=== PATIENT | female | born 1945 | race Caucasian/White ===

== ENCOUNTER → 2017-03-28 | Outpatient (CLI) | payer BC ==
[~2017-03-28] MED LIST: APIX5TAB PO; ASCO10006 PO; ASCO500T20 GT; ASP81TEC PO; CALC-69 PO; CALC-80 PO; DILT120C53 PO; DILT240C53; DILT240C86 PO; DILT360C36 PO; HYDR-3583 PO; IBAN150T5 PO; LEVO125T6 PO; LEVO200T PO; LEVO25TA2 PO; MAGN100T3 PO; MAGN250T13 PO; MAGN400T39 PO; METO-351 PO; METO-370 PO; METO-387 PO; MULT-608 PO; PANT40TA3 PO; RABE20TA PO; VITA-189 PO
--- NOTE | 2017-03-29 23:07 | Diagnostic Imaging Report ---
Digital mammogram bilateral screening with tomosynthesis This study was compared to the prior exams of 03/27/16, 03/26/15, 10/02/14 and 03/26/14. At this time, there are no current complaints. The current study was also evaluated with a Computer Aided Detection (CAD) system. The patient did undergo a lumpectomy for carcinoma in the right breast in 2010. The scar formation in the lumpectomy site in the upper-outer aspect of the right breast seen on the previous exams is again evident and no different. There is no sign of recurrent malignancy in this area. Fat necrosis calcifications are also visualized in this region. The overall appearance of the breast has not changed significantly otherwise. The fibroglandular tissues in both breasts are heterogeneously dense. This does limit the sensitivity of this exam. Overall, there does not appear to have been any adverse change. There is no primary or secondary sign of malignancy noted. The tomographic views also failed to show any sign of malignancy. The stereotactic clip in the left breast seen previously is again evident. IMPRESSION: 1. There is no evidence for recurrent malignancy in the lumpectomy site on the right. 2. There is no sign of malignancy involving either breast otherwise. ACR BI-RADS Category 1: Negative. Result letter will be mailed to the patient. Note: At least 10% of breast cancer is not imaged by mammography. Dictated by: Dictated on workstation # [id number]
== END ==
LOC: RAD 09:40
PROVIDERS: ATTEND Internal Medicine Hematology & Oncology
DX: Z12.31 Encounter for screening mammogram for malignant neoplasm of breast (principal); C50.919 Malignant neoplasm of unspecified site of unspecified female breast
CPT/HCPCS: 77067

== ENCOUNTER 2017-04-18 09:55 | Outpatient (RCR) | payer BC ==
[~2017-04-18 09:55] MED LIST changes: +METO-270 PO; +METO-272 PO; -METO-370 PO; -METO-387 PO
[2017-04-18 10:08] LABS: BASOPHILS # (AUTO) 0.1 10^3/uL (0.0-0.1); BASOPHILS % (AUTO) 1 % (0-10); EOSINOPHILS # (AUTO) 0.3 10^3/uL (0.0-0.3); EOSINOPHILS % (AUTO) 4 % (0-10); LYMPHOCYTES % (AUTO) 29 % (12-44); MEAN CORPUSCULAR HEMOGLOBIN 28 PG (25-34); MEAN CORPUSCULAR HGB CONC 32 G/DL (32-36); MEAN CORPUSCULAR VOLUME 87 FL (80-99); MEAN PLATELET VOLUME 9.6 FL (7.4-10.4); MONOCYTES # (AUTO) 0.5 X 10^3 (0.0-1.0); MONOCYTES % (AUTO) 8 % (0-12); NEUTROPHILS # (AUTO) 3.9 X 10^3 (1.8-7.8); NEUTROPHILS % (AUTO) 58 % (42-75); PLATELET COUNT 466 10^3/uL (130-400); RED BLOOD COUNT 4.54 10^6/uL (4.35-5.85); RED CELL DISTRIBUTION WIDTH 15.6 % (10.0-14.5); WHITE BLOOD COUNT 6.6 10^3/uL (4.3-11.0)
[2017-04-18 10:44] LABS: ALANINE AMINOTRANSFERASE 47 U/L (0-55); ALBUMIN 3.9 GM/DL (3.2-4.5); ANION GAP 7 MMOL/L (5-14); ASPARTATE AMINO TRANSFERASE 28 U/L (5-34); BILIRUBIN,TOTAL 0.6 MG/DL (0.1-1.0); BLOOD UREA NITROGEN 12 MG/DL (7-18); BUN/CREATININE RATIO 16; CALCIUM 9.4 MG/DL (8.5-10.1); CARBON DIOXIDE 27 MMOL/L (21-32); CHLORIDE 106 MMOL/L (98-107); CREATININE SERUM 0.73 MG/DL (0.60-1.30); GFR ESTIMATED > 60; GLUCOSE 88 MG/DL (70-105); POTASSIUM 4.3 MMOL/L (3.6-5.0); SODIUM 140 MMOL/L (135-145); TOTAL PROTEIN 7.4 GM/DL (6.4-8.2)
== END 2017-04-28 | disposition home or self-care (01) ==
LOC: ONC 09:55
PROVIDERS: ATTEND Internal Medicine Hematology & Oncology
DX: Z08 Encounter for follow-up examination after completed treatment for malignant neoplasm (principal); Z85.3 Personal history of malignant neoplasm of breast; I48.0 Paroxysmal atrial fibrillation; Z79.01 Long term (current) use of anticoagulants; Z92.3 Personal history of irradiation
CPT/HCPCS: 36415; 80053; 85025; 99213

== ENCOUNTER 2017-12-11 12:12 | Day surgery (SDC) | payer MEDICARE, BC ==
[~2017-12-11] VITALS: Ht 165.1 cm; Wt 113.4 kg
[2017-12-11] VITALS (11 sets, daily range): BP systolic 126–174; BP diastolic 66–99
[~2017-12-11 12:12] MED LIST changes: -METO-270 PO; -METO-272 PO; +METO-370 PO; +METO-387 PO
[2017-12-11] MEDS ORDERED: NS IV 1000 ML 3,000 ML ONE (12:54)
[2017-12-11 13:21] LABS: HEMOGLOBIN 14.3 G/DL (11.5-16.0); MEAN PLATELET VOLUME 10.5 FL (7.4-10.4); RED BLOOD COUNT 4.85 10^6/uL (4.35-5.85); RED CELL DISTRIBUTION WIDTH 15.3 % (10.0-14.5); WHITE BLOOD COUNT 8.1 10^3/uL (4.3-11.0)
[2017-12-11] MEDS ORDERED: NS IV 1000 ML 1,000 ML IV SCH ×2 (13:30→15:11)
[2017-12-11] MEDS ORDERED: REGADENOSON 0.4 MG/5 ML SYR (LEXISCAN) IV ONE (13:30)
[2017-12-11 13:32] LABS: INR 1.1 (0.8-1.4); PROTHROMBIN TIME PATIENT 14.1 SEC (12.2-14.7)
[2017-12-11] MEDS ORDERED: HEParin 1000 UNIT/ML (10ML VIAL) FOR BOLUS ONE (13:35)
[2017-12-11] MEDS ORDERED: LIDOCAINE 1% INJ 20 ML 20 ML VIAL ONE (13:36)
[2017-12-11 13:43] LABS: ALANINE AMINOTRANSFERASE 26 U/L (0-55); ALBUMIN 4.4 GM/DL (3.2-4.5); ALKALINE PHOSPHATASE 75 U/L (40-136); BILIRUBIN,TOTAL 0.6 MG/DL (0.1-1.0); BUN/CREATININE RATIO 14; CALCIUM 9.9 MG/DL (8.5-10.1); CARBON DIOXIDE 25 MMOL/L (21-32); CHLORIDE 105 MMOL/L (98-107); CHOLESTEROL 187 MG/DL (< 200); CREATININE SERUM 0.73 MG/DL (0.60-1.30); GFR ESTIMATED > 60; GLUCOSE 102 MG/DL (70-105); HDL CHOLESTEROL 64 MG/DL (40-60); POTASSIUM 3.9 MMOL/L (3.6-5.0); SODIUM 141 MMOL/L (135-145); TOTAL PROTEIN 7.9 GM/DL (6.4-8.2); TRIGLYCERIDES 83 MG/DL (<150); VLDL CHOLESTEROL 17 MG/DL (5-40)
[2017-12-11] MEDS ORDERED: DILT240C53 PO (13:52)
[2017-12-11] MEDS ORDERED: ACET-2422 PO (13:52)
[2017-12-11] MEDS ORDERED: METO-387 PO (13:52)
[2017-12-11] MEDS ORDERED: diphenhydrAMINE 50 MG/ML INJ (BENADRYL) ONE (14:10)
[2017-12-11] MEDS ORDERED: MIDAZOLAM 5 MG/5 ML (VERSED) VIAL ONE (14:10)
[2017-12-11] MEDS ORDERED: fentaNYL INJECTION 100 MCG/2 ML AMP ONE (14:10)
--- NOTE | 2017-12-11 14:34 | Cardiac Procedure Note-CS/ASA ---
Pre-Procedure Note Pre-Op Procedure Note H&P Reviewed The H&P was reviewed, patient examined and no changes noted. Date H&P Reviewed: December 11, 2017 Time H&P Reviewed: 14:33 Conscious Sedation Pre-Proced Time Reviewed: 14:33 ASA Class: 3 Airway Mallampati Classification: ([place] appropriate class) I. II. III, IV Lungs Heart ASA score ASA 1: a normal healthy patient ASA 2: a patient with a mild systemic disease (mid diabetes, controlled hypertension, obesity ASA 3: a patient with a severe systemic disease that limits activity (angina , COPD, prior Myocardial infarction) ASA 4: a patient with an incapacitating disease that is a constant threat to life (CHF, renal failure) ASA 5: a moribund patient not expected to survive 24 hrs. (ruptured aneurysm) ASA 6: a declared brain patient whose organs are being harvested. For emergent operations, add the letter E after the classification Grade 3 Sedation Plan: Analgesia, Amnesia, Plan communicated to team members, Discussed options with patient/fam, Discussed risks with patient/fam Note The patient is an appropriate candidate to undergo the planned procedure, sedation, and anesthesia. The patient immediately re-assessed prior to indication. ARIEL LEROY MD FACP FAC CCDS December 11, 2017 14:34
--- NOTE | 2017-12-11 15:13 | Discharge Inst-Post CATH ---
Discharge Inst-CATH Post Cardiac Cath D/C Inst Follow Up/Plan F/u with Dr Clark next week CARDIAC CATH DISCHARGE INSTRUCTIONS *Hold Metformin for 48 hours post heart cath. ACTIVITY * Go Home directly and rest. * Limit activity of the leg (or wrist if it was used) for 7 days including aerobics, swimming, jogging, bicycling, etc. * Restrict stair-climbing for 7 days if possible, if not, climb up with your non -cath leg, then bring together on the same step. * Avoid lifting, pushing, pulling or excessive movement of the affected extremity for 7 days. * Customary sexual activity may be resumed after 2 days-use caution not to use a position that strains or causes pain to the affected extremity. * No driving for 24 hours. * NO SMOKING. * Avoid straining for bowel movements for 7 days. * Gentle walking on level ground is allowed. * Returning to work will depend on the type of procedure and the results. Your doctor will discuss this with you. CALL YOUR DOCTOR FOR ANY OF THE FOLLOWING: *If bleeding from the puncture site occurs- Apply gentle pressure to site with clean cloth and call your doctor or EMS. * If a knot or lump forms under the skin, increases in size, or causes pain. * If bruising appears to be worsening or moving further down your leg instead of disappearing. * Temperature above 101 F. CARE OF YOUR GROIN INCISION; * Bruising or purple discoloration of the skin near the puncture site is common. * You may shower only, no bathtub bathing for 5 days. Be careful to avoid slipping as your leg may feel stiff. * If a closure device was used on your femoral artery, please see the attached guide regarding care of the device and your leg. * REMOVE the dressing from your groin the next day after your procedure in the shower. CARE OF YOUR WRIST INCISION; * Bruising or purple discoloration of the skin near the puncture site is common. * You may shower. * DO NOT submerge wrist. * Remove dressing in 24 hours. ARIEL CLARK MD FACP FAC CCDS December 11, 2017 15:13
--- NOTE | 2017-12-11 15:14 | Discharge Inst-Cardiology ---
Discharge Inst-Cardiac Discharge Medications Continued Medications: Acetaminophen (Acetaminophen ER) 650 Mg Tablet.er 1300 MG PO HS, TAB TAKES 2 (650 MG) TABLETS Apixaban (Eliquis) 5 Mg Tablet 5 MG PO BID, TAB Ascorbic Acid (Vitamin C) 1,000 Mg Tablet 1000 MG PO DAILY, TAB Calcium Citrate/Vitamin D3 (Calcium Citrate - Vit D Tablet) 1 Each Tablet 1 TAB PO BID, TAB Diltiazem HCl (Cartia Xt) 240 Mg Cap.er.24h 240 MG PO BID, CAP Levothyroxine Sodium (Synthroid) 200 Mcg Tablet 200 MCG PO DAILY, TAB TAKES ALONG WITH 25MCG TABLET Levothyroxine Sodium (Synthroid) 25 Mcg Tablet 25 MCG PO DAILY, TAB TAKES ALONG WITH 200MCG TABLET Magnesium Oxide (Magnesium) 250 Mg Tablet 250 MG PO DAILY, TAB Metoprolol Succinate (Metoprolol Succinate) 50 Mg Tab.er.24h 50 MG PO DAILY, TAB Metoprolol Succinate (Metoprolol Succinate) 25 Mg Tab.er.24h 25 MG PO HS, TAB Pantoprazole Sodium (Pantoprazole Sodium) 40 Mg Tablet.dr 40 MG PO DAILY, TAB Vitamin B Complex (B Complex) 1 Each Tablet 1 TAB PO DAILY, TAB ARIEL LEROY MD FACP FACC CCDS December 11, 2017 15:14
[2017-12-11] MEDS ORDERED: PATIENT MAY USE OWN MEDS, ALL PO SCH (15:15)
--- NOTE | 2017-12-11 19:42 | CARDIAC CATHETERIZATION ---
DATE OF SERVICE: 12/11/2017 The patient is a 72-year-old lady who has multiple coronary artery disease risk factors and who has been experiencing increasing shortness of breath. Cardiac catheterization was carried out after having obtained an informed consent. PROCEDURE: She was brought to the cardiac catheterization laboratory in a fasting state. Right groin was prepared and draped in the usual sterile fashion. Lidocaine 1% local anesthesia. Modified Seldinger technique was used to advance a 5-Ecuadorean sheath in right femoral artery, 5-[place]cuadorean JL4 catheter for left coronary angiography, 5-[place]cuadorean JR4 catheter for right coronary angiography, 5-[place]cuadorean pigtail catheter was used for left heart catheterization, left ventricular angiography. At the end of the procedure, angiography of the right femoral artery was carried out through the sheath and Mynx was used to achieve hemostasis. She tolerated the procedure well. HEMODYNAMICS: Left ventricular end-diastolic pressure following coronary angiography was 13 mmHg. There is no significant pressure gradient pullback across the aortic valve. Ascending aortic pressure was 130/74 with a mean of 95 mmHg. LEFT VENTRICULAR ANGIOGRAPHY: Left ventricular angiography was carried out in the right anterior oblique projection. Global left ventricular systolic function normal. No regional wall motion abnormalities seen. Left ventricular ejection fraction approximately 65%. There does not appear to be significant mitral regurgitation. CORONARY ANGIOGRAPHY: Left main coronary artery, left anterior descending artery, left circumflex artery, right coronary artery are all free of any angiographically significant coronary artery disease. Right coronary artery is dominant. CONCLUSION: 1. No angiographically significant coronary artery disease. 2. Normal regional wall motion. 3. Normal global left ventricular systolic function with an ejection fraction of 65%. 4. Mild elevation of left ventricular end-diastolic pressure. DISCUSSION AND RECOMMENDATIONS: Based on results of the study, her shortness of breath does not appear to be of coronary origin or related to cardiomyopathy. It appears likely that the shortness of breath is due to atrial fibrillation with an intermittently rapid ventricular rate. We have advised further follow up as an outpatient for further treatment of her atrial fibrillation. Oral anticoagulation for stroke prophylaxis being continued. Beta blockers and calcium channel blockers are being continued. Job ID: [id number] DocumentID: [id number] Dictated Date: 12/11/2017 15:18:32 Baking Powder Mixer Date: 12/11/2017 19:42:09 Dictated By: ARIEL LEROY MD, MA, FACP, FACC,
== END 2017-12-11 18:15 | disposition home or self-care (01) ==
LOC: CATH 12:12
PROVIDERS: ATTEND Internal Medicine Cardiovascular Disease
DX: I48.0 Paroxysmal atrial fibrillation (principal); R06.02 Shortness of breath; I08.3 Combined rheumatic disorders of mitral, aortic and tricuspid valves; E03.9 Hypothyroidism, unspecified; G47.33 Obstructive sleep apnea (adult) (pediatric); E66.9 Obesity, unspecified; Z68.41 Body mass index [BMI] 40.0-44.9, adult; Z79.01 Long term (current) use of anticoagulants; Z79.899 Other long term (current) drug therapy; Z87.891 Personal history of nicotine dependence
CPT/HCPCS: 36415; 80053; 80061; 85027; 85610; 85730; 87081; 93458

== ENCOUNTER 2017-12-25 06:55 | Day surgery (SDC) | payer MEDICARE ==
[2017-12-25] VITALS (7 sets, daily range): BP systolic 107–142; BP diastolic 62–104
[~2017-12-25] VITALS: Ht 165.1 cm; Wt 113.4 kg
[~2017-12-25 06:55] MED LIST changes: +ACET-2422 PO; +DILT240C53 PO
[2017-12-25] MEDS ORDERED: NS IV 1000 ML 1,000 ML ONE (07:04)
[2017-12-25] MEDS ORDERED: NS IV 1000 ML 1,000 ML IV SCH (07:15)
[2017-12-25 07:31] LABS: MEAN PLATELET VOLUME 10.3 FL (7.4-10.4); RED BLOOD COUNT 4.75 10^6/uL (4.35-5.85); RED CELL DISTRIBUTION WIDTH 15.4 % (10.0-14.5); WHITE BLOOD COUNT 8.1 10^3/uL (4.3-11.0)
[2017-12-25] MEDS ORDERED: FLEC100T PO (07:40)
[2017-12-25 07:43] LABS: INR 1.1 (0.8-1.4); PROTHROMBIN TIME PATIENT 14.1 SEC (12.2-14.7)
[2017-12-25] MEDS ORDERED: proPOfol 200 MG/20 ML (DIPRIVAN) VIAL IV ONE (07:48)
[2017-12-25] MEDS ORDERED: MIDAZOLAM 2 MG/2 ML (VERSED) VIAL ONE (07:48)
[2017-12-25 07:52] LABS: ALANINE AMINOTRANSFERASE 29 U/L (0-55); ALBUMIN 4.1 GM/DL (3.2-4.5); ALKALINE PHOSPHATASE 81 U/L (40-136); BILIRUBIN,TOTAL 0.4 MG/DL (0.1-1.0); BUN/CREATININE RATIO 19; CALCIUM 9.5 MG/DL (8.5-10.1); CARBON DIOXIDE 26 MMOL/L (21-32); CHLORIDE 105 MMOL/L (98-107); CHOLESTEROL 185 MG/DL (< 200); CREATININE SERUM 0.74 MG/DL (0.60-1.30); GFR ESTIMATED > 60; GLUCOSE 103 MG/DL (70-105); HDL CHOLESTEROL 59 MG/DL (40-60); POTASSIUM 4.3 MMOL/L (3.6-5.0); SODIUM 140 MMOL/L (135-145); TOTAL PROTEIN 7.8 GM/DL (6.4-8.2); TRIGLYCERIDES 82 MG/DL (<150); VLDL CHOLESTEROL 16 MG/DL (5-40)
--- NOTE | 2017-12-25 08:42 | Progress Note-Standard ---
Standard Progress Note Progress Notes/Assess & Plan Date Seen by Provider: December 25, 2017 Time Seen by Provider: 08:30 Progress/Assessment & Plan mac anesthesia. afib diagnosis. start time 0830 end time 0835. 50mg propofol iv and 2mg versed iv. patient tolerated procedure well. DERIK VICENTE CRNA December 25, 2017 08:42
--- NOTE | 2017-12-25 09:33 | Cardiac Procedure Note-CS/ASA ---
Pre-Procedure Note Pre-Op Procedure Note H&P Reviewed The H&P was reviewed, patient examined and no changes noted. Date H&P Reviewed: December 25, 2017 Time H&P Reviewed: 08:18 Conscious Sedation Pre-Proced Time Reviewed: 08:18 ASA Class: 3 Airway Mallampati Classification: ([place] appropriate class) I. II. III, IV Lungs Heart ASA score ASA 1: a normal healthy patient ASA 2: a patient with a mild systemic disease (mid diabetes, controlled hypertension, obesity ASA 3: a patient with a severe systemic disease that limits activity (angina , COPD, prior Myocardial infarction) ASA 4: a patient with an incapacitating disease that is a constant threat to life (CHF, renal failure) ASA 5: a moribund patient not expected to survive 24 hrs. (ruptured aneurysm) ASA 6: a declared brain patient whose organs are being harvested. For emergent operations, add the letter E after the classification Grade 3 Sedation Plan: Analgesia, Amnesia, Plan communicated to team members, Discussed options with patient/fam, Discussed risks with patient/fam Note The patient is an appropriate candidate to undergo the planned procedure, sedation, and anesthesia. The patient immediately re-assessed prior to indication. ARIEL LEROY MD FACP FAC CCDS December 25, 2017 09:33
--- NOTE | 2017-12-25 13:45 | OPERATIVE REPORT ---
DATE OF SERVICE: 12/25/2017 PREOPERATIVE DIAGNOSIS: Atrial fibrillation. POSTOPERATIVE DIAGNOSIS: Sinus rhythm. PROCEDURE PERFORMED: External electrical cardioversion. INDICATIONS: The patient is a 72-year-old lady, who is known to have paroxysmal atrial fibrillation, was on chronic anticoagulation with apixaban stroke prophylaxis. She has had recurrent atrial fibrillation. Previously, she has had electrical cardioversion in 2016. She now comes in for repeat electrical cardioversion due to persistent atrial fibrillation associated with the symptoms of palpitation and shortness of breath and signs of a difficult rate control. She has been treated with flecainide after cardiac catheterization did not show any significant coronary artery disease. She remained in atrial fibrillation and external electrical cardioversion was carried out today after having obtained an informed consent. DESCRIPTION OF PROCEDURE: [facility] A short acting anesthesia was given by the nurse ticket collector. She received 100 joules external synchronized electrical cardioversion, which did not convert her to sinus rhythm. She then received another 50 joules of synchronized external electrical cardioversion, which changed atrial fibrillation to sinus rhythm. She tolerated the procedure well. Job ID: [id number] DocumentID: [id number] Dictated Date: 12/25/2017 08:40:11 Film Processor Date: 12/25/2017 13:45:05 Dictated By: ARIEL LEROY MD, MA, FACP, FACC,
== END 2017-12-25 09:50 | disposition home or self-care (01) ==
LOC: CATH 06:55
PROVIDERS: ATTEND Nurse Practitioner Family
DX: I48.91 Unspecified atrial fibrillation (principal); Z11.2 Encounter for screening for other bacterial diseases; Z87.891 Personal history of nicotine dependence; R06.00 Dyspnea, unspecified; E03.9 Hypothyroidism, unspecified; G47.30 Sleep apnea, unspecified; K21.9 Gastro-esophageal reflux disease without esophagitis; Z68.39 Body mass index [BMI] 39.0-39.9, adult; E66.9 Obesity, unspecified
CPT/HCPCS: 36415; 80053; 80061; 85027; 85610; 85730; 87081; 92960; 93005

== ENCOUNTER → 2018-04-02 | Outpatient (CLI) | payer MEDICARE ==
[~2018-04-02] MED LIST changes: +FLEC100T PO
--- NOTE | 2018-04-02 13:02 | Diagnostic Imaging Report ---
INDICATION: Routine screening. COMPARISON: Comparison is made with prior mammogram from 03/28/2017 and 03/27/2016. TECHNIQUE: 2D and 3D bilateral screening mammography was performed with computer-aided detection (CAD) system. FINDINGS: Both breasts remain heterogeneously dense, limiting the sensitivity of mammography. Post-lumpectomy changes in the right breast with calcifications appear stable. Fibronodular parenchymal pattern in the left breast appears stable. There is a biopsy clip in the left breast. No dominant mass or malignant appearing microcalcifications are seen. The axillae are unremarkable. IMPRESSION: No mammographic features suspicious for malignancy are identified. ACR BI-RADS Category 2: Benign findings. Result letter will be mailed to the patient. Note: At least 10% of breast cancer is not imaged by mammography. Dictated by: Dictated on workstation # [id number]
== END ==
LOC: RAD 09:48
PROVIDERS: ATTEND Nurse Practitioner Adult Health
DX: Z12.31 Encounter for screening mammogram for malignant neoplasm of breast (principal)
CPT/HCPCS: 77067

== ENCOUNTER → 2018-05-15 | Outpatient (CLI) | payer MEDICARE ==
--- NOTE | 2018-05-15 15:30 | Diagnostic Imaging Report ---
PROCEDURE: MRI right joint lower extremity without contrast. TECHNIQUE: Multiplanar, multisequence non contrast-enhanced MRI of the right lower extremity was accomplished. INDICATION: Fall in January 2018. Patient complains of pain in the anterior and medial right knee. FINDINGS: Evaluation of the marrow does demonstrate an acute fracture of the distal femur. The fracture appears to be longitudinally oriented along the axis of the distal femur. Fracture line commences proximally at the medial cortex in the supracondylar location and extends slightly obliquely laterally through the intercondylar groove. This does extend to the articular surface. No significant displacement or angulation is seen. The proximal tibia and fibula appear intact. There is a small joint effusion present. There is some edema identified in the subcutaneous tissues. Tricompartmental degenerative changes are seen with joint space narrowing and marginal spurring. The PCL is intact. Proximal third fibers of the ACL are somewhat distorted likely secondary to the patient's distal femur fracture. Middle and distal third fibers of the ACL appear to be intact. Medial and lateral collateral ligament complexes appear to be intact. Medial meniscus is intact. The lateral meniscus body is significantly thinned perhaps on a degenerative basis. No discrete tear or displaced meniscal fragment is identified. The extensor mechanism is unremarkable. IMPRESSION: 1. Acute distal femur fracture with intra-articular extension, as described. 2. Poorly visualized proximal one third fibers of the ACL secondary to the fracture. Tear cannot be entirely excluded. The PCL is intact. No other ligamentous injury is seen. 3. Significant thinning of the body of the lateral meniscus which could be on a degenerative basis. No definite meniscal tear or displaced meniscal fragment is seen. 4. Tricompartmental degenerative changes and small joint effusion. Dr. Luis Fernando Anderson was notified of these results prior to this dictation. Dictated by: Dictated on workstation # [id number]
== END ==
LOC: RAD 13:07
PROVIDERS: ATTEND Orthopaedic Surgery
DX: S72.491A Other fracture of lower end of right femur, initial encounter for closed fracture (principal); S83.241A Other tear of medial meniscus, current injury, right knee, initial encounter; M17.11 Unilateral primary osteoarthritis, right knee; W19.XXXA Unspecified fall, initial encounter
CPT/HCPCS: 73721

== ENCOUNTER 2018-06-16 18:31 | Emergency (ER) | payer MEDICARE ==
[~2018-06-16] VITALS: Ht 165.1 cm; Wt 111.1 kg
[2018-06-16] MEDS ORDERED: HYDROcodone/APAP 7.5 MG/325 MG (LORTAB, LORCET PLUS) TABLET PO STA (19:51)
[2018-06-16] MEDS ORDERED: LIDOCAINE/EPI 1%-1:100,000 (XYLOCAINE) 20ML INJ ONE (20:00)
--- NOTE | 2018-06-16 20:09 | ED Lower Extremity ---
General Chief Complaint: Laceration Stated Complaint: FELL AT HOME, INJURED RIGHT VILLA Nursing Triage Note: PATIENT TO ER VIA WHEELCHAIR WITH DAUGHTER AND SPOUSE. PATIENT COMPLAINS OF A LACERATION TO THE RIGHT LOWER LEG. PATIENT STATES SHE HAD BROKEN HER RIGHT FEMUR IN JANUARY AND WAS JUST RELEASED TO WALK AGAIN. SHE STATES SHE WAS TRANSFERRING FROM HER WALKER TO THE WHEELCHAIR AND THE WHEELCHAIR WAS NOT LOCKED. SHE STATES THE WALKER CAUGHT HER RIGHT LOWER LEG AND SHE HAS A LARGE LACERATION TO THE RIGHT LOWER LEG. LACERATION IS DEEP WITH STEADY BLEEDING PRESENT. Nursing Sepsis Screen: No Definite Risk History of Present Illness Date Seen by Provider: Jun 16, 2018 Time Seen by Provider: 19:50 Initial Comments 72 year old female presents for laceration to her right lower extremity. She was transferring from her walker to her wheelchair, wheelchair was not walked and she fell, catching her lower leg on the walker and causing a laceration. She denies any head injury or additional complaints of discomfort related to the fall. Her right femur is nontender. There was no loss of consciousness. She is on Eliquis for atrial fibrillation. Her last tetanus was 2 years ago. Onset: just prior to arrival Pain/Injury Location: right leg (lower 1/3 ant tibia) Method of Injury: fell Allergies and Home Medications Allergies Coded Allergies: tetracycline (Unverified Allergy, Unknown, 03/23/16) cefdinir (Unverified Adverse Reaction, Intermediate, DIARRHEA, 12/14/10) Home Medications Acetaminophen 650 Mg Tablet.er, 1,300 MG PO BID PRN for PAIN-MILD, (Reported) TAKES 2 (650 MG) TABLETS Apixaban 5 Mg Tablet, 5 MG PO BID, (Reported) Ascorbic Acid 1,000 Mg Tablet, 1,000 MG PO DAILY, (Reported) Calcium Citrate/Vitamin D3 1 Each Tablet, 1 TAB PO DAILY, (Reported) Cephalexin 500 Mg Capsule, 500 MG PO TID Prescribed by: NOE HARRISON on 06/16/182118 Diltiazem HCl 240 Mg Cap.er.24h, 240 MG PO BID, (Reported) Flecainide Acetate 100 Mg Tablet, 100 MG PO Q12H, (Reported) Hydrocodone Bit/Acetaminophen 1 Tab Tab, 1 EACH PO Q6H Prescribed by: NOE HARRISON on 06/16/182118 Levothyroxine Sodium 200 Mcg Tablet, 200 MCG PO DAILY, (Reported) TAKES ALONG WITH 25MCG TABLET Levothyroxine Sodium 25 Mcg Tablet, 25 MCG PO DAILY, (Reported) TAKES ALONG WITH 200MCG TABLET Magnesium Oxide 250 Mg Tablet, 250 MG PO DAILY, (Reported) Metoprolol Succinate 50 Mg Tab.er.24h, 50 MG PO DAILY, (Reported) Metoprolol Succinate 25 Mg Tab.er.24h, 25 MG PO HS, (Reported) Pantoprazole Sodium 40 Mg Tablet.dr, 40 MG PO DAILY, (Reported) Vitamin B Complex 1 Each Tablet, 1 TAB PO DAILY, (Reported) Patient Home Medication List Home Medication List Reviewed: Yes Review of Systems Constitutional: no symptoms reported, see HPI Skin: see HPI, lesions (Large laceration right lower extremity ) All Other Systems Reviewed Negative Unless Noted: Yes Past Wjuukrb-Rpzkei-Ofscvg Hx Past Med/Social Hx: Reviewed Nursing Past Med/Soc Hx Patient Social History Alcohol Use: Denies Use Number of Drinks Today: Alcohol Beverage of Choice: Beer, Wine Recreational Drug Use: No Smoking Status: Former Smoker Type Used: Cigarettes Former Smoker, Quit: Jun 05, 2015 2nd Hand Smoke Exposure: No Recent Foreign Travel: No Contact w/Someone Who Travel: No Recent Infectious Disease Expo: No Recent Hopitalizations: No Immunizations Up To Date Tetanus Booster (TDap): Less than 5yrs PED Vaccines UTD: Yes Date of Pneumonia Vaccine: Apr 19, 2016 Date of Influenza Vaccine: Apr 19, 2016 Seasonal Allergies Seasonal Allergies: Yes (took allergy shots for 5 years) Past Medical History Surgeries: Yes Abdominal, Breast, Gallbladder, Orthopedic Respiratory: No Currently Using CPAP: No Currently Using BIPAP: No Cardiac: Yes Atrial Fibrillation Neurological: No (POLIO) Reproductive Disorders: No Female Reproductive Disorders: Denies Sexually Transmitted Disease: No HIV/AIDS: No Gastrointestinal: No Gastroesophageal Reflux Musculoskeletal: Yes (ARTHRITIS, RECENT FEMUR FRACTURE) Endocrine: Yes Hypothyroidsim Hearing Impairment: Bilateral Hearing Aide Cancer: Yes (lumpectomy in 2010 and radiation 28 days) Breast Psychosocial: No Integumentary: No Blood Disorders: No Adverse Reaction/Blood Tranf: No Family Medical History Cardiovascular disease 19 MOTHER, Onset:79 ( at 79) G8 SISTER, Onset:75 (alive) Completed stroke 19 FATHER, Onset:77 ( at 77 with stroke) Gastroenteritis G8 SISTER, Onset:64 (alive) No Pertinent Family Hx Physical Exam Vital Signs Vital Signs - First Documented 06/16/18 19:01 Temp 98.2 Pulse 117 Resp 20 B/P (MAP) 134/75 (94) Pulse Ox 98 O2 Delivery Room Air Capillary Refill : Less Than 3 Seconds Height, Weight, BMI Height: 5'5.00" Weight: 245lbs. 0.0oz. 111.210600iw; 41.6 BMI Method:Stated General Appearance: WD/WN, no apparent distress Cardiovascular: tachycardia, irregularly irregular Respiratory: chest non-tender, lungs clear, normal breath sounds Gastrointestinal: normal bowel sounds, non tender, soft Legs: right leg soft tissue tenderness, right leg swelling, right leg other ( marked laceration to the right lower extremity, active bleeding noted, skin tear present, anterior distal tibia) Neurologic/Tendon: normal sensation, normal motor functions, normal tendon functions Neurologic/Psychiatric: no motor/sensory deficits, alert, normal mood/affect, oriented x 3 Skin: normal color, warm/dry Lymphatic: no adenopathy Procedures/Interventions Wound Location: Lower Extremities (right, distal one third anterior tibia, 6 x 4 cm) Wound Length (cm): 6 Wound's Depth, Shape: into muscle, irregular, flap Wound Explored: clean Irrigated w/ Saline (ccs): 500 Betadine Prep?: Yes Anesthesia: Lidocaine w/ Epi Volume Anesthetic (ccs): 15 Wound Debrided: minimal Suture: Ethlion Suture Size: 4-0 Number of Sutures: 10 Sterile Dressing Applied?: Yes Progress A letter cautery used to control bleeding and cauterized base of the wound were no skin coverage was available. Edges approximated, where skin coverage available. Patient tolerated procedure well, no active bleeding. Adaptic applied to skin, Telfa, 4 x 4's, ABD pads, Kerlex and Coban and applied. Progress/Results/Core Measures Results/Orders My Orders Orders - NOE HARRISON Hydrocodone/Apap 7.5/325 Tab (Lortab 7. (06/16/18 19:51) Lidocaine/Epi 2% 1:100,000 (Xylocaine/Ep (06/16/18 20:15) Rx-Cephalexin Capsule (Rx-Keflex Capsule (06/16/18 21:13) Medications Given in ED Current Medications Medications Dose Ordered Sig/Darryn Route Start Time Stop Time Status Last Admin Dose Admin Lidocaine/ Epinephrine 20 ml ONCE ONCE INJ 11/18/18 20:15 06/16/18 20:16 DC 06/16/18 21:00 20 ML Vital Signs/I&O 06/16/18 06/16/18 19:01 21:35 Temp 98.2 98.2 Pulse 117 117 Resp 20 20 B/P (MAP) 134/75 (94) 134/75 (94) Pulse Ox 98 98 O2 Delivery Room Air Room Air Blood Pressure Mean: 94 Progress Progress Note : Time: 19:50 Progress Note Initial evaluation completed, hydrocodone/APAP 7.5/325 mg orally for pain. Discussed wound closure with the patient and her family. Due to the limited skin coverage available to approximate. We'll have to try for secondary wound closure. We will attempt to approximate the edges as able to complete, we will cauterize any active bleeders and the base of the wound. She understands this could be a lengthy process in healing. In addition to her taking Eliquis bleeding risk for higher. She has received a tetanus shot in the last 2 years, this will not be repeated. 2100 her blood pressure has been labile throughout the closure of the wound. She is drinking Pedialyte, alert and oriented. No additional complaints of injury or discomfort at this time. She transferred from bed to will chair with minimal assistance. Discharge instructions and return precautions reviewed with the patient. Departure Impression Primary Impression: Laceration of right lower leg Qualified Codes: S81.811A - Laceration without foreign body, right lower leg, initial encounter Disposition: 01 HOME, SELF-CARE Condition: Improved Departure-Patient Inst. Decision time for Depature: 21:00 Referrals: KRISTAL GAYTAN MD (PCP/Family) Primary Care Physician Patient Instructions: Laceration Repair With Stitches (DC), Skin Abrasions (DC) Add. Discharge Instructions: Reenforce dressing as needed for the next 48 hours. Ice for 20 minutes every 2 hours while awake. Elevate right lower extremity. Continue taking your home medications. Schedule appt for or [facility] for wound check and dressing change. Take Keflex 500 mg 3 times a day as prescribed. Consider follow-up with Dr. Kern, [facility] for wound care appointment . Take the hydrocodone every 6-8 hours as needed for pain. Return to emergency department for new problems or concerns. Sutures will need to be removed in 7-10 days. All discharge instructions reviewed with patient and/or family. Voiced understanding. Scripts Hydrocodone Bit/Acetaminophen (Hydrocodone/Acetaminophen 5/325mg Tablet) 1 Tab Tab 1 EACH PO Q6H for PAIN MDD 10, #30 TAB 0 Refills Prov: NOE HARRISON 06/16/18 Cephalexin (Keflex) 500 Mg Capsule 500 MG PO TID, #21 CAP 0 Refills Prov: NOE HARRISON 06/16/18 Copy Copies To 1: KRISTAL GAYTAN MD, AMY ARNP Jun 16, 2018 20:09
[2018-06-16] MEDS ORDERED: LIDOCAINE/EPI 2% 1:100,00 (XYLOCAINE) 20 ML VIAL INJ ONE (20:15)
[2018-06-16] MEDS ORDERED: RX-CEPHALEXIN (KEFLEX) 250 MG CAP PPK#4 PO STA (21:13)
[2018-06-16] MEDS ORDERED: ACHD5005 PO (21:19)
[2018-06-16] MEDS ORDERED: CEPH-507 PO (21:19)
[2018-06-16 21:35] VITALS: BP 134/75
== END 2018-06-16 21:35 | disposition home or self-care (01) ==
LOC: EDUNIT# 18:31 → ER 18:33
DX: S81.811A Laceration without foreign body, right lower leg, initial encounter (principal); I48.91 Unspecified atrial fibrillation; K21.9 Gastro-esophageal reflux disease without esophagitis; E03.9 Hypothyroidism, unspecified; Z85.3 Personal history of malignant neoplasm of breast; Z92.21 Personal history of antineoplastic chemotherapy; Z82.49 Family history of ischemic heart disease and other diseases of the circulatory system; Z86.12 Personal history of poliomyelitis; Z88.1 Allergy status to other antibiotic agents; Z88.8 Allergy status to other drugs, medicaments and biological substances; Z79.01 Long term (current) use of anticoagulants; Z87.891 Personal history of nicotine dependence; W05.0XXA Fall from non-moving wheelchair, initial encounter
CPT/HCPCS: 12032

== ENCOUNTER → 2019-01-16 | Outpatient (CLI) | payer MEDICARE ==
[~2019-01-16] MED LIST changes: +ACHD5005 PO; +CEPH-507 PO
--- NOTE | 2019-01-16 15:21 | Diagnostic Imaging Report ---
PROCEDURE: MRI right joint lower extremity without contrast. TECHNIQUE: Multiplanar, multisequence non contrast-enhanced MRI of the right lower extremity was accomplished. INDICATION: Fell, knee pain. FINDINGS: The previous MRI right knee exam of 05/15/2018 noted an acute intercondylar fracture of the distal femur. On this study, there has been healing of the fracture, although the fracture lines are still partially visualized. Furthermore, in the interval since the previous exam, a prominent area of abnormal signal has developed along the anterior aspect of the medial femoral condyle. Most likely, this is due to bone edema from a recent contusion and/or microfracture. No other acute bony abnormality is appreciated. There is severe degenerative disease involving the articular surfaces of the medial femoral condyle and medial proximal tibia, however. There is also marked narrowing of the lateral aspect of the patellofemoral space. The lateral compartment shows only mild degenerative disease. On the prior exam, there is a question of a partial tear of the anterior cruciate ligament. On this study, the anterior cruciate ligament is not visualized, and I suspect that the ACL is completely torn. The posterior cruciate ligament, the quadriceps tendon, the collateral ligaments, the biceps femoris tendon, and the iliotibial band are intact. On the prior exam, the infrapatellar tendon did have somewhat of a shortened appearance. That finding is again evident. There is no sign of an injury to the infrapatellar tendon. The previous exam did suggest that the lateral meniscus was thinned on a degenerative basis. That finding is again evident. I do suspect that the lateral meniscus is partially torn. There is also now a tear of the anterior horn of the medial meniscus, and there may be an intrasubstance tear of the posterior horn of the medial meniscus as well. In the interval since the prior study, a moderate joint effusion has developed. There is also now generalized soft tissue edema about the knee joint. IMPRESSION: 1. The intercondylar fracture of the distal femur seen on the previous exam has partially healed, although fracture lines are still evident. 2. There is a prominent area of bone edema involving the medial femoral condyle. Most likely, this is due to a recent contusion and/or microfracture. There is no acute bony abnormality noted otherwise. 3. There is severe degenerative disease involving the medial compartment of the knee joint and the patellofemoral space. 4. The poor visualization of the anterior cruciate ligament would indicate that the ACL is completely torn. The other major ligaments and tendons are intact. 4. There are tears involving both menisci. 5. There is a moderate joint effusion present. Dictated by: Dictated on workstation # [id number]
== END ==
LOC: RAD 11:53
PROVIDERS: ATTEND Orthopaedic Surgery
DX: S72.424 Nondisplaced fracture of lateral condyle of right femur (principal); S83.241A Other tear of medial meniscus, current injury, right knee, initial encounter; S83.281A Other tear of lateral meniscus, current injury, right knee, initial encounter; M17.11 Unilateral primary osteoarthritis, right knee; W19.XXXA Unspecified fall, initial encounter
CPT/HCPCS: 73721

== ENCOUNTER 2019-05-21 09:57 | Outpatient (CLI) | payer MEDICARE ==
[~2019-05-21] VITALS: Ht 165 cm; Wt 124.1 kg
[2019-05-21 10:15] VITALS: BP 130/70
== END 2019-05-21 10:37 | disposition home or self-care (01) ==
LOC: PREOP 09:57
PROVIDERS: ATTEND Orthopaedic Surgery
DX: Z01.818 Encounter for other preprocedural examination (principal)
CPT/HCPCS: 87081

== ENCOUNTER → 2019-05-21 | Outpatient (CLI) | payer BC, MEDICARE ==
--- NOTE | 2019-05-21 13:22 | Diagnostic Imaging Report ---
INDICATION: Routine screening. COMPARISON: 04/02/2018 and 03/28/2017. TECHNIQUE: 2D and 3D bilateral screening mammography was performed with CAD. FINDINGS: Scattered fibroglandular densities are identified bilaterally. Post-therapeutic changes in the right breast with calcifications are again noted. A biopsy clip in the retroareolar left breast is noted. The overall parenchymal pattern appears to be stable. No new mass or malignant appearing microcalcifications are seen. The axillae are unremarkable. IMPRESSION: No mammographic features suspicious for malignancy are identified. ACR BI-RADS Category 2: Benign findings. Result letter will be mailed to the patient. Note: At least 10% of breast cancer is not imaged by mammography. Dictated by: Dictated on workstation # [id number]
== END ==
LOC: RAD 10:26
PROVIDERS: ATTEND Family Medicine
DX: Z12.31 Encounter for screening mammogram for malignant neoplasm of breast (principal)
CPT/HCPCS: 77067

== ENCOUNTER 2019-05-28 06:05 | Day surgery (SDC) | payer BC, MEDICARE ==
--- NOTE | 2019-05-15 06:20 | HISTORY AND PHYSICAL ---
DATE OF SERVICE: 05/28/2019 ADMISSION HISTORY AND PHYSICAL This will be for outpatient surgery on 05/28/2019 for right knee arthroscopy. HISTORY OF PRESENT ILLNESS: The patient is a 73-year-old female with longstanding right knee pain. She has significant osteoarthritis of the right knee, but has lack of extension due to polio. Therefore, she is not a right candidate for total knee arthroplasty. She has undergone treatment with injections, anti-inflammatories and rest without relief and due to functional impairment and failure to improve with conservative measures, the patient elected to proceed with arthroscopy to try to obtain some symptomatic relief. REVIEW OF SYSTEMS: No chest pain, no shortness of breath, no dysuria. PAST MEDICAL HISTORY: Atrial fibrillation and polio. PAST SURGICAL HISTORY: Cholecystectomy, breast cancer, herniorrhaphy, right ankle, right shoulder, coronary catheterization. FAMILY HISTORY: Noncontributory. PRIMARY CARE PROVIDER: Dr. Rodriguez. MEDICATIONS: Cartia, Eliquis, metoprolol, Synthroid, pantoprazole, magnesium, vitamin C. ALLERGIES: TETRACYCLINE. SOCIAL HISTORY: The patient is a former smoker. She drinks alcohol rarely. PHYSICAL EXAMINATION: GENERAL: The patient is well-developed, well-nourished, in no acute distress. HEENT: Normocephalic, atraumatic. Pupils are equal, round, reactive to light. Oropharynx is clear. NECK: Supple, no lymphadenopathy. LUNGS: Clear to auscultation bilaterally. HEART: Regular rate and rhythm. ABDOMEN: Soft, nontender, nondistended. EXTREMITIES: Right knee demonstrates tenderness over the medial femoral condyle. She has tenderness along the medial joint line. She has moderate effusion. Range of motion is at her baseline. There is no varus valgus laxity. Negative anterior and posterior drawer. 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 PLAN: Right knee arthroscopy with chondroplasty, partial meniscectomy. Risks, benefits, options, ramifications and recovery have been discussed at length with the patient. She understands and wishes to proceed. Job ID: [id number] DocumentID: [id number] Dictated Date: 05/13/2019 09:45:50 Sports Athletic Trainer Date: 05/13/2019 12:55:31 Dictated By: BINA DOTSON MD
[~2019-05-28] VITALS: Ht 165 cm; Wt 124.1 kg
[2019-05-28] VITALS (9 sets, daily range): BP systolic 93–133; BP diastolic 61–93
[2019-05-28] MEDS ORDERED: LACTATED RINGERS 1,000 ML IV PRN (06:07)
[2019-05-28] MEDS ORDERED: ceFAZolin INJECTION 1,000 MG in WATER (STERILE) FOR INJECTION 10 ML IV ONE (06:15)
[2019-05-28] MEDS ORDERED: CATHETER FLUSH 10 ML SYR IV PRN (06:45)
[2019-05-28] MEDS ORDERED: MIDAZOLAM 2 MG/2 ML (VERSED) VIAL ONE (07:10)
[2019-05-28] MEDS ORDERED: fentaNYL INJECTION 100 MCG/2 ML AMP ONE (07:10)
[2019-05-28] MEDS ORDERED: FAMOTIDINE 20MG/2ML IV (PEPCID) ONE (07:18)
--- NOTE | 2019-05-28 07:24 | Progress Note-Pre Operative ---
Pre-Operative Progress Note H&P Reviewed The H&P was reviewed, patient examined and no changes noted. Date Seen by Provider: May 28, 2019 Time Seen by Provider: 07:24 Date H&P Reviewed: May 28, 2019 Time H&P Reviewed: 07:24 Pre-Operative Diagnosis: right knee medial and lateral meniscus tears and chondromalacia BINA DOTSON MD May 28, 2019 07:24 POS
--- NOTE | 2019-05-28 07:25 | Progress Note-Post Operative ---
Post-Operative Progess Note Surgeon (s)/Kiln Maintenance (s) Surgeon BINA DOTSON MD Kiln Maintenance: Jairo Hanna Pre-Operative Diagnosis right knee medial and lateral meniscus tears and chondromalacia Post-Operative Diagnosis right knee medial and lateral meniscus tears and chondromalacia of the medial and lateral femoral condyles Procedure & Operative Findings Date of Procedure 05/28/19 Procedure Performed/Findings right knee arthroscopic partial medial and lateral meniscectomies and chondroplasty of the medial and lateral femoral condyles Anesthesia Type GETA Estimated Blood Loss Estimated blood loss (mL): minimal Specimens/Packing Specimens Removed none Packing: none BINA DOTSON MD May 28, 2019 07:25 POS
[2019-05-28] MEDS ORDERED: FAMOTIDINE 20MG/2ML IV (PEPCID) IV ONE (07:30)
[2019-05-28] MEDS ORDERED: HYDROcodone/APAP 7.5 MG/325 MG (LORTAB, LORCET PLUS) TABLET PO PRN (07:30)
[2019-05-28] MEDS ORDERED: BUPIVACAINE 0.25% 30 ML (SENSORCAINE) VIAL ONE (07:31)
[2019-05-28] MEDS ORDERED: morphine PF (DURAMORPH) 10 MG/10 ML AMP ONE (07:31)
[2019-05-28] MEDS ORDERED: SEVOFLURANE (ULTANE) 15 ML INHAL SOLN ONE (07:56)
[2019-05-28] MEDS ORDERED: proPOfol 200 MG/20 ML (DIPRIVAN) VIAL IV ONE (07:56)
[2019-05-28] MEDS ORDERED: LIDOCAINE PF 2% 5 ML (XYLOCAINE) VIAL ONE (07:56)
[2019-05-28] MEDS ORDERED: ONDANSETRON 4 MG/2 ML (SDV) Z0FRAN ONE (08:02)
[2019-05-28] MEDS ORDERED: DEXAMETHASONE 10 MG/ML (DECADRON) 1 ML VIAL ONE (08:02)
[2019-05-28] MEDS ORDERED: HYDR-3857 PO (08:13)
[2019-05-28] MEDS ORDERED: ONDANSETRON 4 MG/2 ML (SDV) Z0FRAN IVP PRN (08:15)
[2019-05-28] MEDS ORDERED: morphine INJ 10 MG/ML 1ML (SYR OR VIAL) IVP ONE (08:15)
[2019-05-28] MEDS ORDERED: morphine INJ 10 MG/ML 1ML (SYR OR VIAL) ONE (08:20)
--- NOTE | 2019-05-28 09:03 | Anesthesia-General Post-Op ---
General Patient Condition Mental Status/LOC: Same as Preop Cardiovascular: Satisfactory Nausea/Vomiting: Absent Respiratory: Satisfactory Pain: Controlled Complications: Absent Post Op Complications Complications None Follow Up Care/Instructions Patient Instructions None needed. Anesthesia/Patient Condition Patient Condition Patient is doing well, no complaints, stable vital signs, no apparent adverse anesthesia problems. No complications reported per nursing. GABY RUBY CRNA May 28, 2019 09:03 POS
--- NOTE | 2019-05-28 09:59 | Physical Therapy Ortho Eval ---
PT Orthopedic Evaluation Type of Surgery Knee Scope right side Prior Level of Function Current Living Status: Spouse Locomotion (Upon Admit): Front Wheeled Walker (4 wheeled walker) Subjective Subjective Patient sitting EOB pre tx, she was able to sit to the edge of the bed without assist. Patient has 5/10 pain in right knee. Entry Into Home: Level Entry ROM right knee +5/80 Strength post polio right LE Transfer Transfers (B, C, W/C) (FIM): 6 Gait Gait Assistive Device: Walker 4 Wheeled Gait (FIM): 6 Distance: 150' Summary/Comments Patient ambulated 150' with a 4 wheeled walker with mod I, no LOB or unsteadiness, no knee buckling. Patient did not do a step because she has a level entry into her home. 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
--- NOTE | 2019-05-28 12:44 | OPERATIVE REPORT ---
DATE OF SERVICE: 05/28/2019 PREOPERATIVE DIAGNOSES: 1. Right knee medial meniscus tear. 2. Right knee chondromalacia of the medial femoral condyle. 3. Right knee lateral meniscus tear. 4. Right knee chondromalacia of the patella. POSTOPERATIVE DIAGNOSES: 1. Right knee medial meniscus tear. 2. Right knee chondromalacia of the medial femoral condyle. 3. Right knee lateral meniscus tear. 4. Right knee chondromalacia of the lateral femoral condyle. PROCEDURES: 1. Right knee arthroscopic partial medial meniscectomy. 2. Right knee arthroscopic chondroplasty of the medial femoral condyle. 3. Right knee arthroscopic partial lateral meniscectomy. 4. Right knee arthroscopic chondroplasty of the lateral femoral condyle. SURGEON: Luis Fernando Dotson MD TRAVEL COUNSELOR [employer]: Jairo Hanna, who assisted throughout the procedure and closed the incisions. ANESTHESIA: General endotracheal by Eli Fernandez CRNA. TOURNIQUET TIME: Not applicable. ESTIMATED BLOOD LOSS: Minimal. DRAINS: None. COMPLICATIONS: None. POSTOPERATIVE PLAN: Routine arthroscopy protocol. The patient was transferred to recovery room awake and in stable condition. STATEMENT OF MEDICAL NECESSITY: The patient is a 73-year-old female with longstanding progressive right knee arthritis. She has undergone treatment with injections and anti-inflammatories. She was felt to be a very poor candidate for total knee arthroplasty as she had had polio as a youngster and had no extension of the right knee. Subsequent to this, she understood that an arthroscopy could help with her mechanical symptoms, but would not help with her arthritic symptoms. Examination under anesthesia revealed range of motion 0/0/130 with negative Jeff, negative anterior and posterior drawer. No varus valgus laxity, negative pivot shift. Arthroscopic findings, the patella and trochlea demonstrated diffuse grade IV chondral loss centrally in a 20 x 20 area. The medial and lateral gutters were clear. The ACL and PCL were intact. The medial compartment demonstrated a horizontal cleavage tear of the posterior horn involving approximately 1/3 of the posterior horn. In addition, there was grade IV chondral loss throughout the medial compartment with unstable grade III chondral flaps at the periphery in a 20 x 20 area. The lateral compartment demonstrated a grade II chondral flap centrally in a 10 x 10 area of the femoral condyle and a tear of the posterior horn/body junction of the meniscus involving approximately 1/3rd of the posterior horn body junction. PROCEDURE: After risks and benefits of procedure were discussed and questions were answered, informed consent was signed and placed on chart, the operative site was confirmed in the preoperative holding area initialed by the surgeon. The patient was transferred to the operating room after adequate levels of general endotracheal anesthetic were obtained, a timeout was called, confirming the operative site. The right lower extremity was prepped and draped in the usual sterile fashion. The knee joint was injected with 60 mL of fluid and standard inferolateral portal was placed with the arthroscope under direct visualization, inferior medial portal was created. The menisci and cruciates carefully probed with the above findings noted. Then, stable chondral flaps on the medial femoral condyle were debrided with shaver back to a stable edge. Posterior horn of the medial meniscus was debrided with a biter back to a stable edge. This was carefully probed with no further tearing or instability noted. The scope was redirected into the lateral compartment, unstable chondral flaps of the lateral femoral condyle were debrided with shaver back to a stable edge. The lateral meniscus tear was debrided with shaver back to a stable edge as well. This was carefully probed with no further tearing or instability noted. The knee was copiously irrigated. Portal sites were closed with 4-0 nylon in subcuticular fashion. Knee was injected with Duramorph. Portal sites were infiltrated with plain Marcaine. A soft dressing was applied and the patient was transported to the recovery room awake and in stable condition. Job ID: [id number] DocumentID: [id number] Dictated Date: 05/28/2019 08:12:39 Outreach Worker Date: 05/28/2019 12:43:37 Dictated By: LUIS FERNANDO DOTSON MD
== END 2019-05-28 09:48 | disposition home or self-care (01) ==
LOC: SDC 06:05
PROVIDERS: ATTEND Orthopaedic Surgery
DX: S83.281A Other tear of lateral meniscus, current injury, right knee, initial encounter (principal); S83.241A Other tear of medial meniscus, current injury, right knee, initial encounter; M94.261 Chondromalacia, right knee; M17.11 Unilateral primary osteoarthritis, right knee; I48.91 Unspecified atrial fibrillation; K21.9 Gastro-esophageal reflux disease without esophagitis; E03.9 Hypothyroidism, unspecified; E66.01 Morbid (severe) obesity due to excess calories; Z68.42 Body mass index [BMI] 45.0-49.9, adult; Z86.12 Personal history of poliomyelitis; Z90.49 Acquired absence of other specified parts of digestive tract; Z85.3 Personal history of malignant neoplasm of breast; Z79.01 Long term (current) use of anticoagulants; Z79.899 Other long term (current) drug therapy; Z87.891 Personal history of nicotine dependence; Z88.1 Allergy status to other antibiotic agents; Z88.8 Allergy status to other drugs, medicaments and biological substances

== ENCOUNTER → 2019-09-08 | Outpatient (CLI) | payer BC, MEDICARE ==
[~2019-09-08] MED LIST changes: +HYDR-3857 PO; -METO-370 PO; -METO-387 PO; +METO50TA7 PO; +MTP25TSR PO
== END ==
LOC: CARD 09:59
PROVIDERS: ATTEND Nurse Practitioner Family
DX: I08.3 Combined rheumatic disorders of mitral, aortic and tricuspid valves (principal); I11.9 Hypertensive heart disease without heart failure; I48.91 Unspecified atrial fibrillation
CPT/HCPCS: 93306

== ENCOUNTER 2020-06-30 05:52 | Outpatient (RCR) | payer MEDICARE ==
[~2020-06-30] VITALS: Ht 165 cm; Wt 106.8 kg
[~2020-06-30 05:52] MED LIST changes: +ASCO100024 PO; -ASCO10006 PO; -PANT40TA3 PO; +PANT40TA52 PO
== END 2020-06-30 10:08 | disposition home or self-care (01) ==
LOC: PREOP 05:52
PROVIDERS: ATTEND Specialist
DX: Z01.812 Encounter for preprocedural laboratory examination (principal); H25.9 Unspecified age-related cataract; Z20.828 Contact with and (suspected) exposure to other viral communicable diseases
CPT/HCPCS: 87635

== ENCOUNTER → 2020-07-02 | Day surgery (SDC) | payer BC, MEDICARE ==
[~2020-07-02] VITALS: Ht 165 cm; Wt 106.0 kg
[~2020-07-02] MED LIST changes: +LIDOCAINE PF 1% 2 ML VIAL IR PRN; +MIDAZOLAM 2 MG/2 ML (VERSED) VIAL ONE; +MOXIFLOXACIN OPHTH SOLN 5 MG/ML 0.3 ML SYRINGE OP ONE; +POVIDONE (BETADINE) OPHTH SOLN 5% 30 ML OP ONE; +TIMOLOL MALEATE 0.5% 5 ML (TIMOPTIC) BTL OU PRN; +acetaZOLAMIDE ER 500 MG CAP (DIAMOX SEQUELS) PO ONE
[2020-07-02 08:00] VITALS: BP 139/78
[2020-07-02] MEDS: TETRACAINE 0.5% OPHTH SOLN 4 ML BTL (SINGLE DOSE ONLY) OU PRN ×4 (08:22→08:38)
[2020-07-02] MEDS: TROPICAMIDE 1% OPH SOLN (MYDRIACYL) 15 ML BTL OP SCH ×3 (08:28→08:38)
[2020-07-02] MEDS: PHENYLEPHRINE 10% OPHTH (NEO-SYN) 5 ML BTL OU SCH ×3 (08:28→08:38)
--- NOTE | 2020-07-02 08:34 | Ophthalmologist Pre-Op Note ---
Pre-Operative Progress Note H&P Reviewed The H&P was reviewed, patient examined and no changes noted. Date H&P Reviewed: Jul 02, 2020 Time H&P Reviewed: 08:33 Pre-Op Dx Cataract, Left Eye SHARON WEEMS MD Jul 02, 2020 08:34
--- NOTE | 2020-07-02 09:11 | Ophthalmology Operative Report ---
Cataract removal/placement IOL PREOPERATIVE DIAGNOSIS: Cataract Left Eye POSTOPERATIVE DIAGNOSIS: Cataract Left Eye PROCEDURE: Cataract removal and placement of posterior chamber implant, left eye SURGEON: Geovani Weems ANESTHESIA: Topical with sedation COMPLICATIONS: None ESTIMATED BLOOD LOSS: Minimal DESCRIPTION OF PROCEDURE: After proper informed consent was obtained, the patient, a 74 female, was taken to the Operating Room and the left eye was anesthetized with tetracaine. The left eye was then prepped and draped in the usual manner. A wire lid speculum was placed. A paracentesis was made at the left hand position. Preservative free lidocaine was injected into the anterior chamber followed by viscoelastic. A clear corneal incision was made in the temporal position. A capsulorrhexis was preformed and the central nuclear and cortical material were removed. The posterior capsule was polished and an Nakul 20.5 [id number] was placed into the capsular bag. The residual viscoelastic was aspirated and balanced saline solution was injected into the anterior chamber. Moxifloxacin was injected into the anterior chamber. The wound was checked and found to be water tight. The patient tolerated the procedure well without complications. GEOVANI WEEMS MD Jul 02, 2020 09:11
[2020-07-02 09:20] VITALS: BP 137/73
--- NOTE | 2020-07-02 11:06 | Anesthesia-General Post-Op ---
MAC Patient Condition Mental Status/LOC: Same as Preop Cardiovascular: Satisfactory Nausea/Vomiting: Absent Respiratory: Satisfactory Pain: Controlled Complications: Absent Post Op Complications Complications None Follow Up Care/Instructions Patient Instructions None needed. Anesthesiology Discharge Order Discharge Order Patient is doing well, no complaints, stable vital signs, no apparent adverse anesthesia problems. No complications reported per nursing. ARASH KING CRNA Jul 02, 2020 11:06
== END ==
LOC: SDC 07:54
PROVIDERS: ATTEND Specialist
DX: H25.12 Age-related nuclear cataract, left eye (principal); I48.91 Unspecified atrial fibrillation; E03.9 Hypothyroidism, unspecified; E66.01 Morbid (severe) obesity due to excess calories; Z68.38 Body mass index [BMI] 38.0-38.9, adult; Z79.899 Other long term (current) drug therapy; Z88.1 Allergy status to other antibiotic agents; Z87.891 Personal history of nicotine dependence; Z85.3 Personal history of malignant neoplasm of breast
CPT/HCPCS: 66984; V2632

== ENCOUNTER 2020-07-07 05:37 | Outpatient (RCR) | payer MEDICARE ==
[~2020-07-07 05:37] MED LIST changes: -LIDOCAINE PF 1% 2 ML VIAL IR PRN; -MIDAZOLAM 2 MG/2 ML (VERSED) VIAL ONE; -MOXIFLOXACIN OPHTH SOLN 5 MG/ML 0.3 ML SYRINGE OP ONE; -POVIDONE (BETADINE) OPHTH SOLN 5% 30 ML OP ONE; -TIMOLOL MALEATE 0.5% 5 ML (TIMOPTIC) BTL OU PRN; -acetaZOLAMIDE ER 500 MG CAP (DIAMOX SEQUELS) PO ONE
== END 2020-07-07 11:33 | disposition home or self-care (01) ==
LOC: PREOP 05:37
PROVIDERS: ATTEND Specialist
DX: Z01.812 Encounter for preprocedural laboratory examination (principal); H26.9 Unspecified cataract; Z20.828 Contact with and (suspected) exposure to other viral communicable diseases
CPT/HCPCS: 87635

== ENCOUNTER → 2020-09-24 | Outpatient (CLI) | payer MEDICARE ==
--- NOTE | 2020-09-24 14:55 | Diagnostic Imaging Report ---
INDICATION: Routine screening. Comparison is made with prior mammogram 05/21/2019 and 04/02/2018. 2-D and 3-D bilateral screening mammography was performed with CAD. Both breasts remain heterogeneously dense, limiting the sensitivity of mammography. Post therapeutic changes in the right breast are again noted. There are benign parenchymal and vascular calcifications bilaterally. Biopsy clip left breast is noted. Axillae are unremarkable. IMPRESSION: BI-RADS Category 2 No mammographic features suspicious for malignancy are identified. ACR BI-RADS Category 2: Benign findings. Result letter will be mailed to the patient. Note: At least 10% of breast cancer is not imaged by mammography. Dictated by: Dictated on workstation # [id number]
== END ==
LOC: RAD 10:20
PROVIDERS: ATTEND Nurse Practitioner Family
DX: Z12.31 Encounter for screening mammogram for malignant neoplasm of breast (principal)
CPT/HCPCS: 77063; 77067

== ENCOUNTER → 2020-10-06 | Outpatient (CLI) | payer MEDICARE ==
--- NOTE | 2020-10-06 12:42 | Diagnostic Imaging Report ---
EXAMINATION: Magnetic resonance imaging of the right knee without intravenous contrast DATE: October 06, 2020. COMPARISON: MRI right knee January 16, 2019. INDICATION: 75-year-old female, chronic right knee pain. TECHNIQUE: Multiplanar, multisequence non contrast enhanced MR imaging was accomplished. FINDINGS: There are limitations of the exam relating to patient body habitus and low duplyf-iv-ockoa ratio. MENISCI: The menisci are very difficult to evaluate given the limitations of the study. There is 5 mm medial meniscal extrusion. There is increased signal in the posterior horn of the medial meniscus on the sagittal PD fat saturation sequence not definitely contacting an articular surface. There appears to be at least mild volume loss of the anterior horn and body of the medial meniscus. There appears to be at least mild to moderate volume loss of the lateral meniscus. The lateral meniscus is very poorly evaluated on this study. LIGAMENTS AND TENDONS: The anterior cruciate ligament is difficult to evaluate although it is without definite tear. The posterior cruciate ligament is intact. The medial collateral ligament is intact. The iliotibial band, mid third lateral capsular ligament, fibular collateral ligament, biceps femoris tendon and conjoined tendon are intact. The distal quadriceps tendon is without identified tear. The patella is inferiorly positioned. There is laxity of the patellar tendon without identified tear of the patellar tendon. JOINT: There is likely severe patellofemoral compartment cartilage loss although the cartilage is difficult to directly evaluate. There are broad areas of full-thickness cartilage loss of the mid weightbearing portion of the medial femoral condyle and adjacent medial tibial plateau. There are lateral compartment osteophytes. There is no large knee joint effusion, prominent synovitis, or identified intra-articular body. BONE: There is degenerative related marrow edema adjacent to the medial compartment. There is no acute fracture, bone contusion, or evidence of osteonecrosis. BURSAE AND SOFT TISSUES: There is a small amount of fluid in the popliteal fossa without sizable Rodriguez's cyst. There is mild nonspecific subcutaneous edema at the level of the proximal tibia and fibula. IMPRESSION: 1. Very technically limited exam relating to patient body habitus and low crcjwj-jk-xzgxu ratio. 2. 5 mm medial meniscal extrusion which does raise question of a posterior root attachment or radially oriented tear of the medial meniscus although this is difficult to definitively identify. The medial meniscal extrusion is an interval change since January 16, 2019. 3. Suspected mild to moderate volume loss of the lateral meniscus with very limited evaluation of the lateral meniscus. 4. Limited evaluation of the anterior cruciate ligament. No definite complete tear of the anterior cruciate ligament. The posterior cruciate ligament is intact. 5. The patella is abnormally inferiorly positioned and there is laxity of the patellar tendon. There is no discretely identified tear of the distal quadriceps tendon or patellar tendon. 6. Severe patellofemoral and medial compartment osteoarthritis. No large knee joint effusion. 7. No acute fracture, bone contusion, or evidence of osteonecrosis. Dictated by: Dictated on workstation # [id number]
== END ==
LOC: RAD 10:15
PROVIDERS: ATTEND Nurse Practitioner Family
DX: M17.11 Unilateral primary osteoarthritis, right knee (principal)
CPT/HCPCS: 73721

== ENCOUNTER 2022-01-16 08:27 | Inpatient (IN) | payer MEDICARE ==
[~2022-01-16] VITALS: Ht 165.1 cm; Wt 114.5 kg
[~2022-01-16 08:27] MED LIST changes: -HYDR-3857 PO; +HYDR-4506 PO
--- NOTE | 2022-01-16 08:58 | ED Integumentary General ---
General Stated Complaint: SORE RIGHT ANKLE Source: patient Exam Limitations: no limitations History of Present Illness Date Seen by Provider: Jan 16, 2022 Time Seen by Provider: 08:48 Initial Comments Gracia is a 76-year-old female who presents to the emergency department today with a chief complaint of redness, swelling and discomfort to her right lower le g. She recently had a cat scratch to the right leg. Patient states onset of symptoms fairly quickly over the last 24 to 36 hours. She states about 2 weeks ago she had a little bit of redness to her leg and was on antibiotics. She had seen her primary care doctor for a rash to the right leg and they advised her to keep taking her antibiotics with the cat scratch. She denies fevers or chills. She has had some swelling and drainage. She arrives with the leg bandaged. Patient states over the last 24 hours she has had significant increased pain and redness, lots of swelling. No diarrhea, no reported fever. No burning with urination. She is not a diabetic. All other review of systems reviewed and negative except as stated. Timing/Duration: other (last night) Location: extremities (Right lower leg) Possible Cause: other Associated Symptoms: rash Allergies and Home Medications Allergies Coded Allergies: tetracycline (Unverified Allergy, Mild, HEADACHE, 06/29/20) cefdinir (Unverified Adverse Reaction, Intermediate, DIARRHEA, 06/29/20) Patient Home Medication List Home Medication List Reviewed: Yes Amoxicillin/Potassium Clav (Amox Tr-K Clv 875-125 mg Tab) 875 Mg-125 Mg Tablet, 1 EACH PO BID Prescribed by: LORE DAMICO on 01/18/22 1153 Apixaban (Eliquis) 5 Mg Tablet, 5 MG PO BID, (Reported) Entered as Reported by: RAYMOND BUI on 06/01/16 0832 Last Action: Continued Ascorbic Acid (C-1000 with Mercy Hips) 1,000 Mg Tablet, 1,000 MG PO DAILY, (Reported) Entered as Reported by: HIMA JEFFERSON on 01/16/22 1457 Last Action: Held Calcium Citrate/Vitamin D3 (Calcium Citrate - Vit D Tablet) 1 Each Tablet, 1 TAB PO DAILY, (Reported) Entered as Reported by: YOAN RIVER on 03/23/16 1615 Last Action: Held Diltiazem HCl (Diltiazem 24Hr ER) 240 Mg Cap.er.24h, 240 MG PO Q12H, (Reported) Entered as Reported by: HIMA JEFFERSON on 01/16/22 145 Last Action: Continued Hydrocodone/Acetaminophen (Hydrocodone-Acetamin 10-325 mg) 10 Mg-325 Mg Tablet, 1 EA PO BID PRN for PAIN-MODERATE (5-7), (Reported) Entered as Reported by: HIMA JEFFERSON on 01/16/22 145 Last Action: Reviewed Levothyroxine Sodium (Synthroid) 200 Mcg Tablet, 200 MCG PO DAILY, (Reported) Entered as Reported by: NILES SEAMAN on 09/14/1531 Last Action: Converted Levothyroxine Sodium (Synthroid) 25 Mcg Tablet, 12.5 MCG PO DAILY, (Reported) Entered as Reported by: NILES SEAMAN on 09/14/1531 Last Action: Continued Magnesium Oxide (Magnesium) 250 Mg Tablet, 250 MG PO DAILY, (Reported) Entered as Reported by: YOAN RIVER on 04/13/16 1317 Last Action: Held Metoprolol Succinate (Metoprolol Succinate) 50 Mg Tab.er.24h, 50 MG PO DAILY, (Reported) Entered as Reported by: SERAFIN ALCARAZ on 05/02/16 0950 Last Action: Continued Metoprolol Succinate (Metoprolol Succinate) 25 Mg Tab.er.24h, 25 MG PO 1700, (Reported) Entered as Reported by: YOAN RIVER on 12/11/17 1352 Last Action: Continued Pantoprazole Sodium (Pantoprazole Sodium) 40 Mg Tablet.dr, 40 MG PO DAILY, (Reported) Entered as Reported by: NILES SEAMAN on 09/14/1531 Last Action: Continued Vitamin B Complex (B Complex) 1 Each Tablet, 1 TAB PO DAILY, (Reported) Entered as Reported by: YOAN RIVER on 03/23/16 1617 Last Action: Held Discontinued Medications Diltiazem HCl (Cartia Xt) 240 Mg Cap.er.24h, 240 MG PO BID, (Reported) Discontinued Reason: Duplicate Order Entered as Reported by: YOAN RIVER on 12/11/17 1352 Last Action: Discontinued Hydrocodone/Acetaminophen (Hydrocodon-Acetaminoph 2.5-325) 1 Each Tablet, 1 TAB PO Q4-6HR PRN for PAIN-MODERATE Discontinued Reason: Duplicate Order Prescribed by: KING CRUZ on 05/28/19 0813 Last Action: Discontinued Review of Systems Review of Systems Constitutional: see HPI EENTM: no symptoms reported Respiratory: no symptoms reported Gastrointestinal: no symptoms reported Genitourinary: no symptoms reported Musculoskeletal: other (Right leg pain) Skin: rash All Other Systems Reviewed Negative Unless Noted: Yes Past Jpgmogq-Smniwe-Ezunnq Hx Immunizations Up To Date Tetanus Booster (TDap): Less than 5yrs PED Vaccines UTD: Yes Seasonal Allergies Seasonal Allergies: Yes (took allergy shots for 5 years) Past Medical History Surgeries: Yes (ANKLE X2,UMBIL HERNIA, ROTATOR CUFF, R BREAST LUMPECTOMY) Breast, Gallbladder, Orthopedic Respiratory: No Currently Using CPAP: No Currently Using BIPAP: No Cardiac: Yes Atrial Fibrillation Neurological: No (POLIO) Reproductive Disorders: No Female Reproductive Disorders: Denies Sexually Transmitted Disease: No HIV/AIDS: No Genitourinary: No Gastrointestinal: Yes Gastroesophageal Reflux Musculoskeletal: Yes (ARTHRITIS, RECENT FEMUR FRACTURE) Arthritis Endocrine: Yes Hypothyroidsim HEENT: Yes (GLASSES) Hearing Impairment: Hard of Hearing, Bilateral Hearing Aide Cancer: Yes (lumpectomy in 2011 and radiation 28 days) Breast Did You Recieve Any Treatments: Yes What Type of Treatment Did You: Radiation, Surgical Intervention Psychosocial: No Integumentary: No (DRY SKIN ON ANKLE) Blood Disorders: No Adverse Reaction/Blood Tranf: No (N/A) Family Medical History Cardiovascular disease 19 MOTHER, Onset:79 ( at 79) G8 SISTER, Onset:75 (alive) Completed stroke 19 FATHER, Onset:77 ( at 77 with stroke) Gastroenteritis G8 SISTER, Onset:64 (alive) No Pertinent Family Hx Physical Exam Vital Signs Vital Signs - First Documented 01/16/22 08:41 Temp 36.3 Pulse 98 Resp 16 B/P (MAP) 130/77 (94) Pulse Ox 98 O2 Delivery Room Air Capillary Refill : General Appearance: WD/WN HEENT: PERRL/EOMI, normal ENT inspection Neck: full range of motion Cardiovascular: irregularly irregular (91-110) Respiratory: lungs clear, normal breath sounds, no respiratory distress, no accessory muscle use Gastrointestinal: normal bowel sounds, non tender, soft Extremities: normal range of motion, swelling (RLE with bright red erythema and superficial shallow ulcers medial lower aspect - draining serous fluid; very TTP) Neurologic/Psychiatric: alert, normal mood/affect, oriented x 3, other (tearful with prospect of admission) Skin: other (as above) Procedures/Interventions Suture Size: 4-0 Progress/Results/Core Measures Results/Orders Lab Results Laboratory Tests Test 01/16/22 08:55 01/16/22 09:14 Range/Units White Blood Count 18.5 H 4.3-11.0 10^3/uL Red Blood Count 4.97 3.80-5.11 10^6/uL Hemoglobin 14.7 11.5-16.0 g/dL Hematocrit 46 35-52 % Mean Corpuscular Volume 93 80-99 fL Mean Corpuscular Hemoglobin 30 25-34 pg Mean Corpuscular Hemoglobin Concent 32 32-36 g/dL Red Cell Distribution Width 14.2 10.0-14.5 % Platelet Count 424 H 130-400 10^3/uL Mean Platelet Volume 9.9 9.0-12.2 fL Immature Granulocyte % (Auto) 0 % Neutrophils (%) (Auto) 92 H 42-75 % Lymphocytes (%) (Auto) 4 L 12-44 % Monocytes (%) (Auto) 3 0-12 % Eosinophils (%) (Auto) 0 0-10 % Basophils (%) (Auto) 0 0-10 % Neutrophils # (Auto) 17.0 H 1.8-7.8 10^3/uL Lymphocytes # (Auto) 0.8 L 1.0-4.0 10^3/uL Monocytes # (Auto) 0.6 0.0-1.0 10^3/uL Eosinophils # (Auto) 0.0 0.0-0.3 10^3/uL Basophils # (Auto) 0.1 0.0-0.1 10^3/uL Immature Granulocyte # (Auto) 0.1 0.0-0.1 10^3/uL Neutrophils % (Manual) 90 % Lymphocytes % (Manual) 6 % Monocytes % (Manual) 4 % Eosinophils % (Manual) 0 % Basophils % (Manual) 0 % Band Neutrophils 0 % Blood Morphology Comment NORMAL Erythrocyte Sedimentation Rate 7 0-30 MM/HR Prothrombin Time 17.5 H 12.2-14.7 SEC INR Comment 1.4 0.8-1.4 Activated Partial Thromboplast Time 30 24-35 SEC Sodium Level 138 135-145 MMOL/L Potassium Level 4.1 3.6-5.0 MMOL/L Chloride Level 100 98-107 MMOL/L Carbon Dioxide Level 24 21-32 MMOL/L Anion Gap 14 5-14 MMOL/L Blood Urea Nitrogen 7 7-18 MG/DL Creatinine 0.72 0.60-1.30 MG/DL Estimat Glomerular Filtration Rate 88 BUN/Creatinine Ratio 10 Glucose Level 137 H 70-105 MG/DL Calcium Level 9.7 8.5-10.1 MG/DL Corrected Calcium 9.7 8.5-10.1 MG/DL Total Bilirubin 0.9 0.1-1.0 MG/DL Aspartate Amino Transf (AST/SGOT) 21 5-34 U/L Alanine Aminotransferase (ALT/SGPT) 20 0-55 U/L Alkaline Phosphatase 72 40-136 U/L C-Reactive Protein High Sensitivity 0.39 0.00-0.50 MG/DL Total Protein 8.0 6.4-8.2 GM/DL Albumin 4.0 3.2-4.5 GM/DL Lactic Acid Level 2.56 *H 0.50-2.00 MMOL/L Micro Results Microbiology 01/16/22 Blood Culture - Preliminary, Resulted No growth 01/16/22 Blood Culture - Preliminary, Resulted No growth 01/16/22 Gram Stain - Final, Resulted 01/16/22 Wound Culture - Preliminary, Resulted Enterococcus faecalis Mixed Bacterial Alyssa Testing In Progress My Orders Orders - NICOLE GODOY MD Cbc With Automated Diff (01/16/22 08:58) Comprehensive Metabolic Panel (01/16/22 08:58) Blood Culture (01/16/22 08:58) Urinalysis (01/16/22 08:58) Urine Culture (01/16/22 08:58) Protime With Inr (01/16/22 08:58) Partial Thromboplastin Time (01/16/22 08:58) Chest 1 View, Ap/Pa Only (01/16/22 08:58) Ed Iv/Invasive Line Start (01/16/22 08:58) Ed Iv/Invasive Line Start (01/16/22 08:58) Vital Signs Adult Sepsis Patie Q15M (01/16/22 08:58) O2 (01/16/22 08:58) Remove Rings In Anticipation O (01/16/22 08:58) Wound Culture (01/16/22 08:58) Lactic Acid Analyzer (01/16/22 08:58) Manual Differential (01/16/22 08:55) Piperacillin Sodium/Tazobactam (Zosyn Vi (01/16/22 09:45) Vital Signs/I&O 01/16/22 08:41 Temp 36.3 Pulse 98 Resp 16 B/P (MAP) 130/77 (94) Pulse Ox 98 O2 Delivery Room Air Departure Communication (Admissions) Time/Spoke to Admitting Phy: 10:[address] Damico Impression Primary Impression: Sepsis Qualified Codes: A41.9 - Sepsis, unspecified organism Additional Impression: Cellulitis of right lower extremity Disposition: ADMITTED INPATIENT Condition: Stable Admissions Decision to Admit Reason: Admit from ER (General) Decision to Admit/Date: Jan 16, 2022 Time/Decision to Admit Time: 10:57 Departure-Patient Inst. Referrals: LONNIE MCDONALD MD (PCP) Primary Care Physician KWNA MCNEIL APRN (Family) Primary Care Physician Scripts Amoxicillin/Potassium Clav (Amox Tr-K Clv 875-125 mg Tab) 875 Mg-125 Mg Tablet 1 EACH PO BID for 10 Days, #20 TAB Prov: LORE DAMICO MD 01/18/22 NICOLE GODOY MD Jan 16, 2022 08:58
[2022-01-16 09:08] LABS: BASOPHILS # (AUTO) 0.1 10^3/uL (0.0-0.1); BASOPHILS % (AUTO) 0 % (0-10); EOSINOPHILS % (AUTO) 0 % (0-10); HEMATOCRIT 46 % (35-52); HEMOGLOBIN 14.7 g/dL (11.5-16.0); LYMPHOCYTES # (AUTO) 0.8 10^3/uL (1.0-4.0); LYMPHOCYTES % (AUTO) 4 % (12-44); MEAN CORPUSCULAR HEMOGLOBIN 30 pg (25-34); MEAN CORPUSCULAR HGB CONC 32 g/dL (32-36); MEAN CORPUSCULAR VOLUME 93 fL (80-99); MEAN PLATELET VOLUME 9.9 fL (9.0-12.2); MONOCYTES # (AUTO) 0.6 10^3/uL (0.0-1.0); MONOCYTES % (AUTO) 3 % (0-12); NEUTROPHILS % (AUTO) 92 % (42-75); PLATELET COUNT 424 10^3/uL (130-400); WHITE BLOOD COUNT 18.5 10^3/uL (4.3-11.0)
[2022-01-16 09:14] LABS: CALCIUM 9.7 MG/DL (8.5-10.1); INR 1.4 (0.8-1.4); POTASSIUM 4.1 MMOL/L (3.6-5.0); PROTHROMBIN TIME PATIENT 17.5 SEC (12.2-14.7)
[2022-01-16 09:17] LABS: BILIRUBIN,TOTAL 0.9 MG/DL (0.1-1.0)
[2022-01-16 09:19] LABS: CREATININE SERUM 0.72 MG/DL (0.60-1.30)
[2022-01-16 09:35] LABS: BAND NEUTROPHILS 0 %; BASOPHILS % (MANUAL) 0 %; EOSINOPHILS % (MANUAL) 0 %; LYMPHOCYTES % (MANUAL) 6 %; MONOCYTES % (MANUAL) 4 %; NEUTROPHILS % (MANUAL) 90 %; RBC MORPH NORMAL
[2022-01-16] MEDS ORDERED: PIPERACILLIN SODIUM/TAZOBACTAM 4.5 GM in NS (IVPB) 100 ML IV ONE (09:45)
--- NOTE | 2022-01-16 09:52 | Diagnostic Imaging Report ---
INDICATION: Sepsis. COMPARISON: 06/01/2016. FINDINGS: The heart is enlarged and may have increased in the interim; however, the mediastinal evaluation is challenged by a substantial degree of leftward rotation at today's study. No overt vascular congestion or ezra pulmonary edema. No focal pneumonia. IMPRESSION: Limited by leftward rotation. Equivocal findings for increased heart size but no uncompensated failure, pneumonia, edema, or acute pleural pathology. Dictated by: Dictated on workstation # [id number]
[2022-01-16] MEDS ORDERED: HYDROcodone/APAP 5 MG/325 MG (LORTAB) TAB PO ONE (11:00)
[2022-01-16] MEDS ORDERED: HYDROcodone/APAP 5 MG/325 MG (LORTAB) TAB PO PRN (12:26)
[2022-01-16 12:42] VITALS: BP 142/77
[2022-01-16] MEDS: NS IV 1000 ML 1,000 ML IV SCH ×2 (12:54→22:10)
[2022-01-16 12:56] VITALS: BP 130/77
[2022-01-16] MEDS ORDERED: RT-ALBUTEROL SULF 2.5 MG/3 ML PRE-MIX VIAL INH PRN (14:00)
[2022-01-16 14:09] LABS: BILIRUBIN,URINE NEGATIVE (NEGATIVE); CLARITY,URINE CLEAR; COLOR,URINE DARK YELLOW; GLUCOSE, URINE (UA) NEGATIVE (NEGATIVE); KETONES,URINE NEGATIVE (NEGATIVE); LEUKOCYTE ESTERASE ,URINE 1+ (NEGATIVE); NITRITE,URINE POSITIVE (NEGATIVE); PH,URINE 6.5 (5-9); PROTEIN,URINE TRACE (NEGATIVE)
[2022-01-16 14:27] LABS: BACTERIA,URINE FEW /HPF
[2022-01-16] MEDS ORDERED: [UNRECOGNIZED DRUG - CODE] PO (14:57)
[2022-01-16] MEDS ORDERED: DILT240C91 PO (14:57)
[2022-01-16] MEDS ORDERED: HYDR-3820 PO (14:57)
[2022-01-16 16:00] VITALS: BP 129/61
[2022-01-16] MEDS: PIPERACILLIN SODIUM/TAZOBACTAM 4.5 GM in NS (IVPB) 100 ML IV SCH ×2 (16:09→23:02)
[2022-01-16] MEDS ORDERED: ACETAMINOPHEN 325 MG TABLET PO PRN (18:15)
[2022-01-16] MEDS ORDERED: ANTACID SUSP 30 ML UDC (MYLANTA) PO PRN (18:15)
[2022-01-16] MEDS ORDERED: polyethylene glycoL POWDER 17 GM (MIRALAX) PACK PO PRN (18:15)
[2022-01-16] MEDS ORDERED: ONDANSETRON 4 MG (ZOFRAN) ORAL DISSOLVE TAB PO PRN (18:15)
[2022-01-16] MEDS ORDERED: ONDANSETRON 4 MG/2 ML (SDV) Z0FRAN IV PRN (18:15)
--- NOTE | 2022-01-16 18:16 | History & Physical-Hospitalist ---
History of Present Illness HPI/Chief Complaint Gracia Amaya is a 76 year old female with PMH HTN, AFib, GERD, hypothyroidism, morbid obesity, who presented with right leg pain. Her cat scratched her leg a couple weeks ago. She completed a course of antibiotics at that time but now her right leg is very red. She also has swelling and tenderness. The wounds are weeping. She denies fevers. She denies nausea and vomiting. She denies chest pain and shortness of breath. Source: patient Exam Limitations: no limitations Date Seen 01/16/22 Time Seen by a Provider: 13:00 Attending Physician Carlyn Aguilar MD PCP Admitting Physician: Erika Maldonado MD Attending Physician: Erika Maldonado MD Referring Physician Date of Admission Jan 16, 2022 at 10:51 Home Medications & Allergies Home Medications Reviewed patient Home Medication Reconciliation performed by pharmacy medication reconciliations civil engineering technician and/or nursing. Patients Allergies have been reviewed. Allergies Allergies Coded Allergies tetracycline (Unverified Allergy, Mild, HEADACHE, 06/29/20) cefdinir (Unverified Adverse Reaction, Intermediate, DIARRHEA, 06/29/20) Past Eeorbtw-Jtwjds-Mdwfok Hx Patient Social History Tobacco Use?: No Smoking Status: Former Smoker Use of E-Cig and/or Vaping dev: No Substance use?: No Alcohol Use?: Yes Alcohol type: Hard Liquor Additional alcohol type: bourbon and diet coke Alcohol Frequency: Daily Pt feels they are or have been: No Immunizations Up To Date Date of Influenza Vaccine: Apr 22, 2019 Tetanus Booster (TDap): Unknown Hepatitis A: No Hepatitis B: No PED Vaccines UTD: Yes Date of Pneumonia Vaccine: Apr 11, 2017 Seasonal Allergies Seasonal Allergies: Yes (took allergy shots for 5 years) Current Status Advance Directives: No Communicates: Verbally Primary Language: Croatian Preferred Spoken Language: Croatian Is interpretation needed?: No Sensory deficits: Hearing impairment Past Medical History Surgeries: Breast, Gallbladder, Orthopedic Currently Using CPAP: No Currently Using BIPAP: No Atrial Fibrillation, Hypertension Sexually Transmitted Disease: No HIV/AIDS: No Gastroesophageal Reflux Arthritis Hypothyroidsim Hearing Impairment: Hard of Hearing, Bilateral Hearing Aide Breast Did You Recieve Any Treatments: Yes What Type of Treatment Did You: Radiation, Surgical Intervention Blood Disorders: No Adverse Reaction/Blood Tranf: No (N/A) Family Medical History Cardiovascular disease 19 MOTHER, Onset:79 ( at 79) G8 SISTER, Onset:75 (alive) Completed stroke 19 FATHER, Onset:77 ( at 77 with stroke) Gastroenteritis G8 SISTER, Onset:64 (alive) Review of Systems Constitutional: no symptoms reported EENTM: no symptoms reported Respiratory: no symptoms reported Cardiovascular: no symptoms reported Gastrointestinal: no symptoms reported Genitourinary: no symptoms reported Musculoskeletal: no symptoms reported Skin: change in color Psychiatric/Neurological: No Symptoms Reported Physical Exam Physical Exam Vital Signs Vital Signs - First Documented 01/16/22 01/16/22 08:41 12:56 Temp 36.3 Pulse 98 Resp 16 B/P (MAP) 130/77 (94) Pulse Ox 98 O2 Delivery Room Air O2 Flow Rate 0.00 FiO2 21 Capillary Refill : Less Than 3 Seconds Height, Weight, BMI Height: 5'5.00" Weight: 245lbs. 0.0oz. [id number]; 42.00 BMI Method:Stated General Appearance: No Apparent Distress, Obese HEENT: PERRL/EOMI, Pharynx Normal Neck: Normal Inspection, Supple Respiratory: Lungs Clear, Normal Breath Sounds, No Respiratory Distress Cardiovascular: No Edema, No Murmur, Tachycardia Gastrointestinal: Normal Bowel Sounds, Non Tender, Soft Extremity: Inflammation, Pedal Edema, Swelling Neurologic/Psychiatric: Alert, Oriented x3, Normal Mood/Affect Skin: Erythema (swelling, tenderness of right lower extremity with weeping) Results Results/Procedures Labs Laboratory Tests 01/16/22 08:55 Patient resulted labs reviewed. Imaging: Reviewed Imaging Report Assessment/Plan Admission Diagnosis Severe sepsis due to cellulitis Admission Status: Inpatient Order (span 2 midnights) Reason for Inpatient Admission: IV antibiotics Assessment and Plan Severe sepsis Cellulitis Cat scratch Lactic acidosis SIRS+ with leukocytosis and tachycardia Lactic acid >2 IV fluids Zosyn HTN AFib GERD Hypothyroidism Morbid obesity Continue home meds Diagnosis/Problems Diagnosis/Problems (1) Severe sepsis Status: Acute (2) Cellulitis of right lower extremity Status: Acute (3) Lactic acidosis Status: Acute (4) Cat scratch Status: Acute (5) Atrial fibrillation Status: Acute (6) Morbid obesity Status: Chronic ERIKA MALDONADO MD Jan 16, 2022 18:16
[2022-01-16] MEDS: HYDROcodone/APAP 5 MG/325 MG (LORTAB) TAB PO PRN ×2 (18:43→23:00)
[2022-01-16] MEDS ORDERED: CATHETER FLUSH 10 ML SYR IVP PRN (18:45)
[2022-01-16] MEDS: APIXABAN 5 MG (ELIQUIS) TABLET PO SCH (19:54)
[2022-01-16 20:00] VITALS: BP 134/61
[2022-01-16] MEDS: MELATONIN 3 MG TABLET PO PRN (22:59)
[2022-01-16 23:02] VITALS: BP 134/60
[2022-01-17 04:30] VITALS: BP 118/58
[2022-01-17] MEDS: HYDROcodone/APAP 5 MG/325 MG (LORTAB) TAB PO PRN ×3 (05:21→22:19)
[2022-01-17] MEDS: LEVOTHYROXINE 100 MCG (LEVOTHROID) TAB PO SCH (05:22)
[2022-01-17] MEDS: LEVOTHYROXINE 25 MCG (LEVOTHROID) TAB PO SCH (05:22)
[2022-01-17] MEDS: POTASSIUM CL 10MEQ/50ML IVPB 50 ML IV SCH (06:00)
[2022-01-17] MEDS: KCL 20 MEQ TAB (K-DUR) PO SCH (06:00)
[2022-01-17] MEDS: MAGNESIUM 1 GM/100 ML IVPB 100 ML IV SCH (06:00)
[2022-01-17 06:19] LABS: BASOPHILS % (AUTO) 0 % (0-10); EOSINOPHILS % (AUTO) 0 % (0-10); HEMATOCRIT 37 % (35-52); HEMOGLOBIN 12.2 g/dL (11.5-16.0); LYMPHOCYTES % (AUTO) 7 % (12-44); MEAN CORPUSCULAR HEMOGLOBIN 30 pg (25-34); MEAN CORPUSCULAR HGB CONC 33 g/dL (32-36); MEAN CORPUSCULAR VOLUME 92 fL (80-99); MEAN PLATELET VOLUME 10.1 fL (9.0-12.2); MONOCYTES # (AUTO) 0.6 10^3/uL (0.0-1.0); MONOCYTES % (AUTO) 4 % (0-12); NEUTROPHILS # (AUTO) 12.6 10^3/uL (1.8-7.8); NEUTROPHILS % (AUTO) 88 % (42-75); PLATELET COUNT 339 10^3/uL (130-400); WHITE BLOOD COUNT 14.3 10^3/uL (4.3-11.0)
[2022-01-17 06:28] LABS: POTASSIUM 3.7 MMOL/L (3.6-5.0)
[2022-01-17 06:29] LABS: CALCIUM 8.6 MG/DL (8.5-10.1)
[2022-01-17 06:33] LABS: CREATININE SERUM 0.68 MG/DL (0.60-1.30)
[2022-01-17 07:47] VITALS: BP 132/59
[2022-01-17] MEDS: PANTOPRAZOLE 40 MG (PROTONIX) TAB PO SCH (08:29)
[2022-01-17] MEDS: meTOproloL SUCCINATE 50 MG (TOPROL XL) TAB PO SCH (08:29)
[2022-01-17] MEDS: PIPERACILLIN SODIUM/TAZOBACTAM 4.5 GM in NS (IVPB) 100 ML IV SCH ×3 (08:29→23:15)
[2022-01-17] MEDS: APIXABAN 5 MG (ELIQUIS) TABLET PO SCH ×2 (08:30→19:44)
[2022-01-17] MEDS: NS IV 1000 ML 1,000 ML IV SCH ×3 (08:31→22:19)
--- NOTE | 2022-01-17 11:35 | Physical Therapy Evaluation ---
PT Evaluation-General Medical Diagnosis Admission Date Jan 16, 2022 at 10:51 Medical Diagnosis: sepsis/A-fib/cellulitis right LE Onset Date: Jan 16, 2022 Therapy Diagnosis Therapy Diagnosis: debility/weakness Height/Weight Height (Feet): 5 Height (Inches): 5.00 Weight (Pounds): 245 Weight (Ounces): 0.0 Precautions Precautions/Isolations: Fall Prevention, Standard Precautions Referral Physician: Joel Reason for Referral: Evaluation/Treatment Medical History Pertinent Medical History: Atrial Fib, Arthritis, HTN, Post Polio Syndrome Additional Medical History morbid obesity Current History ER secondary to sore ankle after a cat scratch Reviewed History: Yes Social History Home: Single Level Current Living Status: Alone Entry Into Home: Level Entry Prior Prior Level of Function SCALE: Activities may be completed with or without assistive devices. 8-Gxstbllbia-hnvubad completes the activity by him/herself with no assistance from a helper. 5-Set-up or Clean-up Assistance-helper sets up or cleans up; patient completes activity. [place] assists only prior to or following the activity. 4-Supervision or Touching Assistance-helper provides verbal cues and/or touching/steadying and/or contact guard assistance as patient completes activity. Assistance may be provided throughout the activity or intermittently. 3-Partial/Moderate Assistance-helper does LESS THAN HALF the effort. [place] lifts, holds or supports trunk or limbs, but provides less than half the effort. 2-Substantial/Maximal Assistance-helper does MORE THAN HALF the effort. [place] lifts or holds trunk or limbs and provides more than half the effort. 9-Tytwzwbqr-testny does ALL the effort. Patient does none of the effort to complete the activity. Or, the assistance of 2 or more helpers is required for the patient to complete the activity. If activity was not attempted, code reason: 7-Patient Refused. 9-Not Applicable-not attempted and the patient did not perform the activity before the current illness, exacerbation or injury. 10-Not Attempted due to Environmental Limitations-(lack of equipment, weather restraints, etc.). 88-Not Attempted due to Medical Conditions or Safety Concerns. Bed Mobility: 6 Transfers (B,C,W/C): 6 Gait: 6 Stairs: 9 Wheelchair Mobility: 6 Indoor Mobility (Ambulation): Independent Prior Devices Use: Manual wheelchair, Motorized scooter, Walker (4WW) PT Evaluation-Current Subjective Patient agrees to PT. Pain Numeric Pain Scale: 8 Location: Right Location Body Site: Calf Pain Description: Acute Objective Patient Orientation: Normal For Age Attachments: [place] Catheter, IV ROM/Strength ROM Lower Extremities bilateral LE WFL Strength Lower Extremities right LE 3-/5 grossly/left LE 3/5 grossly Integumentary/Posture Integumentary refer to nursing notes Bladder Incontinence: [place]ina Cath Posture WFL Neuromuscular (Tone, Coordination, Reflexes) grossly intact Sensory Vision: Wears Glasses Hearing: Impaired Transfers Lying to Sitting/Side of Bed(Q: 3 Sit to Stand (QC): 3 Chair/Hec-se-Bbcbj Xfer(QC): 3 Gait Mode of Locomotion: Walk Anticipated Mode of Locomotion: Walk Walk 10 feet (QC): 3 Walk 50 ft with 2 Turns(QC): 3 Walk 150 ft (QC): 88 Distance: 100' Gait Assistive Device: FWW Comments/Gait Description slow, slightly antalgic Balance Sitting Static: Normal Sitting Dynamic: Normal Standing Static: Fair Standing Dynamic: Fair Assessment/Needs 76 y.o. female, will benefit from skilled PT to address functional strength and mobility to improve current LOF to safely return to home at maximum LOF. Rehab Potential: Fair PT Jail Goals Manhole Builder Goals PT Jail Goals Time Frame: Jan 28, 2022 Roll Left & Right (QC): 6 Sit to Lying (QC): 6 Lying-Sitting on Side/Bed(QC): 6 Sit to Stand (QC): 6 Chair/Yqa-dv-Cmixg Xfer(QC): 6 Toilet Transfer (QC): 6 Walk 10 feet (QC): 6 Walk 50ft with 2 Turns (QC): 6 PT Plan Problem List Problem List: Activity Tolerance, Functional Strength, Safety, Balance, Gait, Transfer, Bed Mobility Treatment/Plan Treatment Plan: Continue Plan of Care Treatment Plan: Bed Mobility, Education, Functional Activity Uyne, Functional Strength, Gait, Safety, Therapeutic Exercise, Transfers Treatment Duration: Jan 28, 2022 Frequency: 6 times per week Estimated Hrs Per Day: .25 hour per day Patient and/or Family Agrees t: Yes Time/GCodes Time In: 1103 Time Out: 1114 Total Billed Treatment Time: 11 [facility] PT Jan 17, 2022 11:35
[2022-01-17 11:53] VITALS: BP 131/56
--- NOTE | 2022-01-17 14:15 | Occupational Therapy Eval ---
OT Evaluation-General/PLF Medical Diagnosis Admission Date Jan 16, 2022 at 10:51 Medical Diagnosis: sepsis/A-fib/cellulitis right LE Onset Date: Jan 16, 2022 Therapy Diagnosis Therapy Diagnosis: cellulitis Height/Weight Height (Feet): 5 Height (Inches): 5.00 Weight (Pounds): 245 Weight (Ounces): 0.0 Precautions Precautions/Isolations: Fall Prevention, Standard Precautions Referral Physician: Joel Referral Reason: Evaluation/Treatment Medical History Pertinent Medical History: Atrial Fib, Arthritis, GERD, HTN, Post Polio Syndrome Additional Medical History obesity Current History Pt presents to hospital with RLE pain, swelling and tenderness after being scratched from her cat. Per patient, she lives alone in a single story home. She was indep with adls and has a caregiver 4x/week for IADLs. "She does whatever I ask, literally whatever I ask." Pt uses a 4WW and a wheelchair and just recently purchased a motorized scooter. She has supportive family that can also be available to help if needed. Reviewed History: Yes Social History Home: Single Level Current Living Status: Alone Entry Into Home: Level Entry ADL-Prior Level of Function SCALE: Activities may be completed with or without assistive devices. 2-Dcvrxbarfw-qkbpyvt completes the activity by him/herself with no assistance from a helper. 5-Set-up or Clean-up Assistance-helper sets up or cleans up; patient completes activity. [place] assists only prior to or following the activity. 4-Supervision or Touching Assistance-helper provides verbal cues and/or touching/steadying and/or contact guard assistance as patient completes activity. Assistance may be provided throughout the activity or intermittently. 3-Partial/Moderate Assistance-helper does LESS THAN HALF the effort. [place] lifts, holds or supports trunk or limbs, but provides less than half the effort. 2-Substantial/Maximal Assistance-helper does MORE THAN HALF the effort. [place] lifts or holds trunk or limbs and provides more than half the effort. 2-Mtrgkmrua-tgotvc does ALL the effort. Patient does none of the effort to complete the activity. Or, the assistance of 2 or more helpers is required for the patient to complete the activity. If activity was not attempted, code reason: 7-Patient Refused. 9-Not Applicable-not attempted and the patient did not perform the activity before the current illness, exacerbation or injury. 10-Not Attempted due to Environmental Limitations-(lack of equipment, weather restraints, etc.). 88-Not Attempted due to Medical Conditions or Safety Concerns. Self Care: Independent Functional Cognition: Independent DME/Equipment: Shower (walk in tub ) Drive Self: No OT Current Status Subjective Pt reports pain in back of calf, 5/10. RN aware. Appearance Pt returned to bed per request. All needs within reach, RN notified at OT departure. Mental Status/Objective Patient Orientation: Person, Place, Situation Attachments: IV Current Hand Dominance: Right Upper Extremity ROM Old rotator cuff injury in R shoulder but still able to get full range with extra time. All other joints WNL Upper Extremity Strength Not formally tested, appear at least 3+/5 ADL-Treatment Eating (QC): 6 Oral Hygiene (QC): 5 On/Off Footwear (QC): 4 Toileting Hygiene (QC): 6 Pt sitting on toilet at OT arrival. She stood to perform shankar care and clothing management without assist. She ambulated ~15 feet to bed with walker and SBA for management of IV pole. Good sitting balance at EOB. She was able to demonstrate ability to don L sock by bending at waist. She declines attempt to don R sock secondary to pain and swelling. She reports that she owns and uses a sock aid to don R sock at home. She was able to verbalize correct use of AE to therapist. SBA to return to supine. Pt denies any self care concerns and declines any further OT services at this time. Education OT Patient Education: Purpose of tx/functional activities, Transfer techniques Teaching Recipient: Patient Teaching Methods: Discussion Response to Teaching: Verbalize Understanding, Return Demonstration OT Auto Electrician Goals Shelter Goals 1=Demonstrate adherence to instructed precautions during ADL tasks. 2=Patient will verbalize/demonstrate understanding of assistive d evices/modifications for ADL. 3=Patient will improve strength/tolerance for activity to enable patient to perform ADL's. OT Education/Plan Problem List/Assessment Assessment: No Skilled OT Needs ID'd Discharge Recommendations Plan/Recommendations: Discontinue OT Therapy Discharge Recommendati: Home & Family Treatment Plan/Plan of Care Treatment,Training & Education: Yes Patient would benefit from OT for education, treatment and training to promote independence in ADL's, mobility, safety and/or upper extremity function for ADL's. Plan of Care: ADL Retraining, Functional Mobility Treatment Duration: Jan 17, 2022 Frequency: 1 time per week Estimated Hrs Per Day: .25 hour per day Agreement: Yes Time/GCodes Start Time: 13:50 Stop Time: 14:02 Total Time Billed (hr/min): 12 Billed Treatment Time 1 visit Tomasa Alonzo OT Jan 17, 2022 14:15
[2022-01-17 16:00] VITALS: BP 122/74
--- NOTE | 2022-01-17 16:01 | Progress Note - Hospitalist ---
Subjective HPI/CC On Admission Date Seen by Provider: Jan 17, 2022 Time Seen by Provider: 10:20 Gracia Amaya is a 76 year old female with PMH HTN, AFib, GERD, hypothyroidism, morbid obesity, who presented with right leg pain. Her cat scratched her leg a couple weeks ago. She completed a course of antibiotics at that time but now her right leg is very red. She also has swelling and tenderness. The wounds are weeping. She denies fevers. She denies nausea and vomiting. She denies chest pain and shortness of breath. Subjective/Events-last exam She is feeling better. She has less pain. She has no other complaints. Focused Exam Lactate Level 01/16/22 09:14: Lactic Acid Level 2.56*H 01/16/22 12:30: Lactic Acid Level 1.58 Objective Exam Vital Signs Vital Signs Date Time Temp Pulse Resp B/P (MAP) Pulse Ox O2 Delivery O2 Flow Rate FiO2 01/17/22 13:23 80 01/17/22 11:53 37.2 20 131/56 (81) 96 Room Air 01/16/22 12:56 21 01/16/22 12:56 0.00 Capillary Refill : Less Than 3 Seconds General Appearance: No Apparent Distress, Obese Respiratory: Lungs Clear, No Respiratory Distress Cardiovascular: Regular Rate, Rhythm, No Murmur Gastrointestinal: Normal Bowel Sounds, Soft Extremity: No Non Tender; Inflammation, Swelling Neurologic/Psychiatric: Alert, Normal Mood/Affect Skin: Erythema (right lower extremity with tenderness, warmth, ans swelling) Results/Procedures Lab Laboratory Tests 01/17/22 05:54 Patient resulted labs reviewed. Imaging: Reviewed Imaging Report Assessment/Plan Assessment and Plan Assess & Plan/Chief Complaint Cellulitis Cat scratch IV fluids Continue Zosyn HTN AFib GERD Hypothyroidism Morbid obesity Continue home meds Lactic acidosis, resolved Severe sepsis, resolved Diagnosis/Problems Diagnosis/Problems (1) Severe sepsis Status: Acute (2) Cellulitis of right lower extremity Status: Acute (3) Lactic acidosis Status: Acute (4) Cat scratch Status: Acute (5) Atrial fibrillation Status: Acute (6) Morbid obesity Status: Chronic LORE DAMICO MD Jan 17, 2022 16:01
[2022-01-17 19:36] VITALS: BP 111/66
[2022-01-17] MEDS: MELATONIN 3 MG TABLET PO PRN (22:18)
[2022-01-17 23:00] VITALS: BP 141/77
[2022-01-18 03:24] VITALS: BP 120/54
[2022-01-18] MEDS: LEVOTHYROXINE 25 MCG (LEVOTHROID) TAB PO SCH (05:33)
[2022-01-18] MEDS: LEVOTHYROXINE 100 MCG (LEVOTHROID) TAB PO SCH (05:33)
[2022-01-18] MEDS: KCL 20 MEQ TAB (K-DUR) PO SCH (06:00)
[2022-01-18] MEDS: POTASSIUM CL 10MEQ/50ML IVPB 50 ML IV SCH (06:00)
[2022-01-18] MEDS: MAGNESIUM 1 GM/100 ML IVPB 100 ML IV SCH (06:00)
[2022-01-18 06:14] LABS: POTASSIUM 3.7 MMOL/L (3.6-5.0)
[2022-01-18 06:15] LABS: CALCIUM 8.5 MG/DL (8.5-10.1)
[2022-01-18 06:20] LABS: CREATININE SERUM 0.6 MG/DL (0.60-1.30)
[2022-01-18 06:22] LABS: MAGNESIUM 2.1 MG/DL (1.6-2.4)
[2022-01-18 07:36] VITALS: BP 131/61
[2022-01-18] MEDS: APIXABAN 5 MG (ELIQUIS) TABLET PO SCH (08:53)
[2022-01-18] MEDS: PANTOPRAZOLE 40 MG (PROTONIX) TAB PO SCH (08:53)
[2022-01-18] MEDS: meTOproloL SUCCINATE 50 MG (TOPROL XL) TAB PO SCH (08:53)
[2022-01-18] MEDS: PIPERACILLIN SODIUM/TAZOBACTAM 4.5 GM in NS (IVPB) 100 ML IV SCH (08:53)
[2022-01-18 11:17] VITALS: BP 129/72
[2022-01-18] MEDS ORDERED: AMOX1TAB12 PO (11:53)
[2022-01-18 14:10] VITALS: BP 129/72
--- NOTE | 2022-01-18 16:27 | Discharge Summary ---
Discharge Summary Hospital Course Problems/Dx: (1) Severe sepsis Status: Acute (2) Cellulitis of right lower extremity Status: Acute (3) Lactic acidosis Status: Acute (4) Cat scratch Status: Acute (5) Atrial fibrillation Status: Acute (6) Morbid obesity Status: Chronic Hospital Course Date of Admission: Jan 16, 2022 at 10:51 Admission Diagnosis : Severe sepsis due to cellulitis Family Physician/Provider: Sary Prado Boxing Promoter Date of Discharge: 01/18/22 Discharge Diagnosis: Severe sepsis due to cellulitis Hospital course: Grcaia Amaya is a 76 year old female who was admitted with severe sepsis due to cellulitis of the right lower extremity. She had been scratched by her cat. She had redness, swelling, warmth, and tenderness. She had been on outpatient antibiotics without improvement. She was started on IV Zosyn and improved each day. Her erythema began to receed. Her pain improved significantly. She was transitioned to oral Augmentin to complete a course of antibiotics as an outpatient. She should follow up with her PCP in about a week to monitor progress. She was discharged home in stable condition. Labs and Pending Lab Test: Laboratory Tests 01/18/22 05:25: Sodium Level 139, Potassium Level 3.7, Chloride Level 108H, Carbon Dioxide Level 23, Anion Gap 8, Blood Urea Nitrogen 6L, Creatinine 0.60, Estimat Glomerular Filtration Rate 94, BUN/Creatinine Ratio 10, Glucose Level 93, Calcium Level 8.5, Magnesium Level 2.1 Microbiology 01/16/22 Urine Culture - Final, Complete Escherichia coli 01/16/22 Blood Culture - Preliminary, Resulted No growth 01/16/22 Gram Stain - Final, Resulted 01/16/22 Wound Culture - Preliminary, Resulted Enterococcus faecalis Mixed Bacterial Alyssa Testing In Progress Home Meds Active Amox Tr-K Clv 875-125 mg Tab (Amoxicillin/Potassium Clav) 875 Mg-125 Mg Tablet 1 Each PO BID 10 Days Reported Diltiazem 24Hr ER (Diltiazem HCl) 240 Mg Cap.er.24h 240 Mg PO Q12H Hydrocodone-Acetamin 10-325 mg (Hydrocodone/Acetaminophen) 10 Mg-325 Mg Tablet 1 Ea PO BID PRN C-1000 with [place]ips (Ascorbic Acid) 1,000 Mg Tablet 1,000 Mg PO DAILY Metoprolol Succinate 25 Mg Tab.er.24h 25 Mg PO 1700 Eliquis (Apixaban) 5 Mg Tablet 5 Mg PO BID Metoprolol Succinate 50 Mg Tab.er.24h 50 Mg PO DAILY Magnesium (Magnesium Oxide) 250 Mg Tablet 250 Mg PO DAILY B Complex (Vitamin B Complex) 1 Each Tablet 1 Tab PO DAILY Calcium Citrate - Vit D Tablet (Calcium Citrate/Vitamin D3) 1 Each Tablet 1 Tab PO DAILY Pantoprazole Sodium 40 Mg Tablet.dr 40 Mg PO DAILY Synthroid (Levothyroxine Sodium) 25 Mcg Tablet 12.5 Mcg PO DAILY TAKES OF A 25MCG TAB TAKES 12.5MCG +200MCG TO EQUAL 212.5MCG DAILY Synthroid (Levothyroxine Sodium) 200 Mcg Tablet 200 Mcg PO DAILY TAKES 12.5MCG +200MCG TO EQUAL 212.5MCG DAILY Assessment/Pt Instructions Take medications as prescribed. Follow up with your PCP. Return with worsening redness, swelling, pain, or if you feel like you are getting worse. Discharge Planning: >30 minutes discharge planning Discharge Instructions Discharge Diet: No Restrictions Activity as Tolerated: Yes Discharge Physical Examination Vital Signs Vital Signs Date Time Temp Pulse Resp B/P (MAP) Pulse Ox O2 Delivery O2 Flow Rate FiO2 01/18/22 14:10 37.5 78 20 129/72 96 Room Air 01/16/22 12:56 21 01/16/22 12:56 0.00 General Appearance: No Apparent Distress, Obese Respiratory: Lungs Clear, No Respiratory Distress Cardiovascular: Regular Rate, Rhythm, No Murmur Gastrointestinal: Normal Bowel Sounds, Soft Extremity: Normal Inspection, No Pedal Edema Skin: Erythema (warmth, tenderness) Neurologic/Psychiatric: Alert, Normal Mood/Affect Allergies: Coded Allergies: tetracycline (Unverified Allergy, Mild, HEADACHE, 06/29/20) cefdinir (Unverified Adverse Reaction, Intermediate, DIARRHEA, 06/29/20) Discharge Summary Date of Admission Jan 16, 2022 at 10:51 Date of Discharge Discharge Date: Jan 18, 2022 Discharge Time: 16:24 Admission Diagnosis Severe sepsis due to cellulitis Discharge Diagnosis Severe sepsis Cellulitis of right lower extremity Cat scratch (1) Severe sepsis Status: Acute (2) Cellulitis of right lower extremity Status: Acute (3) Lactic acidosis Status: Acute (4) Cat scratch Status: Acute (5) Atrial fibrillation Status: Acute (6) Morbid obesity Status: Chronic LORE DAMICO MD Jan 18, 2022 16:27
== END 2022-01-18 14:10 | disposition home or self-care (01) | DRG 872 ==
LOC: EDUNIT# 08:27 → ER 08:29 → 4TH 10:51
PROVIDERS: ADMIT Internal Medicine; ATTEND Internal Medicine
DX: A41.9 Sepsis, unspecified organism (principal); L03.115 Cellulitis of right lower limb; E87.2 Acidosis; Z68.41 Body mass index [BMI] 40.0-44.9, adult; I48.91 Unspecified atrial fibrillation; K21.9 Gastro-esophageal reflux disease without esophagitis; M19.90 Unspecified osteoarthritis, unspecified site; E03.9 Hypothyroidism, unspecified; Z85.3 Personal history of malignant neoplasm of breast; Z92.3 Personal history of irradiation; I10 Essential (primary) hypertension; E66.01 Morbid (severe) obesity due to excess calories; Z87.891 Personal history of nicotine dependence; R65.20 Severe sepsis without septic shock; W55.03XA Scratched by cat, initial encounter
CPT/HCPCS: 36415; 71045; 80048; 80053; 81000; 83605; 83735; 85007; 85025; 85027; 85610; 85652; 85730; 86141; 87040; 87070; 87077; 87088; 87186; 87205; 94760

== ENCOUNTER 2022-04-17 19:59 | Inpatient (IN) | payer MEDICARE ==
[~2022-04-17] VITALS: Ht 165.1 cm; Wt 119.2 kg
[~2022-04-17 19:59] MED LIST changes: +AMOX1TAB12 PO; +DILT240C91 PO; +HYDR-3820 PO; +[UNRECOGNIZED DRUG - CODE] PO
[2022-04-17] MEDS ORDERED: PIPERACILLIN SODIUM/TAZOBACTAM 4.5 GM in NS (IVPB) 100 ML IV ONE (20:15)
[2022-04-17] MEDS ORDERED: LIDOCAINE UROJET 2% GEL 10 ML PKG TOP ONE (20:15)
[2022-04-17] MEDS ORDERED: IBUPROFEN 800 MG (MOTRIN) TAB PO ONE (20:15)
[2022-04-17] MEDS ORDERED: ACETAMINOPHEN 500 MG TAB (TYLENOL) PO ONE (20:15)
[2022-04-17] MEDS ORDERED: LACTATED RINGERS 1,000 ML IV ONE (20:15)
[2022-04-17] MEDS ORDERED: ACETAMINOPHEN 500 MG TAB (TYLENOL) PO PRN ×2 (20:15→23:15)
--- NOTE | 2022-04-17 20:18 | ED General ---
General Chief Complaint: Back Problems Stated Complaint: FEVER/CHILLS/WEAKNESS Nursing Triage Note: patient arrived via ems with lower back pain. patient had fever of 101, tachy. states back pain started this am. Source of Information: Patient (VERY LIMITED HISTORIAN), Old Records (ALL PMH IS FROM OLD CHART) History of Present Illness Date Seen by Provider: Apr 17, 2022 Time Seen by Provider: 20:00 Initial Comments PT ARRIVES VIA [facility] EMS PT C/O FEVER, CHILLS, GENERALIZED WEAKNESS, BODY ACHES, BACK PAIN SINCE THIS MORNING TEMP 101 FOR EMS HAS HAD A MILD COUGH NO SHORTNESS OF BREATH NO CHEST PAIN NO GI SYMPTOMS NO PAIN ON URINATION, BUT STATES SHE CHRONICALLY HAS BLADDER CONTROL ISSUES. NO HEADACHE HAS BEEN EATING AND DRINKING NORMALLY NO ABDOMINAL PAIN HAS NOT TAKEN ANYTHING FOR SYMPTOMS PCP: CORINE LIZ, DR. MCDONALD Allergies and Home Medications Allergies Coded Allergies: tetracycline (Unverified Allergy, Mild, HEADACHE, 06/29/20) cefdinir (Unverified Adverse Reaction, Intermediate, DIARRHEA, 06/29/20) Patient Home Medication List Home Medication List Reviewed: Yes Amoxicillin/Potassium Clav (Amox Tr-K Clv 875-125 mg Tab) 875 Mg-125 Mg Tablet, 1 EACH PO BID Prescribed by: LORE DAMICO on 01/18/22 1153 Apixaban (Eliquis) 5 Mg Tablet, 5 MG PO BID, (Reported) Entered as Reported by: RAYMOND BUI on 06/01/16 0832 Ascorbic Acid (C-1000 with [facility] Hips) 1,000 Mg Tablet, 1,000 MG PO DAILY, (Reported) Entered as Reported by: HIMA JEFFERSON on 01/16/22 1457 Calcium Citrate/Vitamin D3 (Calcium Citrate - Vit D Tablet) 1 Each Tablet, 1 TAB PO DAILY, (Reported) Entered as Reported by: YOAN RIVER on 03/23/16 1615 Diltiazem HCl (Diltiazem 24Hr ER) 240 Mg Cap.er.24h, 240 MG PO Q12H, (Reported) Entered as Reported by: HIMA JEFFERSON on 01/16/22 1457 Hydrocodone/Acetaminophen (Hydrocodone-Acetamin 10-325 mg) 10 Mg-325 Mg Tablet, 1 EA PO BID PRN for PAIN-MODERATE (5-7), (Reported) Entered as Reported by: HIMA JEFFERSON on 01/16/22 1457 Levothyroxine Sodium (Synthroid) 200 Mcg Tablet, 200 MCG PO DAILY, (Reported) Entered as Reported by: NILES SEAMAN on 09/14/15 003 Levothyroxine Sodium (Synthroid) 25 Mcg Tablet, 12.5 MCG PO DAILY, (Reported) Entered as Reported by: NILES SEAMAN on 09/14/15 003 Magnesium Oxide (Magnesium) 250 Mg Tablet, 250 MG PO DAILY, (Reported) Entered as Reported by: YOAN RIVER on 04/13/16 1317 Metoprolol Succinate (Metoprolol Succinate) 50 Mg Tab.er.24h, 50 MG PO DAILY, (Reported) Entered as Reported by: SERAFIN ALCARAZ on 05/02/16 0950 Metoprolol Succinate (Metoprolol Succinate) 25 Mg Tab.er.24h, 25 MG PO 1700, (Reported) Entered as Reported by: YOAN RIVER on 12/11/17 1352 Pantoprazole Sodium (Pantoprazole Sodium) 40 Mg Tablet.dr, 40 MG PO DAILY, (Reported) Entered as Reported by: NILES SEAMAN on 09/14/1531 Vitamin B Complex (B Complex) 1 Each Tablet, 1 TAB PO DAILY, (Reported) Entered as Reported by: YOAN RIVER on 03/23/16 1617 Review of Systems Review of Systems Constitutional: see HPI, chills, fever, malaise, weakness EENTM: no symptoms reported Respiratory: no symptoms reported Cardiovascular: no symptoms reported Gastrointestinal: no symptoms reported Genitourinary: no symptoms reported Musculoskeletal: see HPI, back pain, muscle pain, other (C/O CHRONIC RIGHT KNEE PAIN ) Skin: no symptoms reported Psychiatric/Neurological: No Symptoms Reported Hematologic/Lymphatic: No Symptoms Reported Past Mxpsghi-Xlttxt-Onnafk Hx Patient Social History Tobacco Use?: No Use of E-Cig and/or Vaping Urban: Unknown if Ever Used Alcohol Use?: No Immunizations Up To Date Tetanus Booster (TDap): Less than 5yrs PED Vaccines UTD: Yes Seasonal Allergies Seasonal Allergies: Yes (took allergy shots for 5 years) Past Medical History Surgeries: Yes (ANKLE X2,UMBIL HERNIA, ROTATOR CUFF, R BREAST LUMPECTOMY) Abdominal, Breast, Cardiac, Gallbladder, Orthopedic Respiratory: No Currently Using CPAP: No Currently Using BIPAP: No Cardiac: Yes (RIGHT LEG MORE SWOLLEN THAN LEFT CHRONICALLY) Atrial Fibrillation, Chronic Edema/Swelling, Hypertension, Valvular Heart Disease Neurological: Yes (POLIO--RIGHT LEG AFFECTED) Reproductive Disorders: No Female Reproductive Disorders: Denies 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 Sexually Transmitted Disease: No HIV/AIDS: No Genitourinary: No Gastrointestinal: Yes Abdominal Hernia, Gastroesophageal Reflux, Gall Bladder Disease Musculoskeletal: Yes (R FEMUR FRACTURE-NO SURG; MULTIPLE ORTHO SURGERIES;R LEG POLIO) Arthritis Endocrine: Yes (MORBID OBESITY) Hypothyroidsim HEENT: Yes (GLASSES) Cataract Hearing Impairment: Hard of Hearing, Bilateral Hearing Aide Cancer: Yes (lumpectomy in 2010 and radiation 28 days) Breast Did You Recieve Any Treatments: Yes What Type of Treatment Did You: Radiation, Surgical Intervention Psychosocial: No Integumentary: Yes (CELLULITIS OF LEG 12/2021) Blood Disorders: No Adverse Reaction/Blood Tranf: No (N/A) Family Medical History Cardiovascular disease 19 MOTHER, Onset:79 ( at 79) G8 SISTER, Onset:75 (alive) Completed stroke 19 FATHER, Onset:77 ( at 77 with stroke) Gastroenteritis G8 SISTER, Onset:66 (alive) CHRONIC RIGHT KNEE PAIN PAST SURGICAL HISTORY: -LEFT CATARACT SURGERY 06/2020 -CHOLECYSTECTOMY -UMBILICAL HERNIA REPAIR -RIGHT BREAST LUMPECTOMY FOR CANCER 2010 -RIGHT ANKLE X 2 -RIGHT SHOULDER ROTATOR CUFF REPAIR -RIGHT KNEE SCOPE 04/[address] DOTSON -CARDIOVERSIONS FOR ATRIAL FIBRILLATION 12/25/2017 AND 01/22/[address] LEROY -CARDIAC CATH 12/11/[address] LEROY. CONCLUSION: 1. No angiographically significant coronary artery disease. 2. Normal regional wall motion. 3. Normal global left ventricular systolic function with an ejection fraction of 65%. 4. Mild elevation of left ventricular end-diastolic pressure. Physical Exam Vital Signs Vital Signs - First Documented 04/17/22 20:05 Temp 37.8 Pulse 133 Resp 20 B/P (MAP) 144/105 (118) Pulse Ox 93 O2 Delivery Room Air Capillary Refill : Less Than 3 Seconds Height, Weight, BMI Height: 5'5.00" Weight: 245lbs. 0.0oz. 111.737390fl; 38.00 BMI Method:Stated General Appearance: No Apparent Distress, WD/WN, Obese (MORBIDLY OBESE) HEENT: PERRL/EOMI, Normal ENT Inspection Neck: Normal Inspection Respiratory: Normal Breath Sounds, No Accessory Muscle Use, No Respiratory Distress Cardiovascular: Irregularly Irregular, Tachycardia (120-130'S) Gastrointestinal: Soft, Tenderness (MILD SUPRAPUBIC TENDERNESS) Back: CVA Tenderness (L), CVA Tenderness (R) Extremity: Normal Capillary Refill, Other (RIGHT LEG WITH 4+ EDEMA/ LEFT LEG WITH 2-3+ EDEMA--NORMAL FOR PT. ) Neurologic/Psychiatric: Alert, Oriented x3 (BUT POOR MEMORY), No Motor/Sensory Deficits, Normal Mood/Affect, bee tender II-XII Norm as Tested, Other (RIGHT LEG WEAKNESS/ POST POLIO--NORMAL BASELINE) Skin: Warm/Dry, Other (FLUSHED, WARM. ) Focused Exam Lactate Level 04/17/22 20:20: Lactic Acid Level 1.60 Lactic Acid Level Laboratory Tests Test 04/17/22 20:20 Lactic Acid Level 1.60 MMOL/L (0.50-2.00) Procedures/Interventions Suture Size: 4-0 Progress/Results/Core Measures Suspected Sepsis SIRS Temperature: Pulse: 133 Respiratory Rate: 20 Laboratory Tests 04/17/22 20:06: White Blood Count 13.6H Blood Pressure 144 /105 Mean: 118 04/17/22 20:20: Lactic Acid Level 1.60 Laboratory Tests 04/17/22 20:06: Creatinine 0.79, INR Comment 1.8H, Platelet Count 347, Total Bilirubin 1.1H Results/Orders Lab Results Laboratory Tests Test 04/17/22 20:06 04/17/22 20:08 04/17/22 20:20 04/17/22 20:23 Range/Units White Blood Count 13.6 H 4.3-11.0 10^3/uL Red Blood Count 4.54 3.80-5.11 10^6/uL Hemoglobin 13.1 11.5-16.0 g/dL Hematocrit 40 35-52 % Mean Corpuscular Volume 87 80-99 fL Mean Corpuscular Hemoglobin 29 25-34 pg Mean Corpuscular Hemoglobin Concent 33 32-36 g/dL Red Cell Distribution Width 14.6 H 10.0-14.5 % Platelet Count 347 130-400 10^3/uL Mean Platelet Volume 10.4 9.0-12.2 fL Immature Granulocyte % (Auto) 1 % Neutrophils (%) (Auto) 90 H 42-75 % Lymphocytes (%) (Auto) 5 L 12-44 % Monocytes (%) (Auto) 5 0-12 % Eosinophils (%) (Auto) 0 0-10 % Basophils (%) (Auto) 0 0-10 % Neutrophils # (Auto) 12.2 H 1.8-7.8 10^3/uL Lymphocytes # (Auto) 0.6 L 1.0-4.0 10^3/uL Monocytes # (Auto) 0.7 0.0-1.0 10^3/uL Eosinophils # (Auto) 0.0 0.0-0.3 10^3/uL Basophils # (Auto) 0.0 0.0-0.1 10^3/uL Immature Granulocyte # (Auto) 0.1 0.0-0.1 10^3/uL Neutrophils % (Manual) 90 % Lymphocytes % (Manual) 6 % Monocytes % (Manual) 4 % Polychromasia SLIGHT Target Cells SLIGHT Prothrombin Time 21.3 H 12.2-14.7 SEC INR Comment 1.8 H 0.8-1.4 Activated Partial Thromboplast Time 35 24-35 SEC Sodium Level 135 135-145 MMOL/L Potassium Level 4.3 3.6-5.0 MMOL/L Chloride Level 101 98-107 MMOL/L Carbon Dioxide Level 20 L 21-32 MMOL/L Anion Gap 14 5-14 MMOL/L Blood Urea Nitrogen 13 7-18 MG/DL Creatinine 0.79 0.60-1.30 MG/DL Estimat Glomerular Filtration Rate 78 BUN/Creatinine Ratio 16 Glucose Level 150 H 70-105 MG/DL Calcium Level 9.3 8.5-10.1 MG/DL Corrected Calcium 9.7 8.5-10.1 MG/DL Magnesium Level 1.7 1.6-2.4 MG/DL Total Bilirubin 1.1 H 0.1-1.0 MG/DL Aspartate Amino Transf (AST/SGOT) 46 H 5-34 U/L Alanine Aminotransferase (ALT/SGPT) 35 0-55 U/L Alkaline Phosphatase 87 40-136 U/L Total Protein 7.4 6.4-8.2 GM/DL Albumin 3.5 3.2-4.5 GM/DL Amylase Level 25 25-125 U/L Procalcitonin 1.12 H <0.10 NG/ML Influenza Type A (RT-PCR) Not Detected Not Detecte Influenza Type B (RT-PCR) Not Detected Not Detecte SARS-CoV-2 RNA (RT-PCR) Not Detected Not Detecte Lactic Acid Level 1.60 0.50-2.00 MMOL/L Urine Color YELLOW Urine Clarity CLEAR Urine pH 6.0 5-9 Urine Specific [place] <=1.005 1.016-1.022 Urine Protein TRACE H NEGATIVE Urine Glucose (UA) NEGATIVE NEGATIVE Urine Ketones NEGATIVE NEGATIVE Urine Nitrite POSITIVE H NEGATIVE Urine Bilirubin NEGATIVE NEGATIVE Urine Urobilinogen 0.2 < = 1.0 MG/DL Urine Leukocyte Esterase 2+ H NEGATIVE Urine RBC (Auto) 3+ H NEGATIVE Urine RBC 0-2 /HPF Urine WBC 5-10 H /HPF Urine Squamous Epithelial Cells NONE /HPF Urine Renal Epithelial Cells NONE /HPF Urine Crystals NONE /LPF Urine Bacteria LARGE H /HPF Urine Casts NONE /LPF Urine Mucus NEGATIVE /LPF Urine Culture Indicated CULTURE PENDING My Orders Orders - REECE FUENTES DO Covid 19 Inhouse Test (04/17/22 20:04) Influenza A And B By Pcr (04/17/22 20:04) Isolation Central Supply Req (04/17/22 20:04) Cbc With Automated Diff (04/17/22 20:10) Comprehensive Metabolic Panel (04/17/22 20:10) Blood Culture (04/17/22 20:10) Sputum Culture (04/17/22 20:10) Urinalysis (04/17/22 20:10) Urine Culture (04/17/22 20:10) Protime With Inr (04/17/22 20:10) Partial Thromboplastin Time (04/17/22 20:10) Chest 1 View, Ap/Pa Only (04/17/22 20:10) Acetaminophen Tablet (Tylenol Tablet) (04/17/22 20:15) Ed Iv/Invasive Line Start (04/17/22 20:10) Ed Iv/Invasive Line Start (04/17/22 20:10) Vital Signs Adult Sepsis Patie Q15M (04/17/22 20:10) O2 (04/17/22 20:10) Remove Rings In Anticipation O (04/17/22 20:10) Lactic Acid Analyzer (04/17/22 20:10) Lactated Ringers (Lr 1000 Ml Iv Solution (04/17/22 20:15) Piperacillin Sodium/Tazobactam (Zosyn Vi (04/17/22 20:15) Amylase (04/17/22 20:10) Magnesium (04/17/22 20:10) Procalcitonin (Pct) (04/17/22 20:10) Catheter(Urinary) Insert & Ass 03,15 (04/17/22 20:10) Lidocaine 2% (Urojet) (Xylocaine Urojet) (04/17/22 20:15) Acetaminophen Tablet (Tylenol Tablet) (04/17/22 20:15) Ibuprofen Tablet (Motrin Tablet) (04/17/22 20:15) Ekg Tracing (04/17/22 20:18) Monitor-Rhythm Ecg Trace Only (04/17/22 20:18) Manual Differential (04/17/22 20:06) Medications Given in ED Current Medications Medications Dose Ordered Sig/Darryn Route Start Time Stop Time Status Last Admin Dose Admin Acetaminophen 1,000 mg ONCE ONCE PO 04/17/22 20:15 04/17/22 20:16 DC 04/17/22 20:38 1,000 MG Ibuprofen 800 mg ONCE ONCE PO 04/17/22 20:15 04/17/22 20:16 DC 04/17/22 20:38 800 MG Lactated Ringer's 1,000 ml @ 0 mls/hr Q0M ONCE IV 04/17/22 20:15 04/17/22 20:16 DC 04/17/22 20:38 1,000 MLS/HR Vital Signs/I&O 04/17/22 20:05 Temp 37.8 Pulse 133 Resp 20 B/P (MAP) 144/105 (118) Pulse Ox 93 O2 Delivery Room Air Capillary Refill : Less Than 3 Seconds Blood Pressure Mean: 118 Progress Note : Progress Note PLACED IN ISOLATION ROOM PPE WORN COVID AND FLU TESTING DONE SEPSIS PROTOCOL INITIATED GIVEN: -IV FLUIDS -TYLENOL AND MOTRIN -ANTIBIOTICS -FENTANYL FOR CHRONIC RIGHT KNEE PAIN COMPLAINT--IS PT'S MAIN COMPLAINT DURING ER STAY NO COUGH NO DYSPNEA NO HYPOXIA NO HYPOTENSION NO AGGRESSIVE TREATMENT OF AFIB/RVR PT CURRENTLY HAS A FEVER--WILL HYDRATE AND GIVE ANTI-PYRETICS PT IS NOT HYPOTENSIVE. PT IS CURRENTLY ON ELIQUIS FOR CHRONIC ANTICOAGULATION NO DETERIORATION IN PT'S CONDITION DURING ER STAY ECG Initial ECG Impression Date: Apr 17, 2022 Initial ECG Impression Time: 20:29 Initial ECG Rate: 126 Initial ECG Impression: Atrial Fibrillation w/RVR Diagnostic Imaging Comments CXR--PER RADIOLOGIST REPORT AT 2049 FINDINGS: There is a possible infiltrate at the left lung base with adjacent pleural fluid. Right lung clear. There is cardiomegaly. Pulmonary vasculature normal. No pneumothorax. IMPRESSION: 1. Suspected left base infiltrate with small adjacent effusion. Reviewed: Reviewed by Me Departure Communication (Admissions) 2099--SPOKE WITH DR. YANCEY, HOSPITALIST, ACCEPTS PT FOR ADMIT Impression Primary Impression: Sepsis Additional Impressions: UTI (urinary tract infection) LLL pneumonia Atrial fibrillation with rapid ventricular response HTN (hypertension) Disposition: ADMITTED INPATIENT Condition: Stable Admissions Decision to Admit Reason: Admit from ER (General) Decision to Admit/Date: Apr 17, 2022 Time/Decision to Admit Time: 21:00 Departure-Patient Inst. Referrals: LONNIE MCDONALD MD (PCP) Primary Care Physician KWAN MCNEIL APRN (Family) Primary Care Physician REECE FUENTES DO Apr 17, 2022 20:18
[2022-04-17 20:20] LABS: BASOPHILS % (AUTO) 0 % (0-10); EOSINOPHILS % (AUTO) 0 % (0-10); HEMATOCRIT 40 % (35-52); HEMOGLOBIN 13.1 g/dL (11.5-16.0); LYMPHOCYTES # (AUTO) 0.6 10^3/uL (1.0-4.0); LYMPHOCYTES % (AUTO) 5 % (12-44); MEAN CORPUSCULAR HEMOGLOBIN 29 pg (25-34); MEAN CORPUSCULAR HGB CONC 33 g/dL (32-36); MEAN CORPUSCULAR VOLUME 87 fL (80-99); MEAN PLATELET VOLUME 10.4 fL (9.0-12.2); MONOCYTES # (AUTO) 0.7 10^3/uL (0.0-1.0); MONOCYTES % (AUTO) 5 % (0-12); NEUTROPHILS # (AUTO) 12.2 10^3/uL (1.8-7.8); NEUTROPHILS % (AUTO) 90 % (42-75); PLATELET COUNT 347 10^3/uL (130-400); WHITE BLOOD COUNT 13.6 10^3/uL (4.3-11.0)
[2022-04-17 20:38] LABS: INR 1.8 (0.8-1.4); PROTHROMBIN TIME PATIENT 21.3 SEC (12.2-14.7)
[2022-04-17 20:40] LABS: BILIRUBIN,URINE NEGATIVE (NEGATIVE); CLARITY,URINE CLEAR; COLOR,URINE YELLOW; GLUCOSE, URINE (UA) NEGATIVE (NEGATIVE); KETONES,URINE NEGATIVE (NEGATIVE); LEUKOCYTE ESTERASE ,URINE 2+ (NEGATIVE); NITRITE,URINE POSITIVE (NEGATIVE); PROTEIN,URINE TRACE (NEGATIVE)
--- NOTE | 2022-04-17 20:43 | Diagnostic Imaging Report ---
INDICATION: Fever EXAMINATION: Chest 04/17/2022 COMPARISON: 01/16/2022 FINDINGS: There is a possible infiltrate at the left lung base with adjacent pleural fluid. Right lung clear. There is cardiomegaly. Pulmonary vasculature normal. No pneumothorax. IMPRESSION: 1. Suspected left base infiltrate with small adjacent effusion. Dictated by: Dictated on workstation # [id number]
[2022-04-17 20:44] LABS: LYMPHOCYTES % (MANUAL) 6 %; MONOCYTES % (MANUAL) 4 %; NEUTROPHILS % (MANUAL) 90 %; POLYCHROMASIA SLIGHT; TARGET CELLS SLIGHT
[2022-04-17 20:49] LABS: BACTERIA,URINE LARGE /HPF; RBC,URINE 0-2 /HPF
[2022-04-17 20:51] LABS: ALBUMIN 3.5 GM/DL (3.2-4.5); BILIRUBIN,TOTAL 1.1 MG/DL (0.1-1.0); CALCIUM 9.3 MG/DL (8.5-10.1); CREATININE SERUM 0.79 MG/DL (0.60-1.30); MAGNESIUM 1.7 MG/DL (1.6-2.4); POTASSIUM 4.3 MMOL/L (3.6-5.0); TOTAL PROTEIN 7.4 GM/DL (6.4-8.2)
[2022-04-17] MEDS ORDERED: fentaNYL INJ 100 MCG/2 ML AMP IVP ONE (21:30)
[2022-04-17 22:27] VITALS: BP 109/68
[2022-04-17 23:06] VITALS: BP 144/105
[2022-04-17] MEDS ORDERED: IBUPROFEN 800 MG (MOTRIN) TAB PO PRN (23:15)
[2022-04-17] MEDS ORDERED: ONDANSETRON 4 MG/2 ML (SDV) Z0FRAN IV PRN (23:15)
[2022-04-17] MEDS: LACTATED RINGERS 1,000 ML IV SCH (23:16)
[2022-04-17] MEDS: fentaNYL INJ 100 MCG/2 ML AMP IV PRN (23:17)
[2022-04-17] MEDS ORDERED: RT-IPRATROPIUM (ATROVENT) 0.5MG/2.5ML AMP IH PRN (23:30)
[2022-04-18] VITALS (7 sets, daily range): BP systolic 102–138; BP diastolic 57–94
[2022-04-18] MEDS: PIPERACILLIN SODIUM/TAZOBACTAM 4.5 GM in NS (IVPB) 100 ML IV SCH ×3 (03:32→19:22)
[2022-04-18] MEDS: LACTATED RINGERS 1,000 ML IV SCH ×3 (03:32→16:56)
[2022-04-18] MEDS: fentaNYL INJ 100 MCG/2 ML AMP IV PRN (03:56)
[2022-04-18 05:47] LABS: BASOPHILS # (AUTO) 0.1 10^3/uL (0.0-0.1); BASOPHILS % (AUTO) 0 % (0-10); EOSINOPHILS % (AUTO) 0 % (0-10); HEMATOCRIT 35 % (35-52); HEMOGLOBIN 11.5 g/dL (11.5-16.0); LYMPHOCYTES # (AUTO) 1.5 10^3/uL (1.0-4.0); LYMPHOCYTES % (AUTO) 13 % (12-44); MEAN CORPUSCULAR HEMOGLOBIN 29 pg (25-34); MEAN CORPUSCULAR HGB CONC 33 g/dL (32-36); MEAN CORPUSCULAR VOLUME 89 fL (80-99); MEAN PLATELET VOLUME 10.1 fL (9.0-12.2); MONOCYTES # (AUTO) 0.8 10^3/uL (0.0-1.0); MONOCYTES % (AUTO) 7 % (0-12); NEUTROPHILS # (AUTO) 9.4 10^3/uL (1.8-7.8); NEUTROPHILS % (AUTO) 80 % (42-75); PLATELET COUNT 293 10^3/uL (130-400); WHITE BLOOD COUNT 11.8 10^3/uL (4.3-11.0)
[2022-04-18 06:00] LABS: ALBUMIN 3.1 GM/DL (3.2-4.5); POTASSIUM 3.7 MMOL/L (3.6-5.0)
[2022-04-18 06:02] LABS: CALCIUM 8.8 MG/DL (8.5-10.1)
[2022-04-18 06:03] LABS: TOTAL PROTEIN 6.2 GM/DL (6.4-8.2)
[2022-04-18 06:05] LABS: BILIRUBIN,TOTAL 0.9 MG/DL (0.1-1.0)
[2022-04-18 06:06] LABS: CREATININE SERUM 0.81 MG/DL (0.60-1.30)
--- NOTE | 2022-04-18 09:35 | Diagnostic Imaging Report ---
EXAMINATION: Chest 1 view HISTORY: Follow-up pneumonia. Shortness of breath. Fever. COMPARISON: 04/17/2022. FINDINGS: Increased opacities are seen in the left lung base. No large pleural effusion or pneumothorax. Stable prominent cardiac silhouette. There is calcified aortic atherosclerotic plaque. There is prominence of the central pulmonary vasculature which is increased compared to the prior exam. IMPRESSION: 1. Increasing consolidative opacities in the left lung base concerning for worsening pneumonia. 2. New central pulmonary vascular congestion with continued cardiomegaly. Dictated by: Dictated on workstation # [id number]
--- NOTE | 2022-04-18 09:36 | History & Physical-Hospitalist ---
History of Present Illness HPI/Chief Complaint Patient is 76-year-old female with past medical history of postpolio syndrome, Hypothyroidism, hypertension, hyperlipidemia, osteoarthritis who presented to the emergency department due to weakness and fevers. She did complain of a little bit of a cough but no shortness of breath or chest pain. She complained to the emergency room of back pain but complained to me of right knee pain. She did complain of some urinary incontinence but that is chronic for her. She reported having myalgias as well. In the emergency room she was found to be septic from a urinary tract infection with possible infiltrate on chest x-ray. She was admitted for further management. This morning she reports feeling slightly better and would like her catheter out. She also complains of her right knee pain but states that she follows with 5 different orthopedic surgeons for that and would just like her home pain medication restarted. Source: patient Date Seen 04/18/22 Time Seen by a Provider: 09:29 Attending Physician Carlyn Aguilar MD PCP Admitting Physician: Garry Ojeda MD Attending Physician: Garry Ojeda MD Referring Physician Date of Admission Apr 17, 2022 at 21:00 Home Medications & Allergies Home Medications Reviewed patient Home Medication Reconciliation performed by pharmacy medication reconciliations respiratory technician and/or nursing. Patients Allergies have been reviewed. Allergies Allergies Coded Allergies tetracycline (Unverified Allergy, Mild, HEADACHE, 06/29/20) cefdinir (Unverified Adverse Reaction, Intermediate, DIARRHEA, 06/29/20) Past Mzisiqc-Qzysam-Yvxvrz Hx Patient Social History Tobacco Use?: No Smoking Status: Former Smoker Use of E-Cig and/or Vaping dev: No Use of E-Cig and/or Vaping Urban: Unknown if Ever Used Substance use?: No Alcohol Use?: Yes Alcohol type: Hard Liquor Additional alcohol type: whiskey sours 2 per day Alcohol Frequency: Daily Pt feels they are or have been: No Immunizations Up To Date Date of Influenza Vaccine: Apr 22, 2019 First/Initial COVID19 Vaccinat: 2020 Second COVID19 Vaccination Woo: 2020 Tetanus Booster (TDap): Unknown Hepatitis A: No Hepatitis B: No PED Vaccines UTD: Yes Date of Pneumonia Vaccine: Apr 11, 2017 Seasonal Allergies Seasonal Allergies: Yes (took allergy shots for 5 years) Current Status status: No status: No Advance Directives: Unable to obtain Communicates: Verbally Primary Language: Malaysian Preferred Spoken Language: Malaysian Is interpretation needed?: No Sensory deficits: Vision impairment, Hearing impairment Implanted or Applied Medical D: None Past Medical History Surgeries: Abdominal, Breast, Cardiac, Gallbladder, Orthopedic Currently Using CPAP: No Currently Using BIPAP: No Atrial Fibrillation, Chronic Edema/Swelling, Hypertension, Valvular Heart Disease 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 Sexually Transmitted Disease: No HIV/AIDS: No Abdominal Hernia, Gastroesophageal Reflux, Gall Bladder Disease Arthritis Hypothyroidsim Cataract Hearing Impairment: Hard of Hearing, Bilateral Hearing Aide Breast Did You Recieve Any Treatments: Yes What Type of Treatment Did You: Radiation, Surgical Intervention Blood Disorders: No Adverse Reaction/Blood Tranf: No (N/A) Family Medical History Cardiovascular disease 19 MOTHER, Onset:79 ( at 79) G8 SISTER, Onset:75 (alive) Completed stroke 19 FATHER, Onset:77 ( at 77 with stroke) Gastroenteritis G8 SISTER, Onset:64 (alive) CHRONIC RIGHT KNEE PAIN PAST SURGICAL HISTORY: -LEFT CATARACT SURGERY 06/2020 -CHOLECYSTECTOMY -UMBILICAL HERNIA REPAIR -RIGHT BREAST LUMPECTOMY FOR CANCER 2010 -RIGHT ANKLE X 2 -RIGHT SHOULDER ROTATOR CUFF REPAIR -RIGHT KNEE SCOPE 04/[address] DOTSON -CARDIOVERSIONS FOR ATRIAL FIBRILLATION 12/25/2017 AND 01/22/[address] LEROY -CARDIAC CATH 12/11/[address] LEROY. CONCLUSION: 1. No angiographically significant coronary artery disease. 2. Normal regional wall motion. 3. Normal global left ventricular systolic function with an ejection fraction of 65%. 4. Mild elevation of left ventricular end-diastolic pressure. Review of Systems Constitutional: chills, fever, malaise, weakness EENTM: no symptoms reported Respiratory: cough; No dyspnea on exertion, No short of breath Cardiovascular: No chest pain, No palpitations Gastrointestinal: No abdominal pain; constipation; No nausea, No vomiting Genitourinary: see HPI, incontinence Musculoskeletal: back pain, joint pain Skin: no symptoms reported Psychiatric/Neurological: No Symptoms Reported Physical Exam Physical Exam Vital Signs Vital Signs - First Documented 04/17/22 04/17/22 04/18/22 20:05 23:06 07:42 Temp 37.8 Pulse 133 Resp 20 B/P (MAP) 144/105 (118) Pulse Ox 93 O2 Delivery Room Air O2 Flow Rate 0.00 FiO2 21 Capillary Refill : Less Than 3 Seconds Height, Weight, BMI Height: 5'5.00" Weight: 245lbs. 0.0oz. 111.114299pn; 43.73 BMI Method:Stated General Appearance: No Apparent Distress, Chronically ill, Obese HEENT: PERRL/EOMI, Moist Mucous Membranes Neck: Normal Inspection, Supple Respiratory: Lungs Clear, No Accessory Muscle Use, No Respiratory Distress Cardiovascular: Regular Rate, Rhythm, No JVD, No Murmur Gastrointestinal: Normal Bowel Sounds, Non Tender, Soft Extremity: Normal Capillary Refill, No Calf Tenderness, No Pedal Edema, Swelling (around right knee) Neurologic/Psychiatric: Alert, Oriented x3, Normal Mood/Affect; No Aphasia, No Facial Droop Results Results/Procedures Labs Laboratory Tests 04/17/22 20:06 04/18/22 05:40 Patient resulted labs reviewed. Imaging: Reviewed Imaging Report Imaging [facility] [place] NAME: MICHEL PR[facility]CE [facility] REC#: [id number] PT STATUS: ADM IN : 1945 PHYSICIAN: REECE FUENTES DO ADMIT DATE: 04/17/22 Signed Date of Exam:04/17/22 CHEST 1 VIEW, AP/PA ONLY INDICATION: Fever EXAMINATION: Chest 04/17/2022 COMPARISON: 01/16/2022 FINDINGS: There is a possible infiltrate at the left lung base with adjacent pleural fluid. Right lung clear. There is cardiomegaly. Pulmonary vasculature normal. No pneumothorax. IMPRESSION: 1. Suspected left base infiltrate with small adjacent effusion. Dictated by: Dictated on workstation # [id number] Dict: 04/17/[id number] Trans: 04/17/222244 [facility] [phone] Interpreted by: ISAK MANRIQUE MD Electronically signed by: ISAK MANRIQUE MD 04/17/222 Assessment/Plan Admission Diagnosis Sepsis Admission Status: Inpatient Order (span 2 midnights) Reason for Inpatient Admission: see below Assessment and Plan Sepsis UTI CAP-LLL Tachy with fever on arrival UA consistent with UTI and LLL infiltrate on CXR Continue on abx Await cultures and sensitivities HTN A-fib Continue home meds Postpolio syndrome Arthritis PT/OT Continue home hydrocodone Hypothyroidism Continue home synthroid when med rec done DVT ppx: Eliquis Diagnosis/Problems Diagnosis/Problems (1) CAP (community acquired pneumonia) (2) Essential (primary) hypertension (3) HLD (hyperlipidemia) (4) Hypothyroidism (5) Post-polio syndrome (6) Post-poliomyelitis muscular atrophy (7) LLL pneumonia Status: Acute (8) Atrial fibrillation with rapid ventricular response Status: Acute (9) UTI (urinary tract infection) Status: Acute (10) Sepsis Status: Acute (11) HTN (hypertension) Status: Acute (12) Morbid obesity Status: Chronic CHEMA CUENCA MD Apr 18, 2022 09:36
[2022-04-18] MEDS ORDERED: PANTOPRAZOLE 40 MG (PROTONIX) TAB PO NR (10:00)
[2022-04-18] MEDS: APIXABAN 5 MG (ELIQUIS) TABLET PO SCH ×2 (10:04→20:04)
[2022-04-18] MEDS ORDERED: OXYM30SP25 NSEACH (11:39)
[2022-04-18] MEDS ORDERED: ACET-2650 PO (11:39)
[2022-04-18] MEDS ORDERED: DIPH25TA65 PO (11:39)
[2022-04-18] MEDS ORDERED: TOLT4CAP26 PO (11:39)
[2022-04-18] MEDS ORDERED: MAGN1TAB31 PO (11:39)
[2022-04-18] MEDS ORDERED: ACET-3075 PO (11:39)
[2022-04-18] MEDS ORDERED: SODI30SP2 NSEACH (11:39)
[2022-04-18] MEDS ORDERED: DOCUSATE SODIUM 100 MG (COLACE) CAP PO NR (13:30)
[2022-04-18] MEDS ORDERED: SALINE NASAL SPRAY (OCEAN) 45 ML BTL NS PRN (15:00)
[2022-04-18] MEDS: DOCUSATE SODIUM 100 MG (COLACE) CAP PO SCH (20:04)
[2022-04-19 04:00] VITALS: BP 138/72
[2022-04-19] MEDS: PIPERACILLIN SODIUM/TAZOBACTAM 4.5 GM in NS (IVPB) 100 ML IV SCH ×3 (04:56→20:39)
[2022-04-19] MEDS: LEVOTHYROXINE 25 MCG (LEVOTHROID) TAB PO SCH (05:44)
[2022-04-19] MEDS: LEVOTHYROXINE 100 MCG (LEVOTHROID) TAB PO SCH (05:44)
[2022-04-19 06:09] LABS: BASOPHILS # (AUTO) 0.1 10^3/uL (0.0-0.1); BASOPHILS % (AUTO) 1 % (0-10); EOSINOPHILS # (AUTO) 0.5 10^3/uL (0.0-0.3); EOSINOPHILS % (AUTO) 4 % (0-10); HEMATOCRIT 38 % (35-52); LYMPHOCYTES # (AUTO) 1.3 10^3/uL (1.0-4.0); LYMPHOCYTES % (AUTO) 12 % (12-44); MEAN CORPUSCULAR HEMOGLOBIN 28 pg (25-34); MEAN CORPUSCULAR HGB CONC 32 g/dL (32-36); MEAN CORPUSCULAR VOLUME 89 fL (80-99); MEAN PLATELET VOLUME 10.1 fL (9.0-12.2); MONOCYTES # (AUTO) 0.8 10^3/uL (0.0-1.0); MONOCYTES % (AUTO) 7 % (0-12); NEUTROPHILS % (AUTO) 76 % (42-75); PLATELET COUNT 313 10^3/uL (130-400); WHITE BLOOD COUNT 10.6 10^3/uL (4.3-11.0)
[2022-04-19 06:24] LABS: ALBUMIN 3.4 GM/DL (3.2-4.5); POTASSIUM 3.6 MMOL/L (3.6-5.0)
[2022-04-19 06:27] LABS: TOTAL PROTEIN 6.9 GM/DL (6.4-8.2)
[2022-04-19 06:28] LABS: BILIRUBIN,TOTAL 0.5 MG/DL (0.1-1.0)
[2022-04-19 06:30] LABS: CREATININE SERUM 0.71 MG/DL (0.60-1.30)
[2022-04-19 07:37] VITALS: BP 136/79
[2022-04-19] MEDS ORDERED: NON-FORMULARY MEDICATION 1 EA EA (Levothyroxine Sodium (Synthroid) 200 MCG) PO SCH (09:00)
[2022-04-19] MEDS ORDERED: NON-FORMULARY MEDICATION 1 EA EA (Tolterodine Tartrate (Tolterodine Tartrate ER) 4 MG) PO SCH (09:00)
[2022-04-19] MEDS ORDERED: SENNA W/DOCUSATE (SENOKOT S) TABLET PO PRN (09:30)
[2022-04-19] MEDS: LACTATED RINGERS 1,000 ML IV SCH ×2 (09:38→12:56)
[2022-04-19] MEDS: APIXABAN 5 MG (ELIQUIS) TABLET PO SCH ×2 (09:39→20:39)
[2022-04-19] MEDS: TOLTERODINE LA 2 MG (DETROL LA) CAP PO SCH (09:39)
[2022-04-19] MEDS: PANTOPRAZOLE 40 MG (PROTONIX) TAB PO SCH (09:39)
[2022-04-19] MEDS: meTOproloL SUCCINATE 50 MG (TOPROL XL) TAB PO SCH (09:39)
[2022-04-19] MEDS: DOCUSATE SODIUM 100 MG (COLACE) CAP PO SCH ×2 (09:40→20:39)
--- NOTE | 2022-04-19 10:19 | Progress Note - Hospitalist ---
Subjective HPI/CC On Admission Date Seen by Provider: Apr 19, 2022 Patient is 76-year-old female with past medical history of postpolio syndrome, Hypothyroidism, hypertension, hyperlipidemia, osteoarthritis who presented to the emergency department due to weakness and fevers. She did complain of a little bit of a cough but no shortness of breath or chest pain. She complained to the emergency room of back pain but complained to me of right knee pain. She did complain of some urinary incontinence but that is chronic for her. She reported having myalgias as well. In the emergency room she was found to be septic from a urinary tract infection with possible infiltrate on chest x-ray. She was admitted for further management. This morning she reports feeling slightly better and would like her catheter out. She also complains of her right knee pain but states that she follows with 5 different orthopedic surgeons for that and would just like her home pain medication restarted. Subjective/Events-last exam Pt reports doing well physically. She is frustrated about her home meds. She states she did not get her synthroid this morning (it is documented she did though she is adamant she did not). She also was concerned about her BP medications not being her normal meds. We discussed reason for decreased antihyp ertensives (normal BP). She expressed understanding and then requested Miralax for constipation. Focused Exam Lactate Level 04/17/22 20:20: Lactic Acid Level 1.60 Objective Exam Vital Signs Vital Signs Date Time Temp Pulse Resp B/P (MAP) Pulse Ox O2 Delivery O2 Flow Rate FiO2 04/19/22 07:37 37.2 81 18 136/79 (98) 95 Room Air 04/18/22 20:04 0.00 04/17/22 23:06 21 Capillary Refill : Less Than 3 Seconds General Appearance: No Apparent Distress, Obese Respiratory: Lungs Clear, No Respiratory Distress Cardiovascular: Regular Rate, Rhythm, No Murmur Gastrointestinal: Normal Bowel Sounds, Non Tender, Soft Neurologic/Psychiatric: Alert, Oriented x3 Results/Procedures Lab Laboratory Tests 04/19/22 05:53 Patient resulted labs reviewed. Imaging: Reviewed Imaging Report Assessment/Plan Assessment and Plan Assess & Plan/Chief Complaint Sepsis UTI CAP-LLL UA consistent with UTI and LLL infiltrate on CXR Continue on abx Culture with e coli in urine and blood Await sensitivities HTN A-fib Continue home meds as able BP normal so lower than normal dose given Postpolio syndrome Arthritis PT Continue home hydrocodone Hypothyroidism Continue home synthroid RN to clarify about AM dose DVT ppx: Eliquis Diagnosis/Problems Diagnosis/Problems (1) CAP (community acquired pneumonia) (2) Essential (primary) hypertension (3) HLD (hyperlipidemia) (4) Hypothyroidism (5) Post-polio syndrome (6) Post-poliomyelitis muscular atrophy (7) LLL pneumonia Status: Acute (8) Atrial fibrillation with rapid ventricular response Status: Acute (9) UTI (urinary tract infection) Status: Acute (10) Sepsis Status: Acute (11) HTN (hypertension) Status: Acute (12) Morbid obesity Status: Chronic CHEMA CUENCA MD Apr 19, 2022 10:19
--- NOTE | 2022-04-19 11:10 | Physical Therapy Progress Note ---
Therapy Progress Note Order for PT evaluation received. Patient adamantly and angrily refuses therapy. Patient states she isn't going to do it because there isn't any point in doing it because 5 orthopedic doctors have told her she is "S-O-L". Patient cannot be redirected or encouraged to participate. ROD WU PT Apr 19, 2022 11:10
[2022-04-19 11:59] VITALS: BP 97/75
[2022-04-19] MEDS: polyethylene glycoL POWDER 17 GM (MIRALAX) PACK PO PRN ×2 (13:28→20:44)
[2022-04-19 15:38] VITALS: BP 157/79
[2022-04-19 19:32] VITALS: BP 171/71
[2022-04-20] VITALS: BP 154/86
[2022-04-20] MEDS: LACTATED RINGERS 1,000 ML IV SCH (02:20)
[2022-04-20] MEDS: PIPERACILLIN SODIUM/TAZOBACTAM 4.5 GM in NS (IVPB) 100 ML IV SCH ×2 (03:12→11:11)
[2022-04-20 05:30] VITALS: BP 154/71
[2022-04-20] MEDS: LEVOTHYROXINE 25 MCG (LEVOTHROID) TAB PO SCH (05:30)
[2022-04-20] MEDS: LEVOTHYROXINE 100 MCG (LEVOTHROID) TAB PO SCH (05:30)
[2022-04-20 05:44] LABS: BASOPHILS # (AUTO) 0.1 10^3/uL (0.0-0.1); BASOPHILS % (AUTO) 1 % (0-10); EOSINOPHILS # (AUTO) 0.3 10^3/uL (0.0-0.3); EOSINOPHILS % (AUTO) 3 % (0-10); HEMATOCRIT 35 % (35-52); HEMOGLOBIN 10.9 g/dL (11.5-16.0); LYMPHOCYTES # (AUTO) 1.3 10^3/uL (1.0-4.0); LYMPHOCYTES % (AUTO) 15 % (12-44); MEAN CORPUSCULAR HEMOGLOBIN 28 pg (25-34); MEAN CORPUSCULAR HGB CONC 31 g/dL (32-36); MEAN CORPUSCULAR VOLUME 91 fL (80-99); MEAN PLATELET VOLUME 10.3 fL (9.0-12.2); MONOCYTES # (AUTO) 0.8 10^3/uL (0.0-1.0); MONOCYTES % (AUTO) 9 % (0-12); NEUTROPHILS # (AUTO) 6.2 10^3/uL (1.8-7.8); NEUTROPHILS % (AUTO) 72 % (42-75); PLATELET COUNT 311 10^3/uL (130-400); WHITE BLOOD COUNT 8.6 10^3/uL (4.3-11.0)
[2022-04-20 06:06] LABS: BILIRUBIN,TOTAL 0.7 MG/DL (0.1-1.0); CALCIUM 8.8 MG/DL (8.5-10.1); CREATININE SERUM 0.65 MG/DL (0.60-1.30); POTASSIUM 3.7 MMOL/L (3.6-5.0); TOTAL PROTEIN 6.1 GM/DL (6.4-8.2)
[2022-04-20 07:20] VITALS: BP 151/76
[2022-04-20] MEDS: meTOproloL SUCCINATE 50 MG (TOPROL XL) TAB PO SCH (09:32)
[2022-04-20] MEDS: APIXABAN 5 MG (ELIQUIS) TABLET PO SCH (09:32)
[2022-04-20] MEDS: DOCUSATE SODIUM 100 MG (COLACE) CAP PO SCH (09:32)
[2022-04-20] MEDS: PANTOPRAZOLE 40 MG (PROTONIX) TAB PO SCH (09:32)
[2022-04-20] MEDS: TOLTERODINE LA 2 MG (DETROL LA) CAP PO SCH (09:33)
--- NOTE | 2022-04-20 10:12 | Discharge Inst-Simple/Standard ---
Discharge Inst-Standard Discharge Medications New, Converted or Re-Newed RX: Transmitted to Pharmacy Patient Instructions/Follow Up Plan of Care/Instructions/FU: Please continue to take your medications as written. Please follow up with your primary care doctor to follow up this hospital stay. Activity as Tolerated: Yes Discharge Diet: Cardiac Diet Return to The Hospital For: Chest pain, shortness of breath, fever, weakness, if you feel you are getting worse. CHEMA CUENCA MD Apr 20, 2022 10:12
[2022-04-20] MEDS ORDERED: AMOX1TAB12 PO (10:16)
--- NOTE | 2022-04-20 10:32 | Physical Therapy Evaluation ---
PT Evaluation-General Medical Diagnosis Admission Date Apr 17, 2022 at 21:00 Medical Diagnosis: sepsis/UTI/pneumonia/A-fib with RVR Onset Date: Apr 17, 2022 Therapy Diagnosis Therapy Diagnosis: debility/weakness Height/Weight Height (Feet): 5 Height (Inches): 5.00 Weight (Pounds): 245 Weight (Ounces): 0.0 Precautions Precautions/Isolations: Fall Prevention, Standard Precautions Referral Physician: Loreto Reason for Referral: Evaluation/Treatment Medical History Pertinent Medical History: Atrial Fib, Arthritis, GERD, HTN, Post Polio Syndrome History of Falls (past yr): Yes Prior Surgery (last 100 days): No Current History EMS secondary to LBP and fever Reviewed History: Yes Social History Home: Single Level Current Living Status: Entry Into Home: Level Entry Prior Prior Level of Function SCALE: Activities may be completed with or without assistive devices. 6-Scmeukhaqv-eydizgm completes the activity by him/herself with no assistance from a helper. 5-Set-up or Clean-up Assistance-helper sets up or cleans up; patient completes activity. [place] assists only prior to or following the activity. 4-Supervision or Touching Assistance-helper provides verbal cues and/or touching/steadying and/or contact guard assistance as patient completes a ctivity. Assistance may be provided throughout the activity or intermittently. 3-Partial/Moderate Assistance-helper does LESS THAN HALF the effort. [place] lifts, holds or supports trunk or limbs, but provides less than half the effort. 2-Substantial/Maximal Assistance-helper does MORE THAN HALF the effort. [place] lifts or holds trunk or limbs and provides more than half the effort. 6-Araajizqf-txyrif does ALL the effort. Patient does none of the effort to complete the activity. Or, the assistance of 2 or more helpers is required for the patient to complete the activity. If activity was not attempted, code reason: 7-Patient Refused. 9-Not Applicable-not attempted and the patient did not perform the activity before the current illness, exacerbation or injury. 10-Not Attempted due to Environmental Limitations-(lack of equipment, weather restraints, etc.). 88-Not Attempted due to Medical Conditions or Safety Concerns. Bed Mobility: 6 (sleep number bed with moveable bed frame) Transfers (B,C,W/C): 6 Gait: 6 Stairs: 9 Wheelchair Mobility: 6 Stairs: Not Applicalbe Prior Devices Use: Manual wheelchair, Motorized scooter, Walker PT Evaluation-Current Subjective Patient reports she has caregivers during the week and does fine at home. She initially declined PT, however agrees to assessment. Objective Patient Orientation: Normal For Age Attachments: IV ROM/Strength ROM Lower Extremities bilateral LE WFL Strength Lower Extremities right LE 3-/5 grossly(old femur fracture, quad tear); left LE 4/5 grossly all planes Integumentary/Posture Integumentary refer to nursing notes Bowel Incontinence: No Bladder Incontinence: No Posture WFL Neuromuscular (Tone, Coordination, Reflexes) grossly intact Sensory Vision: Neglect Left Hearing: Impaired Transfers Lying to Sitting/Side of Bed(Q: 6 Sit to Stand (QC): 6 Chair/Hjn-sp-Knsnu Xfer(QC): 6 Toilet Transfer (QC): 6 (toilets self independently) Gait Mode of Locomotion: Both Anticipated Mode of Locomotion: Both Walk 10 feet (QC): 6 Walk 50 ft with 2 Turns(QC): 9 Walk 150 ft (QC): 9 Distance: 15' Gait Assistive Device: FWW Comments/Gait Description functional gait sequence with noted right LE slight lag and ER Balance Sitting Static: Normal Sitting Dynamic: Normal Standing Static: Normal Standing Dynamic: Normal Assessment/Needs Patient is currently at independent PLOF with gross motor skills and does not require skilled PT intervention. Patient did decline continued PT intervention. Rehab Potential: Fair PT Plan Treatment/Plan Treatment Plan: Discontinue PT, goals met Treatment Duration: Apr 20, 2022 Frequency: 1 time per week Estimated Hrs Per Day: .25 hour per day Patient and/or Family Agrees t: Yes Time/GCodes Time In: 931 Time Out: 946 Total Billed Treatment Time: 15 Total Billed Treatment 1 visit EVModC 15 min WILMER SCHMIDT PT Apr 20, 2022 10:32
[2022-04-20 11:15] VITALS: BP 148/86
== END 2022-04-20 15:40 | disposition home or self-care (01) | DRG 871 ==
LOC: EDUNIT# 19:59 → ER 20:01 → 4TH 21:00
PROVIDERS: ADMIT Internal Medicine; ATTEND Internal Medicine
DX: A41.51 Sepsis due to Escherichia coli [E. coli] (principal); J18.9 Pneumonia, unspecified organism; N39.0 Urinary tract infection, site not specified; I38 Endocarditis, valve unspecified; Z68.41 Body mass index [BMI] 40.0-44.9, adult; I48.91 Unspecified atrial fibrillation; I10 Essential (primary) hypertension; E78.5 Hyperlipidemia, unspecified; M19.91 Primary osteoarthritis, unspecified site; E66.01 Morbid (severe) obesity due to excess calories; E03.9 Hypothyroidism, unspecified; H91.93 Unspecified hearing loss, bilateral; G14 Postpolio syndrome; M25.561 Pain in right knee; H54.7 Unspecified visual loss; K21.9 Gastro-esophageal reflux disease without esophagitis; R32 Unspecified urinary incontinence; K59.00 Constipation, unspecified; Z87.891 Personal history of nicotine dependence; Z85.3 Personal history of malignant neoplasm of breast; Z97.4 Presence of external hearing-aid; Z79.01 Long term (current) use of anticoagulants; Z88.1 Allergy status to other antibiotic agents; Z82.49 Family history of ischemic heart disease and other diseases of the circulatory system; Z20.822 Contact with and (suspected) exposure to COVID-19
CPT/HCPCS: 36415; 51702; 71045; 80053; 81000; 82150; 83605; 83735; 84145; 85007; 85025; 85027; 85610; 85730; 87040; 87077; 87088; 87186; 87636; 93005; 93041; 94760

== ENCOUNTER 2022-04-28 22:38 | Emergency (ER) | payer MEDICARE ==
[~2022-04-28] VITALS: Ht 162.5 cm; Wt 115.9 kg
[~2022-04-28 22:38] MED LIST changes: +ACET-2650 PO; +ACET-3075 PO; +DIPH25TA65 PO; +MAGN1TAB31 PO; +OXYM30SP25 NSEACH; +SODI30SP2 NSEACH; +TOLT4CAP26 PO
[2022-04-28 23:09] LABS: BASOPHILS # (AUTO) 0.1 10^3/uL (0.0-0.1); BASOPHILS % (AUTO) 1 % (0-10); EOSINOPHILS % (AUTO) 0 % (0-10); HEMATOCRIT 41 % (35-52); HEMOGLOBIN 13.1 g/dL (11.5-16.0); LYMPHOCYTES # (AUTO) 2.2 10^3/uL (1.0-4.0); LYMPHOCYTES % (AUTO) 22 % (12-44); MEAN CORPUSCULAR HEMOGLOBIN 28 pg (25-34); MEAN CORPUSCULAR HGB CONC 32 g/dL (32-36); MEAN CORPUSCULAR VOLUME 87 fL (80-99); MEAN PLATELET VOLUME 9.4 fL (9.0-12.2); MONOCYTES # (AUTO) 0.5 10^3/uL (0.0-1.0); MONOCYTES % (AUTO) 5 % (0-12); NEUTROPHILS # (AUTO) 7.2 10^3/uL (1.8-7.8); NEUTROPHILS % (AUTO) 73 % (42-75); PLATELET COUNT 523 10^3/uL (130-400)
[2022-04-28 23:20] LABS: ALBUMIN 4.1 GM/DL (3.2-4.5); POTASSIUM 3.9 MMOL/L (3.6-5.0)
[2022-04-28 23:21] LABS: CALCIUM 9.6 MG/DL (8.5-10.1)
[2022-04-28 23:22] LABS: TOTAL PROTEIN 8.3 GM/DL (6.4-8.2)
[2022-04-28 23:23] LABS: INR 1.2 (0.8-1.4); PROTHROMBIN TIME PATIENT 15.5 SEC (12.2-14.7)
[2022-04-28 23:24] LABS: BILIRUBIN,TOTAL 0.3 MG/DL (0.1-1.0)
[2022-04-28 23:26] LABS: CREATININE SERUM 0.85 MG/DL (0.60-1.30)
[2022-04-28 23:28] LABS: MAGNESIUM 2.1 MG/DL (1.6-2.4)
--- NOTE | 2022-04-29 00:40 | ED Respiratory ---
General Chief Complaint: Respiratory Problems Stated Complaint: SOB Nursing Triage Note: pt states it is hard to get a breath, family states pt has increased weakness, chest tightness and shortness of breath all day today. pt says she felt like a fever broke a few hours ago Source: patient Exam Limitations: no limitations Allergies and Home Medications Allergies Coded Allergies: tetracycline (Unverified Allergy, Mild, HEADACHE, 06/29/20) cefdinir (Unverified Adverse Reaction, Intermediate, DIARRHEA, 06/29/20) Patient Home Medication List Acetaminophen (Tylenol Arthritis) 650 Mg Tablet.er, 650-1,300 MG PO Q8H PRN for PAIN-MILD (1-4), (Reported) Entered as Reported by: HIMA JEFFERSON on 04/18/22 1139 Acetaminophen/Diphenhydramine (Tylenol Pm Ex-Strength Caplet) 500 Mg-25 Mg Tablet, 1-2 EACH PO HS PRN for SLEEP, (Reported) Entered as Reported by: HIMA JEFFERSON on 04/18/22 1139 Amoxicillin/Potassium Clav (Amox Tr-K Clv 875-125 mg Tab) 875 Mg-125 Mg Tablet, 1 EACH PO BID Prescribed by: CHEMA CUENCA on 04/20/22 1016 Apixaban (Eliquis) 5 Mg Tablet, 5 MG PO BID, (Reported) Entered as Reported by: RAYMOND BUI on 06/01/16 0832 Ascorbic Acid (C-1000 with Mercy Hips) 1,000 Mg Tablet, 1,000 MG PO 1200, (Reported) Entered as Reported by: HIMA JEFFERSON on 01/16/22 1457 Calcium Citrate/Vitamin D3 (Calcium Citrate - Vit D Tablet) 315 Mg Calcium-5 Mcg (200 Unit) Tablet, 1 TAB PO 1200, (Reported) Entered as Reported by: YOAN RIVER on 03/23/16 1615 Diltiazem HCl (Diltiazem 24Hr ER) 240 Mg Cap.er.24h, 240 MG PO BID, (Reported) Entered as Reported by: HIMA JEFFERSON on 01/16/22 1457 Diphenhydramine HCl (Benadryl Allergy) 25 Mg Tablet, 25-50 MG PO Q6H PRN for ALLERGY SYMPTOMS, (Reported) Entered as Reported by: HIMA JEFFERSON on 04/18/22 1139 Hydrocodone/Acetaminophen (Hydrocodone-Acetamin 10-325 mg) 10 Mg-325 Mg Tablet, 1 EA PO BID PRN for PAIN-MODERATE (5-7), (Reported) Entered as Reported by: HIMA JEFFERSON on 01/16/22 1457 Levothyroxine Sodium (Synthroid) 200 Mcg Tablet, 200 MCG PO DAILY, (Reported) Entered as Reported by: NILES SEAMAN on 09/14/15 003 Levothyroxine Sodium (Synthroid) 25 Mcg Tablet, 25 MCG PO DAILY, (Reported) Entered as Reported by: NILES SEAMAN on 09/14/15 003 Magnesium Carbonate/Al Hydrox (Gaviscon Es Tablet Chew) 105 Mg-160 Mg Tab.chew, 1-2 EACH PO QID PRN for INDIGESTION, (Reported) Entered as Reported by: HIMA JEFFERSON on 04/18/22 113 Magnesium Oxide (Magnesium) 250 Mg Tablet, 250 MG PO 1200, (Reported) Entered as Reported by: YOAN RIVER on 04/13/16 1317 Metoprolol Succinate (Metoprolol Succinate) 50 Mg Tab.er.24h, 50 MG PO DAILY, (Reported) Entered as Reported by: SERAFIN ALCARAZ on 05/02/16 0950 Metoprolol Succinate (Metoprolol Succinate) 25 Mg Tab.er.24h, 25 MG PO HS, (Reported) Entered as Reported by: YOAN RIVER on 12/11/17 1352 Oxymetazoline HCl (Afrin) 0.05 % Lysite, 2-3 SPRAYS NSEACH UD PRN for CONGESTION, (Reported) Entered as Reported by: HIMA JEFFERSON on 04/18/22 113 Pantoprazole Sodium (Pantoprazole Sodium) 40 Mg Tablet.dr, 40 MG PO DAILY, (Reported) Entered as Reported by: NILES SEAMAN on 09/14/15 003 Sodium Chloride (Saline Nasal Lysite) 0.65 % Lysite, 2 SPRAYS NSEACH UD PRN for CONGESTION/DRY NOSE, (Reported) Entered as Reported by: HIMA JEFFERSON on 04/18/22 113 Tolterodine Tartrate (Tolterodine Tartrate ER) 4 Mg Cap.er.24h, 4 MG PO DAILY, (Reported) Entered as Reported by: HIMA JEFFERSON on 04/18/22 113 Vitamin B Complex (B Complex) 1 Each Tablet, 1 TAB PO 1200, (Reported) Entered as Reported by: YOAN RIVER on 03/23/16 1617 Past Bghnktb-Wlnysm-Oqajdr Hx Patient Social History Smoking Status: Former Smoker Substance use?: No Alcohol Use?: Yes Alcohol type: Hard Liquor Alcohol Frequency: Daily Pt feels they are or have been: No Immunizations Up To Date Tetanus Booster (TDap): Less than 5yrs PED Vaccines UTD: Yes First/Initial COVID19 Vaccinat: 2020 Second COVID19 Vaccination Woo: 2020 Third COVID19 Vaccination Date: 2021 Seasonal Allergies Seasonal Allergies: Yes (took allergy shots for 5 years) Past Medical History Surgery/Hospitalization HX: Cellulitis/Sepsis 12/2021 Surgeries: Yes (ANKLE X2,UMBIL HERNIA, ROTATOR CUFF, R BREAST LUMPECTOMY) Abdominal, Breast, Cardiac, Gallbladder, Orthopedic Respiratory: No Currently Using CPAP: No Currently Using BIPAP: No Cardiac: Yes (RIGHT LEG MORE SWOLLEN THAN LEFT CHRONICALLY) Atrial Fibrillation, Chronic Edema/Swelling, Hypertension, Valvular Heart Disease Neurological: Yes (POLIO--RIGHT LEG AFFECTED) Reproductive Disorders: No Female Reproductive Disorders: Denies 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 Sexually Transmitted Disease: No HIV/AIDS: No Genitourinary: No Gastrointestinal: Yes Abdominal Hernia, Gastroesophageal Reflux, Gall Bladder Disease Musculoskeletal: Yes (R FEMUR FRACTURE-NO SURG; MULTIPLE ORTHO SURGERIES;R LEG POLIO) Arthritis Endocrine: Yes (MORBID OBESITY) Hypothyroidsim HEENT: Yes (GLASSES) Cataract Hearing Impairment: Hard of Hearing, Bilateral Hearing Aide Cancer: Yes (lumpectomy in 2010 and radiation 28 days) Breast Did You Recieve Any Treatments: Yes What Type of Treatment Did You: Radiation, Surgical Intervention Psychosocial: No Integumentary: Yes (CELLULITIS OF LEG 12/2021) Blood Disorders: No Adverse Reaction/Blood Tranf: No (N/A) Family Medical History Cardiovascular disease 19 MOTHER, Onset:79 ( at 79) G8 SISTER, Onset:75 (alive) Completed stroke 19 FATHER, Onset:77 ( at 77 with stroke) Gastroenteritis G8 SISTER, Onset:64 (alive) CHRONIC RIGHT KNEE PAIN PAST SURGICAL HISTORY: -LEFT CATARACT SURGERY 06/2020 -CHOLECYSTECTOMY -UMBILICAL HERNIA REPAIR -RIGHT BREAST LUMPECTOMY FOR CANCER 2010 -RIGHT ANKLE X 2 -RIGHT SHOULDER ROTATOR CUFF REPAIR -RIGHT KNEE SCOPE 04/[address] DOTSON -CARDIOVERSIONS FOR ATRIAL FIBRILLATION 12/25/2017 AND 01/22/[address] LEROY -CARDIAC CATH 12/11/[address] LEROY. CONCLUSION: 1. No angiographically significant coronary artery disease. 2. Normal regional wall motion. 3. Normal global left ventricular systolic function with an ejection fraction of 65%. 4. Mild elevation of left ventricular end-diastolic pressure. Physical Exam Vital Signs - First Documented 04/28/22 22:55 Temp 36.8 Pulse 90 Resp 22 B/P (MAP) 150/74 (99) Pulse Ox 95 O2 Delivery Room Air Capillary Refill : Less Than 3 Seconds Height: 5'5.00" Weight: 245lbs. 0.0oz. [id number]; 43.00 BMI Method:Stated Procedures/Interventions Suture Size: 4-0 Progress/Results/Core Measures Suspected Sepsis SIRS Temperature: Pulse: 90 Respiratory Rate: 22 Laboratory Tests 04/28/22 22:57: White Blood Count 10.0 Blood Pressure 150 /74 Mean: 99 Laboratory Tests 04/28/22 22:57: Creatinine 0.85, INR Comment 1.2, Platelet Count 523H, Total Bilirubin 0.3 Results/Orders Lab Results Laboratory Tests Test 04/28/22 22:57 04/28/22 23:01 Range/Units White Blood Count 10.0 4.3-11.0 10^3/uL Red Blood Count 4.67 3.80-5.11 10^6/uL Hemoglobin 13.1 11.5-16.0 g/dL Hematocrit 41 35-52 % Mean Corpuscular Volume 87 80-99 fL Mean Corpuscular Hemoglobin 28 25-34 pg Mean Corpuscular Hemoglobin Concent 32 32-36 g/dL Red Cell Distribution Width 14.6 H 10.0-14.5 % Platelet Count 523 H 130-400 10^3/uL Mean Platelet Volume 9.4 9.0-12.2 fL Immature Granulocyte % (Auto) 0 % Neutrophils (%) (Auto) 73 42-75 % Lymphocytes (%) (Auto) 22 12-44 % Monocytes (%) (Auto) 5 0-12 % Eosinophils (%) (Auto) 0 0-10 % Basophils (%) (Auto) 1 0-10 % Neutrophils # (Auto) 7.2 1.8-7.8 10^3/uL Lymphocytes # (Auto) 2.2 1.0-4.0 10^3/uL Monocytes # (Auto) 0.5 0.0-1.0 10^3/uL Eosinophils # (Auto) 0.0 0.0-0.3 10^3/uL Basophils # (Auto) 0.1 0.0-0.1 10^3/uL Immature Granulocyte # (Auto) 0.0 0.0-0.1 10^3/uL Prothrombin Time 15.5 H 12.2-14.7 SEC INR Comment 1.2 0.8-1.4 Activated Partial Thromboplast Time 34 24-35 SEC Sodium Level 133 L 135-145 MMOL/L Potassium Level 3.9 3.6-5.0 MMOL/L Chloride Level 99 98-107 MMOL/L Carbon Dioxide Level 23 21-32 MMOL/L Anion Gap 11 5-14 MMOL/L Blood Urea Nitrogen 9 7-18 MG/DL Creatinine 0.85 0.60-1.30 MG/DL Estimat Glomerular Filtration Rate 72 BUN/Creatinine Ratio 11 Glucose Level 123 H 70-105 MG/DL Calcium Level 9.6 8.5-10.1 MG/DL Corrected Calcium 9.5 8.5-10.1 MG/DL Magnesium Level 2.1 1.6-2.4 MG/DL Total Bilirubin 0.3 0.1-1.0 MG/DL Aspartate Amino Transf (AST/SGOT) 29 5-34 U/L Alanine Aminotransferase (ALT/SGPT) 31 0-55 U/L Alkaline Phosphatase 89 40-136 U/L Myoglobin 21.9 10.0-92.0 NG/ML Troponin I < 0.028 <0.028 NG/ML C-Reactive Protein High Sensitivity 0.32 0.00-0.50 MG/DL B-Type Natriuretic Peptide 146.3 H <100.0 PG/ML Total Protein 8.3 H 6.4-8.2 GM/DL Albumin 4.1 3.2-4.5 GM/DL Influenza Type A (RT-PCR) Not Detected Not Detecte Influenza Type B (RT-PCR) Not Detected Not Detecte SARS-CoV-2 RNA (RT-PCR) Not Detected Not Detecte My MUSA Kahn MD Cbc With Automated Diff (04/28/22 22:43) Magnesium (04/28/22 22:43) Chest 1 View, Ap/Pa Only (04/28/22:43) Ekg Tracing (04/28/22:43) Comprehensive Metabolic Panel (04/28/22:43) Myoglobin Serum (04/28/22 22:43) Protime With Inr (04/28/22:43) Partial Thromboplastin Time (04/28/22:43) O2 (04/28/22:43) Monitor-Rhythm Ecg Trace Only (04/28/22:43) Lipid Panel (04/29/22 06:00) Ed Iv/Invasive Line Start (04/28/22:43) Bnp Joie (04/28/22:43) Troponin I Joie (04/28/22:43) Hs C Reactive Protein (04/28/22:43) Covid 19 Inhouse Test (04/28/22:43) Influenza A And B By Pcr (04/28/22:43) Albuterol Inhaler (Albuterol) (04/29/22 02:00) Vital Signs/I&O 04/28/22 04/28/22 22:55 23:02 Temp 36.8 Pulse 90 Resp 22 B/P (MAP) 150/74 (99) Pulse Ox 95 O2 Delivery Room Air Room Air Capillary Refill : Less Than 3 Seconds Blood Pressure Mean: 99 Departure Impression Primary Impression: Shortness of breath Additional Impressions: Wheezing Postnasal drip Disposition: 01 HOME, SELF-CARE Condition: Stable Departure-Patient Inst. Decision time for Depature: 00:38 Referrals: LONNIE MCDONALD MD (PCP) Primary Care Physician KWAN MCNEIL APRN (Family) Primary Care Physician Patient Instructions: Wheezing Add. Discharge Instructions: You have some mild wheezing on your exam. This may be due to bronchitis or bronchospasm from allergies or postnasal drip. Use your inhaler 1 puff every 1-2 hours as needed for shortness of breath or wheezing. Use the spacer. Monitor your heart rate after using albuterol as it may increase heart rate. Try using a nasal steroid spray such as fluticasone (Flonase) 2 sprays in each nostril daily. Follow-up with your primary care provider in the near future. Return to the ER if you have worsening symptoms despite following these instructions. All discharge instructions reviewed with patient and/or family. Voiced understanding. MUSA ZHU MD Apr 29, 2022 00:40
[2022-04-29] MEDS ORDERED: RT-ALBUTEROL HFA 8.5 GM INHALER IH ONE ×2 (00:58→02:00)
[2022-04-29 01:04] VITALS: BP 148/84
--- NOTE | 2022-04-29 06:43 | Diagnostic Imaging Report ---
Indication: Chest pain. Comparison: 04/18/2022. Discussion: Single portable upright view of the chest was obtained. Elevated right hemidiaphragm is stable. Cardiomegaly is stable. Improved aeration of the lungs which could be due to a better inspiratory effort on today's exam though more likely this represents resolving edema or pneumonia. No new consolidation. No pleural fluid or pneumothorax. No osseous abnormality. Impression: 1. Stable cardiomegaly with improved aeration of the lungs. Dictated by: Dictated on workstation # [id number]
== END 2022-04-29 01:09 | disposition home or self-care (01) ==
LOC: EDUNIT# 22:38 → ER 22:39
DX: R06.02 Shortness of breath (principal); R06.2 Wheezing; R09.82 Postnasal drip; E66.01 Morbid (severe) obesity due to excess calories; Z87.891 Personal history of nicotine dependence; Z68.41 Body mass index [BMI] 40.0-44.9, adult; Z20.822 Contact with and (suspected) exposure to COVID-19
CPT/HCPCS: 36415; 71045; 80053; 83735; 83874; 83880; 84484; 85025; 85610; 85730; 86141; 87636; 93005; 93041

== ENCOUNTER 2022-05-31 09:01 | Emergency (ER) | payer MEDICARE ==
[~2022-05-31] VITALS: Ht 165.1 cm; Wt 116.1 kg
[2022-05-31 09:30] LABS: BASOPHILS % (AUTO) 1 % (0-10); EOSINOPHILS % (AUTO) 0 % (0-10); HEMATOCRIT 42 % (35-52); HEMOGLOBIN 13.9 g/dL (11.5-16.0); LYMPHOCYTES # (AUTO) 1.7 10^3/uL (1.0-4.0); LYMPHOCYTES % (AUTO) 22 % (12-44); MEAN CORPUSCULAR HEMOGLOBIN 28 pg (25-34); MEAN CORPUSCULAR HGB CONC 33 g/dL (32-36); MEAN CORPUSCULAR VOLUME 87 fL (80-99); MEAN PLATELET VOLUME 9.7 fL (9.0-12.2); MONOCYTES # (AUTO) 0.5 10^3/uL (0.0-1.0); MONOCYTES % (AUTO) 7 % (0-12); NEUTROPHILS # (AUTO) 5.3 10^3/uL (1.8-7.8); NEUTROPHILS % (AUTO) 70 % (42-75); PLATELET COUNT 457 10^3/uL (130-400); WHITE BLOOD COUNT 7.5 10^3/uL (4.3-11.0)
[2022-05-31 09:43] LABS: INR 1.2 (0.8-1.4); PROTHROMBIN TIME PATIENT 15.6 SEC (12.2-14.7)
[2022-05-31 09:52] LABS: ALBUMIN 4.3 GM/DL (3.2-4.5); BILIRUBIN,TOTAL 0.7 MG/DL (0.1-1.0); CALCIUM 10.2 MG/DL (8.5-10.1); CREATININE SERUM 0.71 MG/DL (0.60-1.30); MAGNESIUM 1.8 MG/DL (1.6-2.4); TOTAL PROTEIN 8.5 GM/DL (6.4-8.2)
--- NOTE | 2022-05-31 09:56 | Diagnostic Imaging Report ---
PATIENT HISTORY: Chest pain. TECHNIQUE: Single frontal view of the chest. COMPARISON: 04/28/2022 FINDINGS: The lung volumes are normal. No focal consolidation is seen. No large pleural effusion or pneumothorax is seen. The cardiomediastinal silhouette is mildly large but stable in size. There is aortic atherosclerosis. No acute osseous abnormality is seen. IMPRESSION: No acute pulmonary abnormality seen. Dictated by: Dictated on workstation # [id number]
--- NOTE | 2022-05-31 11:28 | ED Cough/URI ---
General Chief Complaint: Respiratory Problems Stated Complaint: SOB Nursing Triage Note: PT TO RM 9 VIA WC W C/O SOA SX LAST NIGHT. PT A&OX4. (MARYANNE OSCAR APRN) History of Present Illness Date Seen by Provider: May 31, 2022 Time Seen by Provider: 11:28 Initial Comments Patient reports that she has had shortness of breath since last night. Denies chest pain. Denies recent sick contacts that she is aware of. Denies fever or COVID. Denies nausea, vomiting, weakness or dizziness. Timing/Duration: yesterday Modifying Factors: Improves With Rest Associated Symptoms: shortness of breath (MARYANNE OSCAR APRN) Allergies and Home Medications Allergies Coded Allergies: tetracycline (Unverified Allergy, Mild, HEADACHE, 06/29/20) cefdinir (Unverified Adverse Reaction, Intermediate, DIARRHEA, 06/29/20) Patient Home Medication List Home Medication List Reviewed: Yes (MARYANNE OSCAR APRN) Acetaminophen (Tylenol Arthritis) 650 Mg Tablet.er, 650-1,300 MG PO Q8H PRN for PAIN-MILD (1-4), (Reported) Entered as Reported by: HIMA JEFFERSON on 04/18/22 1139 Acetaminophen/Diphenhydramine (Tylenol Pm Ex-Strength Caplet) 500 Mg-25 Mg Tablet, 1-2 EACH PO HS PRN for SLEEP, (Reported) Entered as Reported by: HIMA JEFFERSON on 04/18/22 1139 Amoxicillin/Potassium Clav (Amox Tr-K Clv 875-125 mg Tab) 875 Mg-125 Mg Tablet, 1 EACH PO BID Prescribed by: CHEMA CUENCA on 04/20/22 1016 Apixaban (Eliquis) 5 Mg Tablet, 5 MG PO BID, (Reported) Entered as Reported by: RAYMOND BUI on 06/01/16 0832 Ascorbic Acid (C-1000 with [place]) 1,000 Mg Tablet, 1,000 MG PO 1200, (Reported) Entered as Reported by: HIMA JEFFERSON on 01/16/22 1457 Calcium Citrate/Vitamin D3 (Calcium Citrate - Vit D Tablet) 315 Mg Calcium-5 Mcg (200 Unit) Tablet, 1 TAB PO 1200, (Reported) Entered as Reported by: YOAN RIVER on 03/23/16 1615 Diltiazem HCl (Diltiazem 24Hr ER) 240 Mg Cap.er.24h, 240 MG PO BID, (Reported) Entered as Reported by: HIMA JEFFERSON on 01/16/22 1457 Diphenhydramine HCl (Benadryl Allergy) 25 Mg Tablet, 25-50 MG PO Q6H PRN for ALLERGY SYMPTOMS, (Reported) Entered as Reported by: HIMA JEFFERSON on 04/18/22 1139 Hydrocodone/Acetaminophen (Hydrocodone-Acetamin 10-325 mg) 10 Mg-325 Mg Tablet, 1 EA PO BID PRN for PAIN-MODERATE (5-7), (Reported) Entered as Reported by: HIMA JEFFERSON on 01/16/22 1457 Levothyroxine Sodium (Synthroid) 200 Mcg Tablet, 200 MCG PO DAILY, (Reported) Entered as Reported by: NILES SEAMAN on 09/14/15 003 Levothyroxine Sodium (Synthroid) 25 Mcg Tablet, 25 MCG PO DAILY, (Reported) Entered as Reported by: NILES SEAMAN on 09/14/15 003 Magnesium Carbonate/Al Hydrox (Gaviscon Es Tablet Chew) 105 Mg-160 Mg Tab.chew, 1-2 EACH PO QID PRN for INDIGESTION, (Reported) Entered as Reported by: HIMA JEFFERSON on 04/18/22 1139 Magnesium Oxide (Magnesium) 250 Mg Tablet, 250 MG PO 1200, (Reported) Entered as Reported by: YOAN RIVER on 04/13/16 1317 Metoprolol Succinate (Metoprolol Succinate) 50 Mg Tab.er.24h, 50 MG PO DAILY, (Reported) Entered as Reported by: SERAFIN ALCARAZ on 05/02/16 0950 Metoprolol Succinate (Metoprolol Succinate) 25 Mg Tab.er.24h, 25 MG PO HS, (Reported) Entered as Reported by: YOAN RIVER on 12/11/17 1352 Oxymetazoline HCl (Afrin) 0.05 % [place], 2-3 SPRAYS NSEACH UD PRN for CONGESTION, (Reported) Entered as Reported by: HIMA JEFFERSON on 04/18/22 1139 Pantoprazole Sodium (Pantoprazole Sodium) 40 Mg Tablet.dr, 40 MG PO DAILY, (Reported) Entered as Reported by: NILES SEAMAN on 09/14/15 0032 Sodium Chloride (Saline Nasal [place]) 0.65 % [place], 2 SPRAYS NSEACH UD PRN for CO NGESTION/DRY NOSE, (Reported) Entered as Reported by: HIMA JEFFERSON on 04/18/22 1139 Sulfamethoxazole/Trimethoprim (Bactrim Ds Tablet) 800 Mg-160 Mg Tablet, 1 EACH PO BID Prescribed by: Maryanne Oscar on 05/31/22 1223 Tolterodine Tartrate (Tolterodine Tartrate ER) 4 Mg Cap.er.24h, 4 MG PO DAILY, (Reported) Entered as Reported by: HIMA JEFFERSON on 04/18/22 1139 Vitamin B Complex (B Complex) 1 Each Tablet, 1 TAB PO 1200, (Reported) Entered as Reported by: YOAN RIVER on 03/23/16 1617 Review of Systems Review of Systems Constitutional: No chills, No dizziness, No fever, No weakness EENTM: no symptoms reported Respiratory: No cough, No phlegm; short of breath; No stridor, No wheezing Cardiovascular: No chest pain, No palpitations Gastrointestinal: No abdominal pain, No diarrhea, No nausea, No vomiting Genitourinary: No dysuria, No frequency Musculoskeletal: no symptoms reported Skin: No pruritus, No rash Psychiatric/Neurological: Denies Headache (MARYANNE OSCAR APRN) All Other Systems Reviewed Negative Unless Noted: Yes (MARYANNE OSCAR APRN) Past Prguftb-Htsjfq-Bjqtzh Hx Patient Social History Tobacco Use?: No Use of E-Cig and/or Vaping dev: No Substance use?: No Alcohol Use?: Yes Alcohol type: Hard Liquor Alcohol Frequency: Daily (MARYANNE OSCAR APRN) Immunizations Up To Date Tetanus Booster (TDap): Less than 5yrs PED Vaccines UTD: Yes Influenza Vaccine Up-to-Date: Yes; Up-to-Date First/Initial COVID19 Vaccinat: 2020 Second COVID19 Vaccination Woo: 2020 Third COVID19 Vaccination Date: 2021 COVID19 Vaccine Solid Waste Engineer: NAWAF (MARYANNE OSCAR APRN) Seasonal Allergies Seasonal Allergies: Yes (took allergy shots for 5 years) (MARYANNE OSCAR APRN) Past Medical History Surgery/Hospitalization HX: Cellulitis/Sepsis 12/2021 Surgeries: Yes (ANKLE X2,UMBIL HERNIA, ROTATOR CUFF, R BREAST LUMPECTOMY) Abdominal, Breast, Cardiac, Gallbladder, Orthopedic Respiratory: No Currently Using CPAP: No Currently Using BIPAP: No Cardiac: Yes (RIGHT LEG MORE SWOLLEN THAN LEFT CHRONICALLY) Atrial Fibrillation, Chronic Edema/Swelling, Hypertension, Valvular Heart Disease Neurological: Yes (POLIO--RIGHT LEG AFFECTED) Reproductive Disorders: No Female Reproductive Disorders: Denies PLEATER HAND History: Menopausal Sexually Transmitted Disease: No HIV/AIDS: No Genitourinary: No Gastrointestinal: Yes Abdominal Hernia, Gastroesophageal Reflux, Gall Bladder Disease Musculoskeletal: Yes (R FEMUR FRACTURE-NO SURG; MULTIPLE ORTHO SURGERIES;R LEG POLIO) Arthritis Endocrine: Yes (MORBID OBESITY) Hypothyroidsim HEENT: Yes (GLASSES) Cataract Hearing Impairment: Hard of Hearing, Bilateral Hearing Aide Cancer: Yes (lumpectomy in 2010 and radiation 28 days) Breast Did You Recieve Any Treatments: Yes What Type of Treatment Did You: Radiation, Surgical Intervention Psychosocial: No Integumentary: Yes (CELLULITIS OF LEG 12/2021) Blood Disorders: No Adverse Reaction/Blood Tranf: No (N/A) (MARYANNE OSCAR APRN) Family Medical History Reviewed Nursing Family Hx (MARYANNE OSCAR APRN) Cardiovascular disease 19 MOTHER, Onset:79 ( at 79) G8 SISTER, Onset:75 (alive) Completed stroke 19 FATHER, Onset:77 ( at 77 with stroke) Gastroenteritis G8 SISTER, Onset:64 (alive) CHRONIC RIGHT KNEE PAIN PAST SURGICAL HISTORY: -LEFT CATARACT SURGERY 06/2020 -CHOLECYSTECTOMY -UMBILICAL HERNIA REPAIR -RIGHT BREAST LUMPECTOMY FOR CANCER 2010 -RIGHT ANKLE X 2 -RIGHT SHOULDER ROTATOR CUFF REPAIR -RIGHT KNEE SCOPE 04/[address] DOTSON -CARDIOVERSIONS FOR ATRIAL FIBRILLATION 12/25/2017 AND 01/22/[address] LEROY -CARDIAC CATH 12/11/[address] LEROY. CONCLUSION: 1. No angiographically significant coronary artery disease. 2. Normal regional wall motion. 3. Normal global left ventricular systolic function with an ejection fraction of 65%. 4. Mild elevation of left ventricular end-diastolic pressure. (MARYANNE OSCAR APRN) Physical Exam Vital Signs - First Documented 05/31/22 05/31/22 09:07 12:15 Temp 36.8 Pulse 86 Resp 20 B/P (MAP) 138/88 (105) Pulse Ox 96 O2 Delivery Room Air FiO2 21 (MUSA ZHU MD) Capillary Refill : Less Than 3 Seconds (MARYANNE OSCAR APRN) Height: 5'5.00" Weight: 245lbs. 0.0oz. 111.593090ev; 42.00 BMI Method:Stated General Appearance: WD/WN, no apparent distress Neck: non-tender, full range of motion, supple, normal inspection Respiratory: chest non-tender, lungs clear, normal breath sounds, no respiratory distress, no accessory muscle use Cardiovascular: regular rate, rhythm, no edema, other (no anterior chest wall tenderness to palpation) Gastrointestinal: normal bowel sounds, non tender Extremities: normal range of motion, non-tender Neurologic/Psychiatric: alert, normal mood/affect, oriented x 3 Skin: normal color, warm/dry (MARYANNE OSCAR APRN) Procedures/Interventions Suture Size: 4-0 (MARYANNE OSCAR APRN) Progress/Results/Core Measures Suspected Sepsis SIRS Temperature: Pulse: 86 Respiratory Rate: 20 Laboratory Tests 05/31/22 09:18: White Blood Count 7.5 Blood Pressure 138 /88 Mean: 105 Laboratory Tests 05/31/22 09:18: Creatinine 0.71, INR Comment 1.2, Platelet Count 457H, Total Bilirubin 0.7 (MARYANNE OSCAR APRN) Results/Orders Lab Results Laboratory Tests Test 05/31/22 09:18 05/31/22 11:43 Range/Units White Blood Count 7.5 4.3-11.0 10^3/uL Red Blood Count 4.90 3.80-5.11 10^6/uL Hemoglobin 13.9 11.5-16.0 g/dL Hematocrit 42 35-52 % Mean Corpuscular Volume 87 80-99 fL Mean Corpuscular Hemoglobin 28 25-34 pg Mean Corpuscular Hemoglobin Concent 33 32-36 g/dL Red Cell Distribution Width 14.3 10.0-14.5 % Platelet Count 457 H 130-400 10^3/uL Mean Platelet Volume 9.7 9.0-12.2 fL Immature Granulocyte % (Auto) 0 % Neutrophils (%) (Auto) 70 42-75 % Lymphocytes (%) (Auto) 22 12-44 % Monocytes (%) (Auto) 7 0-12 % Eosinophils (%) (Auto) 0 0-10 % Basophils (%) (Auto) 1 0-10 % Neutrophils # (Auto) 5.3 1.8-7.8 10^3/uL Lymphocytes # (Auto) 1.7 1.0-4.0 10^3/uL Monocytes # (Auto) 0.5 0.0-1.0 10^3/uL Eosinophils # (Auto) 0.0 0.0-0.3 10^3/uL Basophils # (Auto) 0.0 0.0-0.1 10^3/uL Immature Granulocyte # (Auto) 0.0 0.0-0.1 10^3/uL Prothrombin Time 15.6 H 12.2-14.7 SEC INR Comment 1.2 0.8-1.4 Activated Partial Thromboplast Time 32 24-35 SEC Sodium Level 127 L 135-145 MMOL/L Potassium Level 4.0 3.6-5.0 MMOL/L Chloride Level 92 L 98-107 MMOL/L Carbon Dioxide Level 24 21-32 MMOL/L Anion Gap 11 5-14 MMOL/L Blood Urea Nitrogen 10 7-18 MG/DL Creatinine 0.71 0.60-1.30 MG/DL Estimat Glomerular Filtration Rate 89 BUN/Creatinine Ratio 14 Glucose Level 112 H 70-105 MG/DL Calcium Level 10.2 H 8.5-10.1 MG/DL Corrected Calcium 10.0 8.5-10.1 MG/DL Magnesium Level 1.8 1.6-2.4 MG/DL Total Bilirubin 0.7 0.1-1.0 MG/DL Aspartate Amino Transf (AST/SGOT) 20 5-34 U/L Alanine Aminotransferase (ALT/SGPT) 25 0-55 U/L Alkaline Phosphatase 87 40-136 U/L Myoglobin 31.4 10.0-92.0 NG/ML Troponin I < 0.028 <0.028 NG/ML C-Reactive Protein High Sensitivity 0.39 0.00-0.50 MG/DL B-Type Natriuretic Peptide 136.1 H <100.0 PG/ML Total Protein 8.5 H 6.4-8.2 GM/DL Albumin 4.3 3.2-4.5 GM/DL Influenza Type A (RT-PCR) Not Detected Not Detecte Influenza Type B (RT-PCR) Not Detected Not Detecte SARS-CoV-2 RNA (RT-PCR) Not Detected Not Detecte Urine Color YELLOW Urine Clarity CLEAR Urine pH 5.5 5-9 Urine Specific [place] 1.020 1.016-1.022 Urine Protein NEGATIVE NEGATIVE Urine Glucose (UA) NEGATIVE NEGATIVE Urine Ketones NEGATIVE NEGATIVE Urine Nitrite POSITIVE H NEGATIVE Urine Bilirubin NEGATIVE NEGATIVE Urine Urobilinogen 0.2 < = 1.0 MG/DL Urine Leukocyte Esterase TRACE H NEGATIVE Urine RBC (Auto) NEGATIVE NEGATIVE Urine RBC NONE /HPF Urine WBC 5-10 H /HPF Urine Squamous Epithelial Cells RARE /HPF Urine Crystals NONE /LPF Urine Bacteria LARGE H /HPF Urine Casts NONE /LPF Urine Mucus NEGATIVE /LPF Urine Culture Indicated YES (MUSA ZHU MD) My Orders Orders - MUSA ZHU MD Cbc With Automated Diff (05/31/22 09:16) Magnesium (05/31/22 09:16) Chest 1 View, Ap/Pa Only (05/31/22 09:16) Ekg Tracing (05/31/22 09:16) Comprehensive Metabolic Panel (05/31/22 09:16) Myoglobin Serum (05/31/22 09:16) Protime With Inr (05/31/22 09:16) Partial Thromboplastin Time (05/31/22 09:16) O2 (05/31/22 09:16) Monitor-Rhythm Ecg Trace Only (05/31/22 09:16) Ed Iv/Invasive Line Start (05/31/22 09:16) Bnp [place] (05/31/22 09:16) Troponin I [place] (05/31/22 09:16) Hs C Reactive Protein (05/31/22 09:16) Ua Culture If Indicated (05/31/22 09:16) Covid 19 Inhouse Test (05/31/22 10:06) Influenza A And B By Pcr (05/31/22 10:06) Urine Culture (05/31/22 11:43) (MUSA ZHU MD) Medications Given in ED Current Medications Medications Dose Ordered Sig/Darryn Route Start Time Stop Time Status Last Admin Dose Admin Albuterol/ Ipratropium 3 ml ONCE ONCE INH 05/31/22 11:30 05/31/22 11:31 DC 05/31/22 12:15 3 ML (MUSA ZHU MD) Vital Signs/I&O 05/31/22 05/31/22 05/31/22 09:07 12:15 12:55 Temp 36.8 Pulse 86 89 Resp 20 22 B/P (MAP) 138/88 (105) 138/67 Pulse Ox 96 99 96 O2 Delivery Room Air Room Air Room Air FiO2 21 (MUSA ZHU MD) Vital Signs/I&O Capillary Refill : Less Than 3 Seconds (MARYANNE OSCAR APRN) Blood Pressure Mean: 105 Progress Note : Time: 11:28 Progress Note Labs were ordered on patient prior to me seeing her. When I evaluated her I reviewed known labs with her. Of note, her sodium was 127. She was not symptomatic to this at this time. Her only complaint at this time is shortness of breath. Does report that she is already feeling better. Will give breathing treatment and obtain urine and determine treatment from there. 1220: UA positive for infection. Will go ahead and treat for UTI. Instructed to increase sodium in diet due to low sodium. Symptoms regarding low sodium were discussed with patient along with reasons to return to the ER. Additional reasons to return to the ER were discussed with patient in addition. Patient verbalized understanding. (MARYANNE OSCAR APRN) Diagnostic Imaging Diagonstic Imaging: Xray Plain Films/CT/US/NM/MRI: chest Comments NAME: MICHEL PRINCE [facility] REC#: [id number] PT STATUS: REG ER : 1945 PHYSICIAN: MUSA ZHU MD ADMIT DATE: 05/31/22/ER Signed Date of Exam:05/31/22 CHEST 1 VIEW, AP/PA ONLY PATIENT HISTORY: Chest pain. TECHNIQUE: Single frontal view of the chest. COMPARISON: 04/28/2022 FINDINGS: The lung volumes are normal. No focal consolidation is seen. No large pleural effusion or pneumothorax is seen. The cardiomediastinal silhouette is mildly large but stable in size. There is aortic atherosclerosis. No acute osseous abnormality is seen. IMPRESSION: No acute pulmonary abnormality seen. Dictated by: Dictated on workstation # [id number] Dict: 05/31/22 0955 Trans: 05/31/22 1142 [id number] Interpreted by: DALLIN BALLESTEROS MD Electronically signed by: DALLIN BALLESTEROS MD 05/31/22 1142 (MARYANNE OSCAR APRN) Departure Impression Primary Impression: UTI (urinary tract infection) Qualified Codes: N30.00 - Acute cystitis without hematuria Additional Impression: Hyponatremia Disposition: 01 HOME, SELF-CARE Condition: Stable Departure-Patient Inst. Decision time for Depature: 12:22 (MARYANNE OSCAR APRN) Referrals: LONNIE MCDONALD MD (PCP) Primary Care Physician WKAN MCNEIL APRN (Family) Primary Care Physician Patient Instructions: Urinary Tract Infection, Adult (DC), Hyponatremia Add. Discharge Instructions: 1. Home and rest. 2. Increase sodium in diet. 3. Alternate Tylenol/Ibuprofen as needed for pain. 4. Push fluids. 5. Follow up with PCP as needed. 6. Bactrim as directed until finished. 7. Return here if worse or concerns. All discharge instructions reviewed with patient and/or family. Voiced understanding. Scripts Sulfamethoxazole/Trimethoprim (Bactrim Ds Tablet) 800 Mg-160 Mg Tablet 1 EACH PO BID, #14 TAB Prov: MARYANNE OSCAR APRN 05/31/22 ATTENDING PHYSICIAN NOTE: I was physically present as attending physician in the emergency department during the care of this patient, but I was not directly involved in the decision making or delivery of care for this patient. (MUSA ZHU MD) MARYANNE OSCAR APRN May 31, 2022 11:28 MUSA ZHU MD May 31, 2022 19:48
[2022-05-31] MEDS ORDERED: RT-ALBUTEROL/IPRATROPIUM 3 ML (DUONEB) VIAL INH ONE (11:30)
[2022-05-31 11:51] LABS: BILIRUBIN,URINE NEGATIVE (NEGATIVE); CLARITY,URINE CLEAR; COLOR,URINE YELLOW; GLUCOSE, URINE (UA) NEGATIVE (NEGATIVE); KETONES,URINE NEGATIVE (NEGATIVE); LEUKOCYTE ESTERASE ,URINE TRACE (NEGATIVE); NITRITE,URINE POSITIVE (NEGATIVE); PH,URINE 5.5 (5-9); PROTEIN,URINE NEGATIVE (NEGATIVE)
[2022-05-31 12:01] LABS: BACTERIA,URINE LARGE /HPF; SQUAMOUS EPITHELIAL CELL,UR RARE /HPF
[2022-05-31] MEDS ORDERED: SULF-221 PO (12:23)
[2022-05-31 12:55] VITALS: BP 138/67
== END 2022-05-31 12:55 | disposition home or self-care (01) ==
LOC: EDUNIT# 09:01 → ER 09:04
DX: N39.0 Urinary tract infection, site not specified (principal); E87.1 Hypo-osmolality and hyponatremia; R06.02 Shortness of breath; E66.01 Morbid (severe) obesity due to excess calories; Z68.41 Body mass index [BMI] 40.0-44.9, adult; Z20.822 Contact with and (suspected) exposure to COVID-19
CPT/HCPCS: 36415; 71045; 80053; 81000; 83735; 83874; 83880; 84484; 85025; 85610; 85730; 86141; 87077; 87088; 87186; 87636; 93005; 93041; 94640

== ENCOUNTER → 2022-08-17 | Outpatient (CLI) | payer MEDICARE ==
[~2022-08-17] MED LIST changes: +SULF-221 PO
== END ==
LOC: CARD 10:29
PROVIDERS: ATTEND Internal Medicine Cardiovascular Disease
DX: I51.7 Cardiomegaly (principal); I34.0 Nonrheumatic mitral (valve) insufficiency
CPT/HCPCS: 93306